=== PATIENT | male | born 1975 | race Two or more races ===

== ENCOUNTER 2021-04-24 18:03 | Inpatient (IN) | payer OTHER ==
[~2021-04-24] VITALS: Ht 165.1 cm; Wt 138.8 kg
[2021-04-24 18:20] VITALS: BP 165/87
[2021-04-24 19:00] VITALS: BP 152/83
[2021-04-24] MEDS ORDERED: DEXTROSE 50% 25 GM / 50ML DISP.SYRIN. IV PRN (19:45)
[2021-04-24] MEDS ORDERED: hydrALAZINE 20 MG/ML VIAL. IVP PRN (19:45)
[2021-04-24 20:00] VITALS: BP 119/80
[2021-04-24] MEDS ORDERED: REMDESIVIR LOAD in IV NORMAL SALINE 250ML TV IV ONE (20:00)
[2021-04-24] MEDS: LIDOCAINE (700MG/PATCH) PATCH. TD SCH (20:58)
[2021-04-24] MEDS: INSULIN LISPRO 300 UNITS/3 ML VIAL. SQ SCH (20:59)
[2021-04-24 21:00] VITALS: BP 131/85
[2021-04-24 22:00] VITALS: BP 126/79
[2021-04-24 23:00] VITALS: BP 137/82
[2021-04-25] VITALS (24 sets, daily range): BP systolic 115–161; BP diastolic 62–95
[2021-04-25] MEDS ORDERED: STERILE WATER for RESP 1,000 ML BAG. INH PRN (00:30)
[2021-04-25 09:06] LABS: BASE EXCESS ABG -2 mmol/L (-3-3); HCO3 ABG 23 mmol/L (21-28); PCO2 ABG 38 mmHg (35-46); PO2 ABG 101 mmHg (75-108); SAT O2 ABG 97 % (92-99)
[2021-04-25 09:08] LABS: FIO2 ABG 100
[2021-04-25] MEDS: DEXAMETHASONE SOD PHOS 4 MG/ML VIAL IVP SCH (09:19)
[2021-04-25] MEDS: INSULIN LISPRO 300 UNITS/3 ML VIAL. SQ SCH ×4 (09:19→20:13)
[2021-04-25 09:21] LABS: BASO % 0 % (0-3); EOS % 0 % (0-3); HEMATOCRIT 41.9 % (39.0-53.0); HEMOGLOBIN 14.3 g/dL (13.0-17.5); LYMPH # 0.3 x10^3/uL (1.0-4.8); LYMPH % 7 % (24-48); MEAN CORPUSCULAR HEMOGLOBIN 30 pg (25-35); MEAN CORPUSCULAR HGB CONC 34 g/dL (31-37); MEAN CORPUSCULAR VOLUME 87 fL (79-100); MONO # 0.3 x10^3/uL (0.0-1.1); MONO % 7 % (0-9); NEUT # 3.3 x10^3/uL (1.8-7.7); NEUT % 86 % (31-73); PLATELET COUNT 168 x10^3/uL (140-400); RED BLOOD COUNT 4.82 x10^6/uL (4.30-5.70); RED CELL DISTRIBUTION WIDTH 14.2 % (11.5-14.5); WHITE BLOOD COUNT 3.9 x10^3/uL (4.0-11.0)
[2021-04-25] MEDS: LIDOCAINE (700MG/PATCH) PATCH. TD SCH (09:21)
[2021-04-25 09:31] LABS: CALCIUM 8.1 mg/dL (8.5-10.1); CREATININE 1.1 mg/dL (0.7-1.3); GFR 71.8; POTASSIUM 4.6 mmol/L (3.5-5.1)
--- NOTE | 2021-04-25 09:42 | RAD ---
XR CHEST 1V INDICATION: Covid . COMPARISON STUDY: 04/24/2021. FINDINGS: Lungs: Normal lung volume. Stable diffuse bilateral opacities. Pleura: No pleural effusion or pneumothorax. Heart and Mediastinum: Stable cardiomediastinal silhouette and great vessels. Bones and Soft Tissues: Stable regional skeleton and soft tissues. IMPRESSION: Stable diffuse bilateral opacities. Electronically signed by: Edwin Pascual MD (04/25/2021 9:40 AM) [id number]
[2021-04-25 10:22] LABS: % BANDS 5 % (0-9); % LYMPHS 10 % (24-48); % MONOS 2 % (0-10); % SEGS 83 % (35-66)
[2021-04-25 10:23] LABS: PLT ESTIMATE ADEQUATE (ADEQUATE)
[2021-04-25] MEDS ORDERED: HYDROcodone/APAP 5/325MG 1 TAB TABLET PO PRN (12:00)
--- NOTE | 2021-04-25 12:16 | CONS ---
DATE OF CONSULTATION: 04/25/2021 ATTENDING PHYSICIAN: Dr. Conroy. CONSULTING PHYSICIAN: Monique De Oliveira MD REASON FOR CONSULTATION: The patient is seen in pulmonary consultation at the request of Dr. Conroy for COVID-19 positivity, acute respiratory failure. HISTORY OF PRESENT ILLNESS: The patient is a 45-year-old who was transferred from . He basically has no underlying respiratory disorder. He was tested positive on 04/23/2021, progressed to increasing shortness of breath. He has received IV steroids and IV remdesivir. PAST MEDICAL AND SURGICAL HISTORY: Unremarkable. ALLERGIES: No known drug allergies. SOCIAL HISTORY: Unknown. REVIEW OF SYSTEMS: Unobtainable secondary to patient's condition. CURRENT MEDICATIONS: List was reviewed. Once again, he has received IV steroids and IV remdesivir. He is also on Lovenox 60 q.12h. PHYSICAL EXAMINATION: GENERAL APPEARANCE: Obese individual with a BMI of 51, currently on BiPAP. I spoke with RT. He does better on BiPAP than Vapotherm. RESPIRATORY: On visual inspection, he had increased respiratory rate, but was maintaining saturations above 90%. He had minimal edema. No significant paroxysmal breathing patterns. DIAGNOSTIC DATA: Chest x-ray and labs reviewed compatible with CHF. CT of the chest was reviewed. White count was low. Arterial blood gas earlier pH of 7.40, PaCO2 of 38, pO2 of 101. Electrolytes were noted. BUN and creatinine were normal. IMPRESSION: 1. Acute hypoxemic respiratory failure secondary to COVID-19 viral pneumonia. 2. COVID-19 viral pneumonia, acute respiratory distress syndrome. 3. Morbid obesity. PLAN: 1. Continue current support with BiPAP, the patient does better with BiPAP and Vapotherm. 2. Monitor closely, he may end up being intubated. 3. Remdesivir. 4. Steroids. 5. Deep venous thrombosis prophylaxis. 6. CT angiogram reviewed, no evidence of pulmonary embolism. We will decrease Lovenox to once daily. I do appreciate the privilege in sharing in the patient's care. ALEXANDR/CORDELIA SEGUNDO: Gerald TID: [id number]
--- NOTE | 2021-04-25 14:30 | HP ---
ADMIT DATE: 04/24/2021 CHIEF COMPLAINT: Respiratory failure. HISTORY OF PRESENT ILLNESS: The patient is a pleasant 45-year-old male who presented to [facility] with respiratory failure. He is COVID-19 positive. He has now been transferred to our intensive care unit where he is being examined in room 114. He is currently on BiPAP and Vapotherm. PAST MEDICAL HISTORY: None. ALLERGIES: None. FAMILY HISTORY: Hypertension. SOCIAL HISTORY: Does not drink, smoke or take drugs. MEDICATIONS: Reviewed, please refer to the MRAD. REVIEW OF SYSTEMS: Unable to obtain. The patient is quite weak and resting. PHYSICAL EXAMINATION: VITALS: His respiratory rate is about 20, O2 sat is 90%. GENERAL: No apparent distress. Alert and oriented. HEENT: He has BiPAP and Vapotherm on. EYES: Extraocular muscles are intact, pupils are equally round and reactive to light and accommodation MUSCULOSKELETAL: Well developed, well nourished, good range of motion ENDOCRINE: No thyromegaly was palpated LYMPHATICS: No cervical chain or axillary nodes were noted HEMATOPOIETIC: No bruising NECK: Supple, no JVD, no thyromegaly was noted. LUNGS: He has bibasilar crackles. HEART: RRR, S1, S2 present. Peripheral pulses intact, no obvious murmurs were noted. ABDOMEN: Soft, nontender. Positive bowel sounds no organomegaly, normal bowel sounds. EXTREMITIES: He has 1+ edema. He also has SCDs in place. NEUROLOGIC: Normal speech, normal tone. A and O x3, moves all extremities, no obvious focal deficits. PSYCHIATRIC: Normal affect, normal mood. Stable. SKIN: No ulcerations or rashes, good skin turgor, no jaundice. VASCULAR: Good capillary refill, neurovascular bundle appears to be intact. DIAGNOSTIC STUDIES: Chest x-ray shows pneumonia and heart failure with stable diffuse bilateral opacities. LABORATORY DATA: White count 3.9, hemoglobin 14, platelets 168. Electrolytes are normal. Glucose is a little high at 243. Calcium is low at 8.1. ASSESSMENT AND PLAN: COVID-19, respiratory failure. The patient has been admitted to the ICU. We are using COVID protocol including remdesivir, steroids, antibiotics, vitamins, minerals, beta agonist, oxygen, cough syrup, aspirin and we will try to continue his other home meds. DVT prophylaxis. Full code. PROGNOSIS: Guarded. CC TIME: [address]: Salvatore TID: [phone]
[2021-04-25] MEDS: REMDESIVIR 100mg in NORMAL SALINE 250ML X 4 DAYS IV SCH (19:31)
[2021-04-25] MEDS: LACTOBACILLUS RHAMNOSUS GG 1 CAPSULE. PO SCH (20:12)
[2021-04-25] MEDS: PATCH REMOVAL. MC SCH (20:13)
[2021-04-26] VITALS (23 sets, daily range): BP systolic 93–144; BP diastolic 67–89
[2021-04-26] MEDS ORDERED: SALIVA STIMULANT AGENT 44ML SPRAY BOTTLE. PO PRN (04:30)
[2021-04-26 06:08] LABS: HEMATOCRIT 42.7 % (39.0-53.0); HEMOGLOBIN 14.2 g/dL (13.0-17.5); RED BLOOD COUNT 4.85 x10^6/uL (4.30-5.70); RED CELL DISTRIBUTION WIDTH 14.1 % (11.5-14.5)
[2021-04-26 06:22] LABS: CALCIUM 8.6 mg/dL (8.5-10.1); GFR 80.1; POTASSIUM 5.1 mmol/L (3.5-5.1)
--- NOTE | 2021-04-26 08:30 | PDOC ---
PULMONARY PROGRESS NOTES DATE: 04/26/21 TIME: 08:29 Subjective Patient appears comfortable on BiPAP Vitals Vital Signs Date Time Temp Pulse Resp B/P (MAP) Pulse Ox O2 Delivery O2 Flow Rate FiO2 04/26/21 06:00 80 23 134/79 (97) 94 BiPAP/CPAP 04/26/21 04:00 98.8 98.8 Comments Patient is seen doing the COVID-19 viral pandemic, no paroxysmal breathing pattern, minimal edema. Labs Laboratory Tests Test 04/24/21 20:55 04/25/21 08:00 04/25/21 08:55 04/25/21 12:40 Glucose (Fingerstick) 243 mg/dL (70-99) 234 mg/dL (70-99) 253 mg/dL (70-99) O2 Saturation 97 % (92-99) Arterial Blood pH 7.40 (7.35-7.45) Arterial Blood pCO2 at Patient Temp 38 mmHg (35-46) Arterial Blood pO2 at Patient Temp 101 mmHg (75-108) Arterial Blood HCO3 23 mmol/L (21-28) Arterial Blood Base Excess -2 mmol/L (-3-3) FiO2 100 White Blood Count 3.9 x10^3/uL (4.0-11.0) Red Blood Count 4.82 x10^6/uL (4.30-5.70) Hemoglobin 14.3 g/dL (13.0-17.5) Hematocrit 41.9 % (39.0-53.0) Mean Corpuscular Volume 87 fL (79-100) Mean Corpuscular Hemoglobin 30 pg (25-35) Mean Corpuscular Hemoglobin Concent 34 g/dL (31-37) Red Cell Distribution Width 14.2 % (11.5-14.5) Platelet Count 168 x10^3/uL (140-400) Neutrophils (%) (Auto) 86 % (31-73) Lymphocytes (%) (Auto) 7 % (24-48) Monocytes (%) (Auto) 7 % (0-9) Eosinophils (%) (Auto) 0 % (0-3) Basophils (%) (Auto) 0 % (0-3) Neutrophils # (Auto) 3.3 x10^3/uL (1.8-7.7) Lymphocytes # (Auto) 0.3 x10^3/uL (1.0-4.8) Monocytes # (Auto) 0.3 x10^3/uL (0.0-1.1) Eosinophils # (Auto) 0.0 x10^3/uL (0.0-0.7) Basophils # (Auto) 0.0 x10^3/uL (0.0-0.2) Segmented Neutrophils % 83 % (35-66) Band Neutrophils % 5 % (0-9) Lymphocytes % 10 % (24-48) Monocytes % 2 % (0-10) Platelet Estimate Adequate (ADEQUATE) Sodium Level 138 mmol/L (136-145) Potassium Level 4.6 mmol/L (3.5-5.1) Chloride Level 102 mmol/L (98-107) Carbon Dioxide Level 25 mmol/L (21-32) Anion Gap 11 (6-14) Blood Urea Nitrogen 18 mg/dL (8-26) Creatinine 1.1 mg/dL (0.7-1.3) Estimated GFR (Cockcroft-Gault) 71.8 Glucose Level 232 mg/dL (70-99) Calcium Level 8.1 mg/dL (8.5-10.1) Test 04/25/21 17:49 04/25/21 20:08 04/26/21 05:55 Glucose (Fingerstick) 273 mg/dL (70-99) 237 mg/dL (70-99) White Blood Count 5.0 x10^3/uL (4.0-11.0) Red Blood Count 4.85 x10^6/uL (4.30-5.70) Hemoglobin 14.2 g/dL (13.0-17.5) Hematocrit 42.7 % (39.0-53.0) Mean Corpuscular Volume 88 fL (79-100) Mean Corpuscular Hemoglobin 29 pg (25-35) Mean Corpuscular Hemoglobin Concent 33 g/dL (31-37) Red Cell Distribution Width 14.1 % (11.5-14.5) Platelet Count 212 x10^3/uL (140-400) Sodium Level 138 mmol/L (136-145) Potassium Level 5.1 mmol/L (3.5-5.1) Chloride Level 103 mmol/L (98-107) Carbon Dioxide Level 26 mmol/L (21-32) Anion Gap 9 (6-14) Blood Urea Nitrogen 22 mg/dL (8-26) Creatinine 1.0 mg/dL (0.7-1.3) Estimated GFR (Cockcroft-Gault) 80.1 Glucose Level 211 mg/dL (70-99) Calcium Level 8.6 mg/dL (8.5-10.1) Laboratory Tests Test 04/25/21 08:55 04/25/21 12:40 04/25/21 17:49 04/25/21 20:08 White Blood Count 3.9 x10^3/uL (4.0-11.0) Red Blood Count 4.82 x10^6/uL (4.30-5.70) Hemoglobin 14.3 g/dL (13.0-17.5) Hematocrit 41.9 % (39.0-53.0) Mean Corpuscular Volume 87 fL (79-100) Mean Corpuscular Hemoglobin 30 pg (25-35) Mean Corpuscular Hemoglobin Concent 34 g/dL (31-37) Red Cell Distribution Width 14.2 % (11.5-14.5) Platelet Count 168 x10^3/uL (140-400) Neutrophils (%) (Auto) 86 % (31-73) Lymphocytes (%) (Auto) 7 % (24-48) Monocytes (%) (Auto) 7 % (0-9) Eosinophils (%) (Auto) 0 % (0-3) Basophils (%) (Auto) 0 % (0-3) Neutrophils # (Auto) 3.3 x10^3/uL (1.8-7.7) Lymphocytes # (Auto) 0.3 x10^3/uL (1.0-4.8) Monocytes # (Auto) 0.3 x10^3/uL (0.0-1.1) Eosinophils # (Auto) 0.0 x10^3/uL (0.0-0.7) Basophils # (Auto) 0.0 x10^3/uL (0.0-0.2) Segmented Neutrophils % 83 % (35-66) Band Neutrophils % 5 % (0-9) Lymphocytes % 10 % (24-48) Monocytes % 2 % (0-10) Platelet Estimate Adequate (ADEQUATE) Sodium Level 138 mmol/L (136-145) Potassium Level 4.6 mmol/L (3.5-5.1) Chloride Level 102 mmol/L (98-107) Carbon Dioxide Level 25 mmol/L (21-32) Anion Gap 11 (6-14) Blood Urea Nitrogen 18 mg/dL (8-26) Creatinine 1.1 mg/dL (0.7-1.3) Estimated GFR (Cockcroft-Gault) 71.8 Glucose Level 232 mg/dL (70-99) Glucose (Fingerstick) 234 mg/dL (70-99) 253 mg/dL (70-99) 273 mg/dL (70-99) 237 mg/dL (70-99) Calcium Level 8.1 mg/dL (8.5-10.1) Test 04/26/21 05:55 White Blood Count 5.0 x10^3/uL (4.0-11.0) Red Blood Count 4.85 x10^6/uL (4.30-5.70) Hemoglobin 14.2 g/dL (13.0-17.5) Hematocrit 42.7 % (39.0-53.0) Mean Corpuscular Volume 88 fL (79-100) Mean Corpuscular Hemoglobin 29 pg (25-35) Mean Corpuscular Hemoglobin Concent 33 g/dL (31-37) Red Cell Distribution Width 14.1 % (11.5-14.5) Platelet Count 212 x10^3/uL (140-400) Sodium Level 138 mmol/L (136-145) Potassium Level 5.1 mmol/L (3.5-5.1) Chloride Level 103 mmol/L (98-107) Carbon Dioxide Level 26 mmol/L (21-32) Anion Gap 9 (6-14) Blood Urea Nitrogen 22 mg/dL (8-26) Creatinine 1.0 mg/dL (0.7-1.3) Estimated GFR (Cockcroft-Gault) 80.1 Glucose Level 211 mg/dL (70-99) Calcium Level 8.6 mg/dL (8.5-10.1) Impression . IMPRESSION: 1. Acute hypoxemic respiratory failure secondary to COVID-19 viral pneumonia. 2. COVID-19 viral pneumonia, acute respiratory distress syndrome. 3. Morbid obesity. Plan . Updated 04/26 Patient appears to be doing well on BiPAP Remdesivir DVT GI prophylaxis Nutritional support Steroid PLAN: 1. Continue current support with BiPAP, the patient does better with BiPAP and Vapotherm. 2. Monitor closely, he may end up being intubated. 3. Remdesivir. 4. Steroids. 5. Deep venous thrombosis prophylaxis. 6. CT angiogram reviewed, no evidence of pulmonary embolism. We will decrease Lovenox to once daily. I do appreciate the privilege in sharing in the patient's care. HEATHER MOLINA MD Apr 26, 2021 08:30
[2021-04-26 09:47] LABS: BASE EXCESS ABG 1 mmol/L (-3-3); HCO3 ABG 25 mmol/L (21-28); PCO2 ABG 42 mmHg (35-46); PO2 ABG 67 mmHg (75-108); SAT O2 ABG 94 % (92-99)
[2021-04-26 09:49] LABS: FIO2 ABG 100
[2021-04-26] MEDS: LACTOBACILLUS RHAMNOSUS GG 1 CAPSULE. PO SCH ×2 (09:59→20:24)
[2021-04-26] MEDS: DEXAMETHASONE SOD PHOS 4 MG/ML VIAL IVP SCH (09:59)
[2021-04-26] MEDS: LIDOCAINE (700MG/PATCH) PATCH. TD SCH (10:00)
[2021-04-26] MEDS: INSULIN LISPRO 300 UNITS/3 ML VIAL. SQ SCH ×4 (10:06→20:42)
--- NOTE | 2021-04-26 11:37 | NUR ---
SS following for discharge planning. SS reviewed pt chart and discussed with pt RN. Pt is from home and is currently on the BIPAP at 100%. COVID19 positive. Pt on IV Remdesivir and IV Decadron. Not stable. SS will continue to follow for discharge planning.
--- NOTE | 2021-04-26 13:50 | PDOC ---
[employer] PROGRESS NOTE Date of Service DOS: DATE: 04/26/21 TIME: 13:48 Chief Complaint Chief Complaint COVID-19 respiratory failure History of Present Illness History of Present Illness 04/26/2021 Patient seen and examined in the ICU He is on BiPAP with as needed Vapotherm Has IV remdesivir hanging Discussed with RN Chart reviewed He appears critically ill Vitals/I&O Vitals/I&O: Vital Signs Date Time Temp Pulse Resp B/P (MAP) Pulse Ox O2 Delivery O2 Flow Rate FiO2 04/26/21 12:45 94 BiPAP/CPAP 04/26/21 10:00 78 20 131/88 (102) 04/26/21 04:00 98.8 98.8 I & O 04/25/21 04/25/21 04/26/21 15:00 23:00 07:00 Intake Total 900 ml 400 ml Output Total 1000 ml 450 ml Balance -100 ml 400 ml -450 ml Physical Exam General: severe distress Heart: Other (Tachycardic) Lungs: Crackles Abdomen: No tenderness Extremities: No clubbing Skin: No rashes Labs Labs: Laboratory Tests Test 04/25/21 17:49 04/25/21 20:08 04/26/21 05:55 04/26/21 08:00 Glucose (Fingerstick) 273 mg/dL (70-99) 237 mg/dL (70-99) White Blood Count 5.0 x10^3/uL (4.0-11.0) Red Blood Count 4.85 x10^6/uL (4.30-5.70) Hemoglobin 14.2 g/dL (13.0-17.5) Hematocrit 42.7 % (39.0-53.0) Mean Corpuscular Volume 88 fL (79-100) Mean Corpuscular Hemoglobin 29 pg (25-35) Mean Corpuscular Hemoglobin Concent 33 g/dL (31-37) Red Cell Distribution Width 14.1 % (11.5-14.5) Platelet Count 212 x10^3/uL (140-400) Sodium Level 138 mmol/L (136-145) Potassium Level 5.1 mmol/L (3.5-5.1) Chloride Level 103 mmol/L (98-107) Carbon Dioxide Level 26 mmol/L (21-32) Anion Gap 9 (6-14) Blood Urea Nitrogen 22 mg/dL (8-26) Creatinine 1.0 mg/dL (0.7-1.3) Estimated GFR (Cockcroft-Gault) 80.1 Glucose Level 211 mg/dL (70-99) Calcium Level 8.6 mg/dL (8.5-10.1) O2 Saturation 94 % (92-99) Arterial Blood pH 7.41 (7.35-7.45) Arterial Blood pCO2 at Patient Temp 42 mmHg (35-46) Arterial Blood pO2 at Patient Temp 67 mmHg (75-108) Arterial Blood HCO3 25 mmol/L (21-28) Arterial Blood Base Excess 1 mmol/L (-3-3) FiO2 100 Assessment and Plan Assessmemt and Plan COVID-19 respiratory failure Plan ICU monitoring Covid protocol Remdesivir IV antibiotics IV steroids Vitamins and minerals Antitussives Trying to titrate down O2 requirements continue BiPAP Aspirin Home meds DVT prophylaxis Full code Prognosis guarded He remains critically ill CC time 31-minute Comment Review of Relevant I have reviewed the following items jeanne (where applicable) has been applied. Medications: Current Medications Medications (Trade) Dose Ordered Sig/Berna Route PRN Reason Start Time Stop Time Status Last Admin Dose Admin Remdesivir 100 mg/ Sodium Chloride 230 ml @ 460 mls/hr Q24H IV 04/25/21 20:00 04/28/21 20:29 04/25/21 19:31 Miscellaneous (Lidoderm Patch Removal) 1 ea QHS MC 04/25/21 21:00 04/25/21 20:13 Enoxaparin Sodium (Lovenox 60mg Syringe) 60 mg DAILY SQ 04/26/21 09:00 04/26/21 09:59 Lactobacillus Rhamnosus (Culturelle) 1 cap BID PO 04/25/21 21:00 04/26/21 09:59 Justifications for Admission Other Justification MITCHELL FAUST III DO Apr 26, 2021 13:50
[2021-04-26] MEDS: ASPIRIN CHEWABLE 81 MG TABLET. PO SCH (18:19)
[2021-04-26] MEDS: cefTRIAXone IV Push 1 GM VIAL. IVP SCH (18:19)
[2021-04-26] MEDS: MULTIVITAMIN with MINERAL TABLET. PO SCH (18:19)
[2021-04-26] MEDS: DOXYCYCLINE HYCLATE 100 MG in IV DEXTROSE 5% 100ML 100 ML IV SCH ×2 (18:20→20:24)
[2021-04-26] MEDS: REMDESIVIR 100mg in NORMAL SALINE 250ML X 4 DAYS IV SCH (20:15)
[2021-04-26] MEDS: PATCH REMOVAL. MC SCH (20:24)
[2021-04-27] VITALS (24 sets, daily range): BP systolic 119–149; BP diastolic 72–88
[2021-04-27] MEDS: ASPIRIN CHEWABLE 81 MG TABLET. PO SCH (07:50)
[2021-04-27] MEDS: INSULIN LISPRO 300 UNITS/3 ML VIAL. SQ SCH ×4 (07:51→21:21)
[2021-04-27] MEDS: LACTOBACILLUS RHAMNOSUS GG 1 CAPSULE. PO SCH ×2 (08:50→21:11)
[2021-04-27] MEDS: MULTIVITAMIN with MINERAL TABLET. PO SCH (08:50)
[2021-04-27] MEDS: DEXAMETHASONE SOD PHOS 4 MG/ML VIAL IVP SCH (08:51)
[2021-04-27] MEDS: LIDOCAINE (700MG/PATCH) PATCH. TD SCH (08:52)
[2021-04-27] MEDS: DOXYCYCLINE HYCLATE 100 MG in IV DEXTROSE 5% 100ML 100 ML IV SCH ×2 (08:54→21:11)
--- NOTE | 2021-04-27 09:33 | PDOC ---
PULMONARY PROGRESS NOTES DATE: 04/27/21 TIME: 09:33 Subjective Patient appears comfortable on BiPAP Vitals Vital Signs Date Time Temp Pulse Resp B/P (MAP) Pulse Ox O2 Delivery O2 Flow Rate FiO2 04/27/21 09:00 75 33 146/82 (103) 90 BiPAP/CPAP 04/27/21 08:00 97.9 97.9 Comments Patient is seen doing the COVID-19 viral pandemic, no paroxysmal breathing pattern, minimal edema. Lungs: Crackles Labs Laboratory Tests Test 04/25/21 12:40 04/25/21 17:49 04/25/21 20:08 04/26/21 05:55 Glucose (Fingerstick) 253 mg/dL (70-99) 273 mg/dL (70-99) 237 mg/dL (70-99) White Blood Count 5.0 x10^3/uL (4.0-11.0) Red Blood Count 4.85 x10^6/uL (4.30-5.70) Hemoglobin 14.2 g/dL (13.0-17.5) Hematocrit 42.7 % (39.0-53.0) Mean Corpuscular Volume 88 fL (79-100) Mean Corpuscular Hemoglobin 29 pg (25-35) Mean Corpuscular Hemoglobin Concent 33 g/dL (31-37) Red Cell Distribution Width 14.1 % (11.5-14.5) Platelet Count 212 x10^3/uL (140-400) Sodium Level 138 mmol/L (136-145) Potassium Level 5.1 mmol/L (3.5-5.1) Chloride Level 103 mmol/L (98-107) Carbon Dioxide Level 26 mmol/L (21-32) Anion Gap 9 (6-14) Blood Urea Nitrogen 22 mg/dL (8-26) Creatinine 1.0 mg/dL (0.7-1.3) Estimated GFR (Cockcroft-Gault) 80.1 Glucose Level 211 mg/dL (70-99) Calcium Level 8.6 mg/dL (8.5-10.1) Test 04/26/21 08:00 04/26/21 08:27 04/26/21 18:30 04/26/21 20:33 O2 Saturation 94 % (92-99) Arterial Blood pH 7.41 (7.35-7.45) Arterial Blood pCO2 at Patient Temp 42 mmHg (35-46) Arterial Blood pO2 at Patient Temp 67 mmHg (75-108) Arterial Blood HCO3 25 mmol/L (21-28) Arterial Blood Base Excess 1 mmol/L (-3-3) FiO2 100 Glucose (Fingerstick) 188 mg/dL (70-99) 212 mg/dL (70-99) 262 mg/dL (70-99) Laboratory Tests Test 04/26/21 18:30 04/26/21 20:33 Glucose (Fingerstick) 212 mg/dL (70-99) 262 mg/dL (70-99) Impression . IMPRESSION: 1. Acute hypoxemic respiratory failure secondary to COVID-19 viral pneumonia. 2. COVID-19 viral pneumonia, acute respiratory distress syndrome. 3. Morbid obesity. Plan . Updated 04/27 Patient continues to be okay with BiPAP Remdesivir Steroids Nutritional support updated 04/26 Patient appears to be doing well on BiPAP Remdesivir DVT GI prophylaxis Nutritional support Steroid PLAN: 1. Continue current support with BiPAP, the patient does better with BiPAP and Vapotherm. 2. Monitor closely, he may end up being intubated. 3. Remdesivir. 4. Steroids. 5. Deep venous thrombosis prophylaxis. 6. CT angiogram reviewed, no evidence of pulmonary embolism. We will decrease Lovenox to once daily. I do appreciate the privilege in sharing in the patient's care. HEATHER MOLINA MD Apr 27, 2021 09:33
--- NOTE | 2021-04-27 09:42 | PDOC ---
[facility] [facility] PROGRESS NOTE Date of Service DOS: DATE: 04/27/21 TIME: 09:26 Chief Complaint Chief Complaint CC: COVID-19 viral pneumonia Acute hypoxemic respiratory failure Morbid obesity History of Present Illness History of Present Illness 04/26/2021 Patient seen and examined in the ICU He is on BiPAP with as needed Vapotherm Has IV remdesivir hanging Discussed with RN Chart reviewed He appears critically ill 04/27/21: Patient was seen and examined in the ICU today. Afebrile, morbidly obese patient. Currently on BiPAP 06/06. O2 saturation while examined was 100%. Discussed with RN who said patient stated he preferred to be on BiPAP over non- rebreather or Vapotherm. His blood sugar was high today and he was given insulin to bring that down. Patient also has history of anxiety so has been given Xanax. Patient complains of upper back pain so has a Lidocaine patch which he says has been working well for that pain. Chart reviewed. Vitals/I&O Vitals/I&O: Vital Signs Date Time Temp Pulse Resp B/P (MAP) Pulse Ox O2 Delivery O2 Flow Rate FiO2 04/27/21 08:11 100 BiPAP/CPAP 04/27/21 08:00 97.9 63 25 149/79 (102) 97.9 I & O 04/26/21 04/26/21 04/27/21 15:00 23:00 07:00 Intake Total 570 ml Output Total 500 ml 0 ml 400 ml Balance -500 ml 570 ml -400 ml Physical Exam General: Oriented X3, severe distress Heart: Other (Tachycardic) Lungs: Crackles Abdomen: No tenderness Extremities: No clubbing Skin: No rashes Labs Labs: Laboratory Tests Test 04/26/21 18:30 04/26/21 20:33 Glucose (Fingerstick) 212 mg/dL (70-99) 262 mg/dL (70-99) Review of Systems Review of Systems: GI: no nausea. no vomiting. MSK: patient admits upper back pain. Eyes: no changes in vision. no blurry vision. Psych: patient admits anxiety. Assessment and Plan Assessmemt and Plan COVID-19 viral pneumonia Acute hypoxemic respiratory failure Morbid obesity Plan: 1. ICU monitoring 2. Covid protocol (Remdesivir day 3, aspirin, multivitamin, Robitussin, dexamethasone) 3. Continue IV antibiotics 4. Continue BiPAP and try to titrate down O2 requirements 5. Home meds 6. Full code 7. Appreciate subspecialist input 8. Prognosis guarded CC time 32 minutes Comment Review of Relevant I have reviewed the following items jeanne (where applicable) has been applied. Medications: Current Medications Medications (Trade) Dose Ordered Sig/Berna Route PRN Reason Start Time Stop Time Status Last Admin Dose Admin Multivitamins (Thera M Plus) 1 tab DAILY PO 04/26/21 14:00 04/27/21 08:50 Aspirin (Aspirin Chewable) 81 mg [id number] PO 04/26/21 14:00 04/27/21 07:50 Doxycycline Hyclate 100 mg/ Dextrose 100 ml @ 50 mls/hr Q12HR IV 04/26/21 14:00 04/27/21 08:54 Ceftriaxone Sodium (Rocephin) 1 gm Q24H IVP 04/26/21 14:00 04/26/21 18:19 Justifications for Admission Other Justification MITCHELL FAUST III DO Apr 27, 2021 09:42
[2021-04-27] MEDS: cefTRIAXone IV Push 1 GM VIAL. IVP SCH (15:07)
--- NOTE | 2021-04-27 16:23 | NUR ---
SS following up with discharge planning. SS reviewed pt chart and discussed with pt RN. Pt is currently on BIPAP at 100%. COVID19 positive. Pt on IV Remdesivir, IV Decadron, IV Rocephin, and IV Doxycycline. Pt primarily Omani speaking. Pt's family requesting DPOA paperwork as son is too young to make decisions. DPOA paperwork in Omani and Maltese left on the chart. SS left voicemail for pt's nephewSergio, , requesting assistance with translating for name, address, and phone number of who DPOA would be listed. Pt's RN notified. SS will continue to follow for discharge planning.
[2021-04-27] MEDS: REMDESIVIR 100mg in NORMAL SALINE 250ML X 4 DAYS IV SCH (19:50)
--- NOTE | 2021-04-27 20:11 | NUR ---
Pt in bed resting comfortable do not appear to be in pain or distress at this time assessment completed vss poc explained pt Japanese speaking only call light in reach. Pt on bipap will resume care and continue to monitor pt.
[2021-04-27] MEDS: PATCH REMOVAL. MC SCH (21:11)
[2021-04-28] VITALS (24 sets, daily range): BP systolic 99–153; BP diastolic 60–91
[2021-04-28] MEDS: DEXAMETHASONE SOD PHOS 4 MG/ML VIAL IVP SCH (08:48)
[2021-04-28] MEDS: LACTOBACILLUS RHAMNOSUS GG 1 CAPSULE. PO SCH ×2 (08:48→20:34)
[2021-04-28] MEDS: ASPIRIN CHEWABLE 81 MG TABLET. PO SCH (08:48)
[2021-04-28] MEDS: MULTIVITAMIN with MINERAL TABLET. PO SCH (08:48)
[2021-04-28] MEDS: INSULIN LISPRO 300 UNITS/3 ML VIAL. SQ SCH ×4 (08:50→20:36)
[2021-04-28] MEDS: LIDOCAINE (700MG/PATCH) PATCH. TD SCH (08:54)
[2021-04-28] MEDS: DOXYCYCLINE HYCLATE 100 MG in IV DEXTROSE 5% 100ML 100 ML IV SCH ×2 (08:55→20:33)
--- NOTE | 2021-04-28 09:34 | PDOC ---
PULMONARY PROGRESS NOTES DATE: 04/28/21 TIME: 09:34 Subjective Patient appears comfortable on BiPAP, currently eating Vitals Vital Signs Date Time Temp Pulse Resp B/P (MAP) Pulse Ox O2 Delivery O2 Flow Rate FiO2 04/28/21 08:49 97 BiPAP/CPAP 04/28/21 06:00 63 20 136/83 (100) 04/28/21 04:00 40.0 04/28/21 03:00 98.4 98.4 Comments Patient is seen doing the COVID-19 viral pandemic, no paroxysmal breathing pattern, minimal edema. Lungs: Crackles Labs Laboratory Tests Test 04/26/21 18:30 04/26/21 20:33 04/27/21 11:20 04/27/21 17:01 Glucose (Fingerstick) 212 mg/dL (70-99) 262 mg/dL (70-99) 265 mg/dL (70-99) 272 mg/dL (70-99) Test 04/27/21 21:18 Glucose (Fingerstick) 288 mg/dL (70-99) Laboratory Tests Test 04/27/21 11:20 04/27/21 17:01 04/27/21 21:18 Glucose (Fingerstick) 265 mg/dL (70-99) 272 mg/dL (70-99) 288 mg/dL (70-99) Impression . IMPRESSION: 1. Acute hypoxemic respiratory failure secondary to COVID-19 viral pneumonia. 2. COVID-19 viral pneumonia, acute respiratory distress syndrome. 3. Morbid obesity. Plan . Updated 04/28 Appears to be holding his own Continue BiPAP Remdesivir, steroids Nutritional support DVT prophylaxis adjusted dosage Discontinue Rocephin updated 04/27 Patient continues to be okay with BiPAP Remdesivir Steroids Nutritional support updated 04/26 Patient appears to be doing well on BiPAP Remdesivir DVT GI prophylaxis Nutritional support Steroid HEATHER MOLINA MD Apr 28, 2021 09:34
--- NOTE | 2021-04-28 11:10 | PDOC ---
[facility] PROGRESS NOTE Date of Service DOS: DATE: 04/28/21 TIME: 11:02 Chief Complaint Chief Complaint CC: COVID-19 viral pneumonia Acute hypoxemic respiratory failure Morbid obesity History of Present Illness History of Present Illness 04/26/2021 Patient seen and examined in the ICU He is on BiPAP with as needed Vapotherm Has IV remdesivir hanging Discussed with RN Chart reviewed He appears critically ill 04/27/21: Patient was seen and examined in the ICU today. Afebrile, morbidly obese patient. Currently on BiPAP 06/06. O2 saturation while examined was 100%. Discussed with RN who said patient stated he preferred to be on BiPAP over non- rebreather or Vapotherm. His blood sugar was high today and he was given insulin to bring that down. Patient also has history of anxiety so has been given Xanax. Patient complains of upper back pain so has a Lidocaine patch which he says has been working well for that pain. Chart reviewed. 04/28/21: Patient was seen and examined in the ICU. Currently on BiPAP 08/06 with 100% FiO2. His O2 sat was at 99% while being examined. Peralta to bedside in place. Discussed with RN. Chart reviewed. Vitals/I&O Vitals/I&O: Vital Signs Date Time Temp Pulse Resp B/P (MAP) Pulse Ox O2 Delivery O2 Flow Rate FiO2 04/28/21 10:25 97 BiPAP/CPAP 04/28/21 06:00 63 20 136/83 (100) 04/28/21 04:00 40.0 04/28/21 03:00 98.4 98.4 I & O 04/27/21 04/27/21 04/28/21 14:59 22:59 06:59 Intake Total 340 ml 480 ml 200 ml Output Total 525 ml 550 ml 800 ml Balance -185 ml -70 ml -600 ml Physical Exam General: Oriented X3, severe distress Heart: Other (Tachycardic) Lungs: Crackles Abdomen: No tenderness Extremities: No clubbing Skin: No rashes Labs Labs: Laboratory Tests Test 04/27/21 11:20 04/27/21 17:01 04/27/21 21:18 Glucose (Fingerstick) 265 mg/dL (70-99) 272 mg/dL (70-99) 288 mg/dL (70-99) Review of Systems Review of Systems: GI: no nausea. no vomiting. Eyes: no changes in vision. no blurry vision. Assessment and Plan Assessmemt and Plan COVID-19 viral pneumonia Acute hypoxemic respiratory failure Morbid obesity Plan: 1. ICU monitoring 2. Continue IV antibiotics 3. Covid protocol (Remdesivir day 4, aspirin, multivitamin, Robitussin, dexamethasone) 4. Trying to titrate down O2 requirements 5. Home meds 6. Full code 7. Appreciate subspecialist input 9. Prognosis guarded CC time 33 minutes Comment Review of Relevant I have reviewed the following items jeanne (where applicable) has been applied. Justifications for Admission Other Justification MITCHELL FAUST III DO Apr 28, 2021 11:09
[2021-04-28] MEDS: REMDESIVIR 100mg in NORMAL SALINE 250ML X 4 DAYS IV SCH (20:33)
[2021-04-28] MEDS: PATCH REMOVAL. MC SCH (20:34)
[2021-04-29] VITALS (24 sets, daily range): BP systolic 121–159; BP diastolic 74–94
[2021-04-29] MEDS: INSULIN LISPRO 300 UNITS/3 ML VIAL. SQ SCH ×4 (07:30→21:00)
[2021-04-29] MEDS: ASPIRIN CHEWABLE 81 MG TABLET. PO SCH (08:57)
[2021-04-29] MEDS: MULTIVITAMIN with MINERAL TABLET. PO SCH (08:58)
[2021-04-29] MEDS: ENOXAPARIN 40 MG/0.4 ML SYRINGE. SQ SCH (08:58)
[2021-04-29] MEDS: LACTOBACILLUS RHAMNOSUS GG 1 CAPSULE. PO SCH ×2 (08:58→21:11)
[2021-04-29] MEDS: DEXAMETHASONE SOD PHOS 4 MG/ML VIAL IVP SCH (08:58)
[2021-04-29] MEDS: LIDOCAINE (700MG/PATCH) PATCH. TD SCH ×2 (08:58→09:00)
[2021-04-29] MEDS: DOXYCYCLINE HYCLATE 100 MG in IV DEXTROSE 5% 100ML 100 ML IV SCH ×2 (09:25→21:11)
--- NOTE | 2021-04-29 09:59 | PDOC ---
PULMONARY PROGRESS NOTES DATE: 04/29/21 TIME: 09:56 Subjective Patient appears comfortable on BiPAP, 100% FiO2. Vitals Vital Signs Date Time Temp Pulse Resp B/P (MAP) Pulse Ox O2 Delivery O2 Flow Rate FiO2 04/29/21 09:00 99.5 100 25 148/81 (103) 94 BiPAP/CPAP 99.5 04/28/21 18:00 15.0 Comments Patient is seen doing the COVID-19 viral pandemic, no paroxysmal breathing pattern, minimal edema. Labs Laboratory Tests Test 04/27/21 11:20 04/27/21 17:01 04/27/21 21:18 04/28/21 08:11 Glucose (Fingerstick) 265 mg/dL (70-99) 272 mg/dL (70-99) 288 mg/dL (70-99) 183 mg/dL (70-99) Test 04/28/21 11:55 04/28/21 17:00 04/28/21 19:50 Glucose (Fingerstick) 205 mg/dL (70-99) 252 mg/dL (70-99) 302 mg/dL (70-99) Laboratory Tests Test 04/28/21 11:55 04/28/21 17:00 04/28/21 19:50 Glucose (Fingerstick) 205 mg/dL (70-99) 252 mg/dL (70-99) 302 mg/dL (70-99) Comments Chest x-ray reviewed 04/25/2021. Diffuse bilateral interstitial infiltrates Impression . IMPRESSION: 1. Acute hypoxemic respiratory failure secondary to COVID-19 viral pneumonia. 2. COVID-19 viral pneumonia, acute respiratory distress syndrome. 3. Morbid obesity. Plan . Updated 04/29 Appears to be holding his own Continue BiPAP, wean FiO2 to 95%. Status post remdesivir, steroids for total of 10 days. Nutritional support DVT prophylaxis adjusted dosage Discussed with RN and respiratory therapist. Updated 04/28 Appears to be holding his own Continue BiPAP Remdesivir, steroids Nutritional support DVT prophylaxis adjusted dosage Discontinue Rocephin updated 04/27 Patient continues to be okay with BiPAP Remdesivir Steroids Nutritional support updated 04/26 Patient appears to be doing well on BiPAP Remdesivir DVT GI prophylaxis Nutritional support Steroid ANKUR ROMEO MD Apr 29, 2021 09:59
[2021-04-29 10:24] LABS: BASO % 0 % (0-3); EOS % 0 % (0-3); HEMATOCRIT 42.9 % (39.0-53.0); HEMOGLOBIN 14.1 g/dL (13.0-17.5); LYMPH # 0.3 x10^3/uL (1.0-4.8); LYMPH % 3 % (24-48); MEAN CORPUSCULAR HEMOGLOBIN 30 pg (25-35); MEAN CORPUSCULAR HGB CONC 33 g/dL (31-37); MEAN CORPUSCULAR VOLUME 89 fL (79-100); MONO # 0.5 x10^3/uL (0.0-1.1); MONO % 4 % (0-9); NEUT % 93 % (31-73); PLATELET COUNT 168 x10^3/uL (140-400); RED CELL DISTRIBUTION WIDTH 13.9 % (11.5-14.5); WHITE BLOOD COUNT 10.8 x10^3/uL (4.0-11.0)
[2021-04-29 10:27] LABS: CALCIUM 8.4 mg/dL (8.5-10.1); CREATININE 0.9 mg/dL (0.7-1.3); GFR 90.1; POTASSIUM 4.4 mmol/L (3.5-5.1)
--- NOTE | 2021-04-29 13:02 | PDOC ---
[facility] PROGRESS NOTE Date of Service DOS: DATE: 04/29/21 TIME: 12:52 Chief Complaint Chief Complaint CC: COVID-19 viral pneumonia Acute hypoxemic respiratory failure Morbid obesity History of Present Illness History of Present Illness 04/26/2021 Patient seen and examined in the ICU He is on BiPAP with as needed Vapotherm Has IV remdesivir hanging Discussed with RN Chart reviewed He appears critically ill 04/27/21: Patient was seen and examined in the ICU today. Afebrile, morbidly obese patient. Currently on BiPAP 18/10. O2 saturation while examined was 100%. Discussed with RN who said patient stated he preferred to be on BiPAP over non- rebreather or Vapotherm. His blood sugar was high today and he was given insulin to bring that down. Patient also has history of anxiety so has been given Xanax. Patient complains of upper back pain so has a Lidocaine patch which he says has been working well for that pain. Chart reviewed. 04/28/21: Patient was seen and examined in the ICU. Currently on BiPAP 20/10 with 100% FiO2. His O2 sat was at 99% while being examined. Peralta to bedside in place. Discussed with RN. Chart reviewed. 04/29/21: Patient seen and examined in the ICU. He is currently on BiPAP 20/10 with 100% FiO2. While being examined, the patient had a 97% O2 sat. Peralta to bedside present. Discussed with RN. Chart reviewed. Vitals/I&O Vitals/I&O: Vital Signs Date Time Temp Pulse Resp B/P (MAP) Pulse Ox O2 Delivery O2 Flow Rate FiO2 04/29/21 12:04 99.8 92 32 138/76 (96) 96 BiPAP/CPAP 99.8 04/28/21 18:00 15.0 I & O 04/28/21 04/28/21 04/29/21 15:00 23:00 07:00 Intake Total 290 ml 430 ml Output Total 650 ml 600 ml 475 ml Balance -360 ml -170 ml -475 ml Physical Exam General: Oriented X3, severe distress Heart: Other (Tachycardic) Abdomen: No tenderness Extremities: No clubbing Skin: No rashes Labs Labs: Laboratory Tests Test 04/28/21 17:00 04/28/21 19:50 04/29/21 10:00 04/29/21 12:06 Glucose (Fingerstick) 252 mg/dL (70-99) 302 mg/dL (70-99) 222 mg/dL (70-99) White Blood Count 10.8 x10^3/uL (4.0-11.0) Red Blood Count 4.80 x10^6/uL (4.30-5.70) Hemoglobin 14.1 g/dL (13.0-17.5) Hematocrit 42.9 % (39.0-53.0) Mean Corpuscular Volume 89 fL (79-100) Mean Corpuscular Hemoglobin 30 pg (25-35) Mean Corpuscular Hemoglobin Concent 33 g/dL (31-37) Red Cell Distribution Width 13.9 % (11.5-14.5) Platelet Count 168 x10^3/uL (140-400) Neutrophils (%) (Auto) 93 % (31-73) Lymphocytes (%) (Auto) 3 % (24-48) Monocytes (%) (Auto) 4 % (0-9) Eosinophils (%) (Auto) 0 % (0-3) Basophils (%) (Auto) 0 % (0-3) Neutrophils # (Auto) 10.0 x10^3/uL (1.8-7.7) Lymphocytes # (Auto) 0.3 x10^3/uL (1.0-4.8) Monocytes # (Auto) 0.5 x10^3/uL (0.0-1.1) Eosinophils # (Auto) 0.0 x10^3/uL (0.0-0.7) Basophils # (Auto) 0.0 x10^3/uL (0.0-0.2) Sodium Level 139 mmol/L (136-145) Potassium Level 4.4 mmol/L (3.5-5.1) Chloride Level 103 mmol/L (98-107) Carbon Dioxide Level 28 mmol/L (21-32) Anion Gap 8 (6-14) Blood Urea Nitrogen 21 mg/dL (8-26) Creatinine 0.9 mg/dL (0.7-1.3) Estimated GFR (Cockcroft-Gault) 90.1 Glucose Level 172 mg/dL (70-99) Calcium Level 8.4 mg/dL (8.5-10.1) Review of Systems Review of Systems: GI: no nausea. no vomiting. Eyes: no changes in vision. no blurry vision. Assessment and Plan Assessmemt and Plan COVID-19 viral pneumonia Acute hypoxemic respiratory failure Morbid obesity Plan: 1. ICU monitoring 2. Continue IV antibiotics (Doxycycline) 3. Covid protocol (currently on Aspirin, Multivitamin, Robitussin Ac, Dexamethasone. Remdesivir completed on 04/28/21) 4. Titrate down O2 requirements 5. DVT prophylaxis (Lovenox 40mg SQ q 24hr) 6. Home meds 7. Full code 8. Appreciate subspecialist input 9. Prognosis guarded CC time 32 minutes Comment Review of Relevant I have reviewed the following items jeanne (where applicable) has been applied. Medications: Current Medications Medications (Trade) Dose Ordered Sig/Berna Route PRN Reason Start Time Stop Time Status Last Admin Dose Admin Enoxaparin Sodium (Lovenox 40mg Syringe) 40 mg DAILY SQ 04/29/21 09:00 04/29/21 08:58 Justifications for Admission Other Justification MITCHELL FAUST III DO Apr 29, 2021 13:02
[2021-04-29] MEDS: AA 4.25 %/CALCIUM/LYTES/D5W 1,000 ML IV SCH (15:50)
--- NOTE | 2021-04-29 16:28 | NUR ---
SS following up with discharge planning. SS reviewed pt chart and discussed with pt RN. Pt is currently on the BIPAP at 100%. COVID19 positive. Pt on Clinimix, IV Doxycycline, and IV Decadron. Self pay. Med Assist following. SS will continue to follow for discharge planning.
[2021-04-29] MEDS: PATCH REMOVAL. MC SCH (21:00)
[2021-04-29] MEDS: guaiFENesin/CODEINE 100mg/10mg 5 ML LIQUID PO PRN (21:11)
[2021-04-30] VITALS (21 sets, daily range): BP systolic 123–185; BP diastolic 59–93
[2021-04-30] MEDS: AA 4.25 %/CALCIUM/LYTES/D5W 1,000 ML IV SCH ×2 (04:42→18:18)
[2021-04-30] MEDS: guaiFENesin/CODEINE 100mg/10mg 5 ML LIQUID PO PRN (04:52)
[2021-04-30 05:36] LABS: BASO % 0 % (0-3); EOS # 0.1 x10^3/uL (0.0-0.7); EOS % 1 % (0-3); HEMATOCRIT 42.4 % (39.0-53.0); HEMOGLOBIN 14.1 g/dL (13.0-17.5); LYMPH # 0.4 x10^3/uL (1.0-4.8); LYMPH % 4 % (24-48); MEAN CORPUSCULAR HEMOGLOBIN 29 pg (25-35); MEAN CORPUSCULAR HGB CONC 33 g/dL (31-37); MEAN CORPUSCULAR VOLUME 88 fL (79-100); MONO # 0.3 x10^3/uL (0.0-1.1); MONO % 3 % (0-9); NEUT # 8.8 x10^3/uL (1.8-7.7); NEUT % 92 % (31-73); PLATELET COUNT 177 x10^3/uL (140-400); RED BLOOD COUNT 4.81 x10^6/uL (4.30-5.70); RED CELL DISTRIBUTION WIDTH 14.2 % (11.5-14.5); WHITE BLOOD COUNT 9.5 x10^3/uL (4.0-11.0)
[2021-04-30 05:44] LABS: CALCIUM 8.2 mg/dL (8.5-10.1); CREATININE 0.8 mg/dL (0.7-1.3); GFR 103.2; POTASSIUM 4.3 mmol/L (3.5-5.1)
[2021-04-30] MEDS: LIDOCAINE (700MG/PATCH) PATCH. TD SCH (09:00)
--- NOTE | 2021-04-30 10:12 | PDOC ---
PULMONARY PROGRESS NOTES DATE: 04/30/21 TIME: 10:11 Subjective Patient appears comfortable on BiPAP, 100% FiO2. Vitals Vital Signs Date Time Temp Pulse Resp B/P (MAP) Pulse Ox O2 Delivery O2 Flow Rate FiO2 04/30/21 08:30 93 BiPAP/CPAP 04/30/21 07:18 95 34 149/91 (110) 04/30/21 04:00 97.6 97.6 Comments Patient is seen doing the COVID-19 viral pandemic, no paroxysmal breathing pattern, minimal edema. Labs Laboratory Tests Test 04/28/21 11:55 04/28/21 17:00 04/28/21 19:50 04/29/21 10:00 Glucose (Fingerstick) 205 mg/dL (70-99) 252 mg/dL (70-99) 302 mg/dL (70-99) White Blood Count 10.8 x10^3/uL (4.0-11.0) Red Blood Count 4.80 x10^6/uL (4.30-5.70) Hemoglobin 14.1 g/dL (13.0-17.5) Hematocrit 42.9 % (39.0-53.0) Mean Corpuscular Volume 89 fL (79-100) Mean Corpuscular Hemoglobin 30 pg (25-35) Mean Corpuscular Hemoglobin Concent 33 g/dL (31-37) Red Cell Distribution Width 13.9 % (11.5-14.5) Platelet Count 168 x10^3/uL (140-400) Neutrophils (%) (Auto) 93 % (31-73) Lymphocytes (%) (Auto) 3 % (24-48) Monocytes (%) (Auto) 4 % (0-9) Eosinophils (%) (Auto) 0 % (0-3) Basophils (%) (Auto) 0 % (0-3) Neutrophils # (Auto) 10.0 x10^3/uL (1.8-7.7) Lymphocytes # (Auto) 0.3 x10^3/uL (1.0-4.8) Monocytes # (Auto) 0.5 x10^3/uL (0.0-1.1) Eosinophils # (Auto) 0.0 x10^3/uL (0.0-0.7) Basophils # (Auto) 0.0 x10^3/uL (0.0-0.2) Sodium Level 139 mmol/L (136-145) Potassium Level 4.4 mmol/L (3.5-5.1) Chloride Level 103 mmol/L (98-107) Carbon Dioxide Level 28 mmol/L (21-32) Anion Gap 8 (6-14) Blood Urea Nitrogen 21 mg/dL (8-26) Creatinine 0.9 mg/dL (0.7-1.3) Estimated GFR (Cockcroft-Gault) 90.1 Glucose Level 172 mg/dL (70-99) Calcium Level 8.4 mg/dL (8.5-10.1) Test 04/29/21 12:06 04/29/21 21:40 04/30/21 05:00 Glucose (Fingerstick) 222 mg/dL (70-99) 205 mg/dL (70-99) White Blood Count 9.5 x10^3/uL (4.0-11.0) Red Blood Count 4.81 x10^6/uL (4.30-5.70) Hemoglobin 14.1 g/dL (13.0-17.5) Hematocrit 42.4 % (39.0-53.0) Mean Corpuscular Volume 88 fL (79-100) Mean Corpuscular Hemoglobin 29 pg (25-35) Mean Corpuscular Hemoglobin Concent 33 g/dL (31-37) Red Cell Distribution Width 14.2 % (11.5-14.5) Platelet Count 177 x10^3/uL (140-400) Neutrophils (%) (Auto) 92 % (31-73) Lymphocytes (%) (Auto) 4 % (24-48) Monocytes (%) (Auto) 3 % (0-9) Eosinophils (%) (Auto) 1 % (0-3) Basophils (%) (Auto) 0 % (0-3) Neutrophils # (Auto) 8.8 x10^3/uL (1.8-7.7) Lymphocytes # (Auto) 0.4 x10^3/uL (1.0-4.8) Monocytes # (Auto) 0.3 x10^3/uL (0.0-1.1) Eosinophils # (Auto) 0.1 x10^3/uL (0.0-0.7) Basophils # (Auto) 0.0 x10^3/uL (0.0-0.2) Sodium Level 137 mmol/L (136-145) Potassium Level 4.3 mmol/L (3.5-5.1) Chloride Level 101 mmol/L (98-107) Carbon Dioxide Level 27 mmol/L (21-32) Anion Gap 9 (6-14) Blood Urea Nitrogen 22 mg/dL (8-26) Creatinine 0.8 mg/dL (0.7-1.3) Estimated GFR (Cockcroft-Gault) 103.2 Glucose Level 187 mg/dL (70-99) Calcium Level 8.2 mg/dL (8.5-10.1) Laboratory Tests Test 04/29/21 12:06 04/29/21 21:40 04/30/21 05:00 Glucose (Fingerstick) 222 mg/dL (70-99) 205 mg/dL (70-99) White Blood Count 9.5 x10^3/uL (4.0-11.0) Red Blood Count 4.81 x10^6/uL (4.30-5.70) Hemoglobin 14.1 g/dL (13.0-17.5) Hematocrit 42.4 % (39.0-53.0) Mean Corpuscular Volume 88 fL (79-100) Mean Corpuscular Hemoglobin 29 pg (25-35) Mean Corpuscular Hemoglobin Concent 33 g/dL (31-37) Red Cell Distribution Width 14.2 % (11.5-14.5) Platelet Count 177 x10^3/uL (140-400) Neutrophils (%) (Auto) 92 % (31-73) Lymphocytes (%) (Auto) 4 % (24-48) Monocytes (%) (Auto) 3 % (0-9) Eosinophils (%) (Auto) 1 % (0-3) Basophils (%) (Auto) 0 % (0-3) Neutrophils # (Auto) 8.8 x10^3/uL (1.8-7.7) Lymphocytes # (Auto) 0.4 x10^3/uL (1.0-4.8) Monocytes # (Auto) 0.3 x10^3/uL (0.0-1.1) Eosinophils # (Auto) 0.1 x10^3/uL (0.0-0.7) Basophils # (Auto) 0.0 x10^3/uL (0.0-0.2) Sodium Level 137 mmol/L (136-145) Potassium Level 4.3 mmol/L (3.5-5.1) Chloride Level 101 mmol/L (98-107) Carbon Dioxide Level 27 mmol/L (21-32) Anion Gap 9 (6-14) Blood Urea Nitrogen 22 mg/dL (8-26) Creatinine 0.8 mg/dL (0.7-1.3) Estimated GFR (Cockcroft-Gault) 103.2 Glucose Level 187 mg/dL (70-99) Calcium Level 8.2 mg/dL (8.5-10.1) Comments Chest x-ray reviewed 04/25/2021. Diffuse bilateral interstitial infiltrates Impression . IMPRESSION: 1. Acute hypoxemic respiratory failure secondary to COVID-19 viral pneumonia. 2. COVID-19 viral pneumonia, acute respiratory distress syndrome. 3. Morbid obesity. Plan . Updated 04/30 Appears to be holding his own Continue BiPAP, wean FiO2 to 95%. We will try 100% Vapotherm in the next 24 hours Status post remdesivir, steroids for total of 10 days. Nutritional support DVT prophylaxis adjusted dosage Discussed with RN and respiratory therapist. Updated 04/29 Appears to be holding his own Continue BiPAP, wean FiO2 to 95%. Status post remdesivir, steroids for total of 10 days. Nutritional support DVT prophylaxis adjusted dosage Discussed with RN and respiratory therapist. Updated 04/28 Appears to be holding his own Continue BiPAP Remdesivir, steroids Nutritional support DVT prophylaxis adjusted dosage Discontinue Rocephin updated 04/27 Patient continues to be okay with BiPAP Remdesivir Steroids Nutritional support updated 04/26 Patient appears to be doing well on BiPAP Remdesivir DVT GI prophylaxis Nutritional support Steroid ANKUR ROMEO MD Apr 30, 2021 10:12
[2021-04-30] MEDS: MULTIVITAMIN with MINERAL TABLET. PO SCH (10:41)
[2021-04-30] MEDS: ENOXAPARIN 40 MG/0.4 ML SYRINGE. SQ SCH (10:41)
[2021-04-30] MEDS: DEXAMETHASONE SOD PHOS 4 MG/ML VIAL IVP SCH (10:41)
[2021-04-30] MEDS: LACTOBACILLUS RHAMNOSUS GG 1 CAPSULE. PO SCH ×2 (10:41→20:33)
[2021-04-30] MEDS: ASPIRIN CHEWABLE 81 MG TABLET. PO SCH (10:43)
[2021-04-30] MEDS: DOXYCYCLINE HYCLATE 100 MG in IV DEXTROSE 5% 100ML 100 ML IV SCH ×2 (10:44→20:57)
[2021-04-30] MEDS: ACETAMINOPHEN 325 MG TABLET. PO PRN (11:11)
[2021-04-30] MEDS: INSULIN LISPRO 300 UNITS/3 ML VIAL. SQ SCH ×2 (11:12→18:00)
--- NOTE | 2021-04-30 11:26 | PDOC ---
[facility] PROGRESS NOTE Date of Service DOS: DATE: 04/30/21 TIME: : Chief Complaint Chief Complaint CC: COVID-19 viral pneumonia Acute hypoxemic respiratory failure Morbid obesity History of Present Illness History of Present Illness 04/26/2021 Patient seen and examined in the ICU He is on BiPAP with as needed Vapotherm Has IV remdesivir hanging Discussed with RN Chart reviewed He appears critically ill 04/27/21: Patient was seen and examined in the ICU today. Afebrile, morbidly obese patient. Currently on BiPAP 18/10. O2 saturation while examined was 100%. Discussed with RN who said patient stated he preferred to be on BiPAP over non- rebreather or Vapotherm. His blood sugar was high today and he was given insulin to bring that down. Patient also has history of anxiety so has been given Xanax. Patient complains of upper back pain so has a Lidocaine patch which he says has been working well for that pain. Chart reviewed. 04/28/21: Patient was seen and examined in the ICU. Currently on BiPAP 20/10 with 100% FiO2. His O2 sat was at 99% while being examined. Peralta to bedside in place. Discussed with RN. Chart reviewed. 04/29/21: Patient seen and examined in the ICU. He is currently on BiPAP 20/10 with 100% FiO2. While being examined, the patient had a 97% O2 sat. Peralta to bedside present. Discussed with RN. Chart reviewed. 04/30/21: Patient was seen and examined in the ICU today. Resting with NAD. He is on BiPAP 20/10. FiO2 is at 100%. Rate is 12. Current O2 sat is at 100%. Patient on Clinimix. Peralta to bedside in place. Discussed with RN. Chart reviewed. Vitals/I&O Vitals/I&O: Vital Signs Date Time Temp Pulse Resp B/P (MAP) Pulse Ox O2 Delivery O2 Flow Rate FiO2 04/30/21 11:06 100.7 104 38 150/90 (110) 90 BiPAP/CPAP 100.7 I & O 04/29/21 04/29/21 04/30/21 15:00 23:00 07:00 Intake Total 100 ml 384 ml 250 ml Output Total 550 ml 725 ml 425 ml Balance -450 ml -341 ml -175 ml Physical Exam General: Oriented X3, severe distress Heart: Other (Tachycardic) Abdomen: No tenderness Extremities: No clubbing Skin: No rashes Labs Labs: Laboratory Tests Test 04/29/21 12:06 04/29/21 21:40 04/30/21 05:00 Glucose (Fingerstick) 222 mg/dL (70-99) 205 mg/dL (70-99) White Blood Count 9.5 x10^3/uL (4.0-11.0) Red Blood Count 4.81 x10^6/uL (4.30-5.70) Hemoglobin 14.1 g/dL (13.0-17.5) Hematocrit 42.4 % (39.0-53.0) Mean Corpuscular Volume 88 fL (79-100) Mean Corpuscular Hemoglobin 29 pg (25-35) Mean Corpuscular Hemoglobin Concent 33 g/dL (31-37) Red Cell Distribution Width 14.2 % (11.5-14.5) Platelet Count 177 x10^3/uL (140-400) Neutrophils (%) (Auto) 92 % (31-73) Lymphocytes (%) (Auto) 4 % (24-48) Monocytes (%) (Auto) 3 % (0-9) Eosinophils (%) (Auto) 1 % (0-3) Basophils (%) (Auto) 0 % (0-3) Neutrophils # (Auto) 8.8 x10^3/uL (1.8-7.7) Lymphocytes # (Auto) 0.4 x10^3/uL (1.0-4.8) Monocytes # (Auto) 0.3 x10^3/uL (0.0-1.1) Eosinophils # (Auto) 0.1 x10^3/uL (0.0-0.7) Basophils # (Auto) 0.0 x10^3/uL (0.0-0.2) Sodium Level 137 mmol/L (136-145) Potassium Level 4.3 mmol/L (3.5-5.1) Chloride Level 101 mmol/L (98-107) Carbon Dioxide Level 27 mmol/L (21-32) Anion Gap 9 (6-14) Blood Urea Nitrogen 22 mg/dL (8-26) Creatinine 0.8 mg/dL (0.7-1.3) Estimated GFR (Cockcroft-Gault) 103.2 Glucose Level 187 mg/dL (70-99) Calcium Level 8.2 mg/dL (8.5-10.1) Review of Systems Review of Systems: GI: no nausea. no vomiting. Eyes: no changes in vision. no blurry vision. Assessment and Plan Assessmemt and Plan COVID-19 viral pneumonia Acute hypoxemic respiratory failure Morbid obesity Plan: 1. ICU monitoring 2. Continue IV antibiotics (Doxycycline) 3. Covid protocol (currently on Aspirin, Multivitamin, Robitussin Ac, Dexamethasone. Remdesivir completed on 04/28/21) 4. Trying to titrate down O2 requirements 5. Continue DVT prophylaxis (Lovenox 40mg SQ q 24hr) 6. Full code 7. Appreciate subspecialist input 8. Prognosis guarded CC time 31 minutes Comment Review of Relevant I have reviewed the following items jeanne (where applicable) has been applied. Medications: Current Medications Medications (Trade) Dose Ordered Sig/Berna Route PRN Reason Start Time Stop Time Status Last Admin Dose Admin Amino Acids/ Electrolytes/ Dextrose 1,000 ml @ 80 mls/hr [id number] IV 04/29/21 16:00 04/30/21 04:42 Acetaminophen (Tylenol) 650 mg PRN Q6HRS PRN PO MILD PAIN / TEMP > 100.3'F 04/30/21 11:15 04/30/21 11:11 Justifications for Admission Other Justification MITCHELL FAUST III DO Apr 30, 2021 11:26
[2021-04-30 16:49] LABS: BASE EXCESS ABG 1 mmol/L (-3-3); HCO3 ABG 25 mmol/L (21-28); PCO2 ABG 37 mmHg (35-46); PO2 ABG 53 mmHg (75-108); SAT O2 ABG 89 % (92-99)
[2021-04-30 16:50] LABS: FIO2 ABG 100
--- NOTE | 2021-04-30 18:34 | NUR ---
Patient oxygen requirements are at 100%, his sats are high70's-mid 80's, RR 30-40/min. The patient was educated on life support and he agreed to be placed on life support if need arises. ABG was obtained and this RN called Dr. Vargas with the results. Dr. Vargas's order is to not intubate at this time and decrease the EPAP from 12 to 6. Will continue to monitor patient.
[2021-04-30] MEDS: PATCH REMOVAL. MC SCH (20:35)
[2021-05-01] VITALS (24 sets, daily range): BP systolic 85–186; BP diastolic 55–95
[2021-05-01] MEDS: INSULIN LISPRO 300 UNITS/3 ML VIAL. SQ SCH ×4 (00:36→17:55)
[2021-05-01 05:29] LABS: BASO % 0 % (0-3); EOS % 0 % (0-3); HEMATOCRIT 41.2 % (39.0-53.0); HEMOGLOBIN 13.9 g/dL (13.0-17.5); LYMPH # 0.2 x10^3/uL (1.0-4.8); LYMPH % 2 % (24-48); MEAN CORPUSCULAR HEMOGLOBIN 30 pg (25-35); MEAN CORPUSCULAR HGB CONC 34 g/dL (31-37); MEAN CORPUSCULAR VOLUME 89 fL (79-100); MONO # 0.6 x10^3/uL (0.0-1.1); MONO % 6 % (0-9); NEUT # 9.3 x10^3/uL (1.8-7.7); NEUT % 92 % (31-73); PLATELET COUNT 179 x10^3/uL (140-400); RED BLOOD COUNT 4.66 x10^6/uL (4.30-5.70); WHITE BLOOD COUNT 10.1 x10^3/uL (4.0-11.0)
[2021-05-01] MEDS: AA 4.25 %/CALCIUM/LYTES/D5W 1,000 ML IV SCH (05:30)
[2021-05-01 05:42] LABS: CALCIUM 8.7 mg/dL (8.5-10.1); CREATININE 0.9 mg/dL (0.7-1.3); GFR 90.1; POTASSIUM 4.6 mmol/L (3.5-5.1)
[2021-05-01] MEDS: ASPIRIN CHEWABLE 81 MG TABLET. PO SCH (08:00)
[2021-05-01] MEDS: DEXMEDETOMIDINE 400 MCG in IV NORMAL SALINE 100ML 96 ML IV PRN ×4 (08:58→22:48)
[2021-05-01] MEDS: LACTOBACILLUS RHAMNOSUS GG 1 CAPSULE. PO SCH ×2 (09:00→21:40)
[2021-05-01] MEDS: LIDOCAINE (700MG/PATCH) PATCH. TD SCH (09:00)
[2021-05-01] MEDS: MULTIVITAMIN with MINERAL TABLET. PO SCH (09:00)
--- NOTE | 2021-05-01 11:01 | PDOC ---
PULMONARY PROGRESS NOTES DATE: 05/01/21 TIME: 10:59 Subjective Patient remains on BiPAP 100% FiO2. Oxygen level was marginal last night. Currently on Precedex drip Vitals Vital Signs Date Time Temp Pulse Resp B/P (MAP) Pulse Ox O2 Delivery O2 Flow Rate FiO2 05/01/21 10:18 101 27 157/86 (109) 86 BiPAP/CPAP 05/01/21 09:04 99.0 99.0 Comments Patient is seen doing the COVID-19 viral pandemic, no paroxysmal breathing pattern, minimal edema. Labs Laboratory Tests Test 04/29/21 12:06 04/29/21 21:40 04/30/21 05:00 04/30/21 16:31 Glucose (Fingerstick) 222 mg/dL (70-99) 205 mg/dL (70-99) White Blood Count 9.5 x10^3/uL (4.0-11.0) Red Blood Count 4.81 x10^6/uL (4.30-5.70) Hemoglobin 14.1 g/dL (13.0-17.5) Hematocrit 42.4 % (39.0-53.0) Mean Corpuscular Volume 88 fL (79-100) Mean Corpuscular Hemoglobin 29 pg (25-35) Mean Corpuscular Hemoglobin Concent 33 g/dL (31-37) Red Cell Distribution Width 14.2 % (11.5-14.5) Platelet Count 177 x10^3/uL (140-400) Neutrophils (%) (Auto) 92 % (31-73) Lymphocytes (%) (Auto) 4 % (24-48) Monocytes (%) (Auto) 3 % (0-9) Eosinophils (%) (Auto) 1 % (0-3) Basophils (%) (Auto) 0 % (0-3) Neutrophils # (Auto) 8.8 x10^3/uL (1.8-7.7) Lymphocytes # (Auto) 0.4 x10^3/uL (1.0-4.8) Monocytes # (Auto) 0.3 x10^3/uL (0.0-1.1) Eosinophils # (Auto) 0.1 x10^3/uL (0.0-0.7) Basophils # (Auto) 0.0 x10^3/uL (0.0-0.2) Sodium Level 137 mmol/L (136-145) Potassium Level 4.3 mmol/L (3.5-5.1) Chloride Level 101 mmol/L (98-107) Carbon Dioxide Level 27 mmol/L (21-32) Anion Gap 9 (6-14) Blood Urea Nitrogen 22 mg/dL (8-26) Creatinine 0.8 mg/dL (0.7-1.3) Estimated GFR (Cockcroft-Gault) 103.2 Glucose Level 187 mg/dL (70-99) Calcium Level 8.2 mg/dL (8.5-10.1) O2 Saturation 89 % (92-99) Arterial Blood pH 7.45 (7.35-7.45) Arterial Blood pCO2 at Patient Temp 37 mmHg (35-46) Arterial Blood pO2 at Patient Temp 53 mmHg (75-108) Arterial Blood HCO3 25 mmol/L (21-28) Arterial Blood Base Excess 1 mmol/L (-3-3) FiO2 100 Test 05/01/21 00:31 05/01/21 05:00 Glucose (Fingerstick) 228 mg/dL (70-99) White Blood Count 10.1 x10^3/uL (4.0-11.0) Red Blood Count 4.66 x10^6/uL (4.30-5.70) Hemoglobin 13.9 g/dL (13.0-17.5) Hematocrit 41.2 % (39.0-53.0) Mean Corpuscular Volume 89 fL (79-100) Mean Corpuscular Hemoglobin 30 pg (25-35) Mean Corpuscular Hemoglobin Concent 34 g/dL (31-37) Red Cell Distribution Width 14.0 % (11.5-14.5) Platelet Count 179 x10^3/uL (140-400) Neutrophils (%) (Auto) 92 % (31-73) Lymphocytes (%) (Auto) 2 % (24-48) Monocytes (%) (Auto) 6 % (0-9) Eosinophils (%) (Auto) 0 % (0-3) Basophils (%) (Auto) 0 % (0-3) Neutrophils # (Auto) 9.3 x10^3/uL (1.8-7.7) Lymphocytes # (Auto) 0.2 x10^3/uL (1.0-4.8) Monocytes # (Auto) 0.6 x10^3/uL (0.0-1.1) Eosinophils # (Auto) 0.0 x10^3/uL (0.0-0.7) Basophils # (Auto) 0.0 x10^3/uL (0.0-0.2) Sodium Level 136 mmol/L (136-145) Potassium Level 4.6 mmol/L (3.5-5.1) Chloride Level 101 mmol/L (98-107) Carbon Dioxide Level 27 mmol/L (21-32) Anion Gap 8 (6-14) Blood Urea Nitrogen 23 mg/dL (8-26) Creatinine 0.9 mg/dL (0.7-1.3) Estimated GFR (Cockcroft-Gault) 90.1 Glucose Level 182 mg/dL (70-99) Calcium Level 8.7 mg/dL (8.5-10.1) Laboratory Tests Test 04/30/21 16:31 05/01/21 00:31 05/01/21 05:00 O2 Saturation 89 % (92-99) Arterial Blood pH 7.45 (7.35-7.45) Arterial Blood pCO2 at Patient Temp 37 mmHg (35-46) Arterial Blood pO2 at Patient Temp 53 mmHg (75-108) Arterial Blood HCO3 25 mmol/L (21-28) Arterial Blood Base Excess 1 mmol/L (-3-3) FiO2 100 Glucose (Fingerstick) 228 mg/dL (70-99) White Blood Count 10.1 x10^3/uL (4.0-11.0) Red Blood Count 4.66 x10^6/uL (4.30-5.70) Hemoglobin 13.9 g/dL (13.0-17.5) Hematocrit 41.2 % (39.0-53.0) Mean Corpuscular Volume 89 fL (79-100) Mean Corpuscular Hemoglobin 30 pg (25-35) Mean Corpuscular Hemoglobin Concent 34 g/dL (31-37) Red Cell Distribution Width 14.0 % (11.5-14.5) Platelet Count 179 x10^3/uL (140-400) Neutrophils (%) (Auto) 92 % (31-73) Lymphocytes (%) (Auto) 2 % (24-48) Monocytes (%) (Auto) 6 % (0-9) Eosinophils (%) (Auto) 0 % (0-3) Basophils (%) (Auto) 0 % (0-3) Neutrophils # (Auto) 9.3 x10^3/uL (1.8-7.7) Lymphocytes # (Auto) 0.2 x10^3/uL (1.0-4.8) Monocytes # (Auto) 0.6 x10^3/uL (0.0-1.1) Eosinophils # (Auto) 0.0 x10^3/uL (0.0-0.7) Basophils # (Auto) 0.0 x10^3/uL (0.0-0.2) Sodium Level 136 mmol/L (136-145) Potassium Level 4.6 mmol/L (3.5-5.1) Chloride Level 101 mmol/L (98-107) Carbon Dioxide Level 27 mmol/L (21-32) Anion Gap 8 (6-14) Blood Urea Nitrogen 23 mg/dL (8-26) Creatinine 0.9 mg/dL (0.7-1.3) Estimated GFR (Cockcroft-Gault) 90.1 Glucose Level 182 mg/dL (70-99) Calcium Level 8.7 mg/dL (8.5-10.1) Comments Chest x-ray reviewed 04/25/2021. Diffuse bilateral interstitial infiltrates Impression . IMPRESSION: 1. Acute hypoxemic respiratory failure secondary to COVID-19 viral pneumonia. 2. COVID-19 viral pneumonia, acute respiratory distress syndrome. 3. Morbid obesity. Plan . Updated 05/01 Patient's oxygen level is marginal with a PO2 in the mid 50s. Initiated on Precedex drip. Tolerating the BiPAP better. Continue BiPAP, 100% FiO2. Will watch closely for need for intubation. Status post remdesivir, steroids for total of 10 days. Nutritional support DVT prophylaxis adjusted dosage Discussed with RN and respiratory therapist. addend: Patients O2 saturations dropped in 70's with increased WOB. d/w RN. Patient intubated. will follow ABG/ CXR cct 30 min Updated 04/30 Appears to be holding his own Continue BiPAP, wean FiO2 to 95%. We will try 100% Vapotherm in the next 24 hours Status post remdesivir, steroids for total of 10 days. Nutritional support DVT prophylaxis adjusted dosage Discussed with RN and respiratory therapist. Updated 04/29 Appears to be holding his own Continue BiPAP, wean FiO2 to 95%. Status post remdesivir, steroids for total of 10 days. Nutritional support DVT prophylaxis adjusted dosage Discussed with RN and respiratory therapist. Updated 04/28 Appears to be holding his own Continue BiPAP Remdesivir, steroids Nutritional support DVT prophylaxis adjusted dosage Discontinue Rocephin updated 04/27 Patient continues to be okay with BiPAP Remdesivir Steroids Nutritional support updated 04/26 Patient appears to be doing well on BiPAP Remdesivir DVT GI prophylaxis Nutritional support Steroid ANKUR ROMEO MD May 01, 2021 11:01
[2021-05-01] MEDS: DEXAMETHASONE SOD PHOS 4 MG/ML VIAL IVP SCH (11:08)
[2021-05-01] MEDS: DOXYCYCLINE HYCLATE 100 MG in IV DEXTROSE 5% 100ML 100 ML IV SCH ×2 (11:13→21:01)
[2021-05-01] MEDS: ENOXAPARIN 40 MG/0.4 ML SYRINGE. SQ SCH (11:16)
--- NOTE | 2021-05-01 11:22 | PDOC ---
[facility] PROGRESS NOTE Date of Service DOS: DATE: 05/01/21 TIME: 11:20 Chief Complaint Chief Complaint CC: COVID-19 viral pneumonia Acute hypoxemic respiratory failure Morbid obesity History of Present Illness History of Present Illness 04/26/2021 Patient seen and examined in the ICU He is on BiPAP with as needed Vapotherm Has IV remdesivir hanging Discussed with RN Chart reviewed He appears critically ill 04/27/21: Patient was seen and examined in the ICU today. Afebrile, morbidly obese patient. Currently on BiPAP 18/10. O2 saturation while examined was 100%. Discussed with RN who said patient stated he preferred to be on BiPAP over non- rebreather or Vapotherm. His blood sugar was high today and he was given insulin to bring that down. Patient also has history of anxiety so has been given Xanax. Patient complains of upper back pain so has a Lidocaine patch which he says has been working well for that pain. Chart reviewed. 04/28/21: Patient was seen and examined in the ICU. Currently on BiPAP 20/10 with 100% FiO2. His O2 sat was at 99% while being examined. Peralta to bedside in place. Discussed with RN. Chart reviewed. 04/29/21: Patient seen and examined in the ICU. He is currently on BiPAP 20/10 with 100% FiO2. While being examined, the patient had a 97% O2 sat. Peralta to bedside present. Discussed with RN. Chart reviewed. 04/30/21: Patient was seen and examined in the ICU today. Resting with NAD. He is on BiPAP 20/10. FiO2 is at 100%. Rate is 12. Current O2 sat is at 100%. Patient on Clinimix. Peralta to bedside in place. Discussed with RN. Chart reviewed. 05/01/21: Patient seen and examined in the ICU. Currently on BiPAP 20/6 with FiO2 of 100% and rate of 12. O2 sat while being examined was at 88% O2. Peralta to bedside present. Discussed with RN. Chart reviewed. Vitals/I&O Vitals/I&O: Vital Signs Date Time Temp Pulse Resp B/P (MAP) Pulse Ox O2 Delivery O2 Flow Rate FiO2 05/01/21 11:06 93 22 172/95 (120) 88 BiPAP/CPAP 05/01/21 09:04 99.0 99.0 I & O 04/30/21 04/30/21 05/01/21 15:00 23:00 07:00 Intake Total 800 ml 3644.85 ml Output Total 500 ml 960 ml 480 ml Balance -500 ml -160 ml 3164.85 ml Physical Exam General: Oriented X3, severe distress Heart: Other (Tachycardic) Abdomen: No tenderness Extremities: No clubbing Skin: No rashes Labs Labs: Laboratory Tests Test 04/30/21 16:31 05/01/21 00:31 05/01/21 05:00 O2 Saturation 89 % (92-99) Arterial Blood pH 7.45 (7.35-7.45) Arterial Blood pCO2 at Patient Temp 37 mmHg (35-46) Arterial Blood pO2 at Patient Temp 53 mmHg (75-108) Arterial Blood HCO3 25 mmol/L (21-28) Arterial Blood Base Excess 1 mmol/L (-3-3) FiO2 100 Glucose (Fingerstick) 228 mg/dL (70-99) White Blood Count 10.1 x10^3/uL (4.0-11.0) Red Blood Count 4.66 x10^6/uL (4.30-5.70) Hemoglobin 13.9 g/dL (13.0-17.5) Hematocrit 41.2 % (39.0-53.0) Mean Corpuscular Volume 89 fL (79-100) Mean Corpuscular Hemoglobin 30 pg (25-35) Mean Corpuscular Hemoglobin Concent 34 g/dL (31-37) Red Cell Distribution Width 14.0 % (11.5-14.5) Platelet Count 179 x10^3/uL (140-400) Neutrophils (%) (Auto) 92 % (31-73) Lymphocytes (%) (Auto) 2 % (24-48) Monocytes (%) (Auto) 6 % (0-9) Eosinophils (%) (Auto) 0 % (0-3) Basophils (%) (Auto) 0 % (0-3) Neutrophils # (Auto) 9.3 x10^3/uL (1.8-7.7) Lymphocytes # (Auto) 0.2 x10^3/uL (1.0-4.8) Monocytes # (Auto) 0.6 x10^3/uL (0.0-1.1) Eosinophils # (Auto) 0.0 x10^3/uL (0.0-0.7) Basophils # (Auto) 0.0 x10^3/uL (0.0-0.2) Sodium Level 136 mmol/L (136-145) Potassium Level 4.6 mmol/L (3.5-5.1) Chloride Level 101 mmol/L (98-107) Carbon Dioxide Level 27 mmol/L (21-32) Anion Gap 8 (6-14) Blood Urea Nitrogen 23 mg/dL (8-26) Creatinine 0.9 mg/dL (0.7-1.3) Estimated GFR (Cockcroft-Gault) 90.1 Glucose Level 182 mg/dL (70-99) Calcium Level 8.7 mg/dL (8.5-10.1) Review of Systems Review of Systems: GI: no nausea. no vomiting. Eyes: no changes in vision. no blurry vision. Assessment and Plan Assessmemt and Plan COVID-19 viral pneumonia Acute hypoxemic respiratory failure Morbid obesity Plan: 1. ICU monitoring 2. Continue Covid protocol (Doxycycline, Aspirin, Multivitamin, Robitussin Ac, and Dexamethasone. Remdesivir completed on 04/28/21) 3. Titrate down O2 requirements 4. DVT prophylaxis (Lovenox 40mg SQ q 24hr) 5. Full code 6. Appreciate subspecialist input 7. Prognosis guarded CC time 32 minutes Comment Review of Relevant I have reviewed the following items jeanne (where applicable) has been applied. Medications: Current Medications Medications (Trade) Dose Ordered Sig/Berna Route PRN Reason Start Time Stop Time Status Last Admin Dose Admin Insulin Human Lispro (HumaLOG) 0-7 UNITS Q6HRS SQ 04/30/21 18:00 05/01/21 06:25 Dexmedetomidine HCl 400 mcg/ Sodium Chloride 100 ml @ 0 mls/hr CONT PRN IV PER PROTOCOL 05/01/21 08:45 05/01/21 08:58 Justifications for Admission Other Justification MITCHELL FAUST III DO May 01, 2021 11:21
[2021-05-01] MEDS ORDERED: PROPOFOL 100 ML IV ONE (12:43)
[2021-05-01] MEDS ORDERED: SUCCINYLCHOLINE 200 MG/10 ML VIAL. ONE (12:44)
[2021-05-01] MEDS ORDERED: ETOMIDATE 20 MG/10 ML VIAL. IV ONE ×2 (12:44→13:00)
[2021-05-01] MEDS ORDERED: MORPHINE SULFATE 2 MG/ML INJ. IV PRN (12:45)
[2021-05-01] MEDS ORDERED: MORPHINE SULFATE 4 MG/ML INJ. IV PRN (12:45)
[2021-05-01] MEDS ORDERED: fentaNYL PF VIAL 100 MCG/2 ML VIAL IV PRN ×2 (12:45)
[2021-05-01] MEDS ORDERED: PROPOFOL 10 MG/ML (100ML) VIAL. IV ONE ×2 (13:00→13:30)
[2021-05-01] MEDS: MIDAZOLAM 100mg/100ml NS BAG 100 ML IV PRN ×2 (13:15→18:00)
[2021-05-01] MEDS ORDERED: VECURONIUM BOLUS 10 MG VIAL. IV ONE (13:16)
[2021-05-01] MEDS ORDERED: VECURONIUM BOLUS 10 MG VIAL. IV PRN (13:30)
[2021-05-01] MEDS: NORCURON - VECURONIUM 50 MG in IV NORMAL SALINE 50ML 50 ML IV PRN ×3 (13:45→22:47)
[2021-05-01] MEDS ORDERED: SUCCINYLCHOLINE 200 MG/10 ML VIAL. IV ONE (13:45)
--- NOTE | 2021-05-01 14:42 | RAD ---
XR CHEST 1V CLINICAL INDICATIONS: ET tube placement COMPARISON: April 25, 2021. Findings: ET tube is been placed and the tube tip is located 2 cm above the level of the adebayo. Diff use bilateral lung infiltrates are again evident which have significantly improved from the previous study. No pleural effusion or pneumothorax is seen. The heart size, pulmonary vasculature, mediastinu m and both blas are stable. IMPRESSION: Significant improvement of bilateral lung infiltrates. Electronically signed by: Burak Kauffman MD (05/01/2021 2:40 PM) [id number]
--- NOTE | 2021-05-01 15:36 | RAD ---
XR CHEST 1V 2:53 PM. CLINICAL INDICATIONS: Reason: Central line placement COMPARISON: May 01, 2021 performed at 1:15 PM FINDINGS/ IMPRESSION: NG tube remains in place. ET tube tip is seen 1.5 cm above the level of the adebayo. Right IJ central line has been placed and tip is seen within the right atrium. No pneumothorax is seen. Di ffuse bilateral interstitial lung infiltrates or pulmonary edema are again evident. Electronically signed by: Burak Kauffman MD (05/01/2021 3:34 PM) [id number]
[2021-05-01 16:01] LABS: BASE EXCESS ABG -5 mmol/L (-3-3); HCO3 ABG 20 mmol/L (21-28); PCO2 ABG 37 mmHg (35-46); PO2 ABG 63 mmHg (75-108); SAT O2 ABG 91 % (92-99)
[2021-05-01 16:02] LABS: FIO2 ABG 100
[2021-05-01] MEDS: PATCH REMOVAL. MC SCH (21:00)
[2021-05-01] MEDS: FAMOTIDINE 20 MG/2 ML VIAL IVP SCH (21:40)
[2021-05-02] VITALS (24 sets, daily range): BP systolic 101–128; BP diastolic 5–87
[2021-05-02] MEDS: INSULIN LISPRO 300 UNITS/3 ML VIAL. SQ SCH ×4 (00:13→17:15)
[2021-05-02] MEDS: AA 4.25 %/CALCIUM/LYTES/D5W 1,000 ML IV SCH (01:27)
[2021-05-02] MEDS: DEXMEDETOMIDINE 400 MCG in IV NORMAL SALINE 100ML 96 ML IV PRN ×3 (04:23→19:44)
[2021-05-02 05:45] LABS: BASO % 0 % (0-3); EOS % 0 % (0-3); HEMATOCRIT 38.7 % (39.0-53.0); HEMOGLOBIN 12.9 g/dL (13.0-17.5); LYMPH # 0.2 x10^3/uL (1.0-4.8); LYMPH % 4 % (24-48); MEAN CORPUSCULAR HEMOGLOBIN 30 pg (25-35); MEAN CORPUSCULAR HGB CONC 33 g/dL (31-37); MEAN CORPUSCULAR VOLUME 89 fL (79-100); MONO # 0.4 x10^3/uL (0.0-1.1); MONO % 8 % (0-9); NEUT # 5.2 x10^3/uL (1.8-7.7); NEUT % 88 % (31-73); PLATELET COUNT 146 x10^3/uL (140-400); RED BLOOD COUNT 4.34 x10^6/uL (4.30-5.70); RED CELL DISTRIBUTION WIDTH 14.3 % (11.5-14.5); WHITE BLOOD COUNT 5.9 x10^3/uL (4.0-11.0)
[2021-05-02 06:09] LABS: CALCIUM 8.2 mg/dL (8.5-10.1); CREATININE 1.3 mg/dL (0.7-1.3); GFR 58.9; POTASSIUM 5.4 mmol/L (3.5-5.1)
[2021-05-02 09:06] LABS: BASE EXCESS ABG -1 mmol/L (-3-3); HCO3 ABG 24 mmol/L (21-28); PCO2 ABG 39 mmHg (35-46); PO2 ABG 65 mmHg (75-108); SAT O2 ABG 93 % (92-99)
[2021-05-02 09:07] LABS: FIO2 ABG 100
[2021-05-02] MEDS: NORCURON - VECURONIUM 50 MG in IV NORMAL SALINE 50ML 50 ML IV PRN ×3 (09:12→23:05)
[2021-05-02] MEDS: ENOXAPARIN 40 MG/0.4 ML SYRINGE. SQ SCH (09:13)
[2021-05-02] MEDS: MIDAZOLAM 100mg/100ml NS BAG 100 ML IV PRN ×2 (09:13→17:33)
[2021-05-02] MEDS: FAMOTIDINE 20 MG/2 ML VIAL IVP SCH ×2 (09:14→20:33)
[2021-05-02] MEDS: ASPIRIN CHEWABLE 81 MG TABLET. PO SCH (09:14)
[2021-05-02] MEDS: LACTOBACILLUS RHAMNOSUS GG 1 CAPSULE. PO SCH ×2 (09:14→20:33)
[2021-05-02] MEDS: DEXAMETHASONE SOD PHOS 4 MG/ML VIAL IVP SCH (09:14)
[2021-05-02] MEDS: ACETAMINOPHEN 325 MG TABLET. PO PRN (09:15)
[2021-05-02] MEDS: DOXYCYCLINE HYCLATE 100 MG in IV DEXTROSE 5% 100ML 100 ML IV SCH ×2 (10:05→21:08)
--- NOTE | 2021-05-02 10:52 | PDOC ---
[facility] PROGRESS NOTE Date of Service DOS: DATE: 05/02/21 TIME: 10:49 Chief Complaint Chief Complaint CC: COVID-19 viral pneumonia Acute hypoxemic respiratory failure Morbid obesity History of Present Illness History of Present Illness 04/26/2021 Patient seen and examined in the ICU He is on BiPAP with as needed Vapotherm Has IV remdesivir hanging Discussed with RN Chart reviewed He appears critically ill 04/27/21: Patient was seen and examined in the ICU today. Afebrile, morbidly obese patient. Currently on BiPAP 18/10. O2 saturation while examined was 100%. Discussed with RN who said patient stated he preferred to be on BiPAP over non- rebreather or Vapotherm. His blood sugar was high today and he was given insulin to bring that down. Patient also has history of anxiety so has been given Xanax. Patient complains of upper back pain so has a Lidocaine patch which he says has been working well for that pain. Chart reviewed. 04/28/21: Patient was seen and examined in the ICU. Currently on BiPAP 20/10 with 100% FiO2. His O2 sat was at 99% while being examined. Peralta to bedside in place. Discussed with RN. Chart reviewed. 04/29/21: Patient seen and examined in the ICU. He is currently on BiPAP 20/10 with 100% FiO2. While being examined, the patient had a 97% O2 sat. Peralta to bedside present. Discussed with RN. Chart reviewed. 04/30/21: Patient was seen and examined in the ICU today. Resting with NAD. He is on BiPAP 20/10. FiO2 is at 100%. Rate is 12. Current O2 sat is at 100%. Patient on Clinimix. Peralta to bedside in place. Discussed with RN. Chart reviewed. 05/01/21: Patient seen and examined in the ICU. Currently on BiPAP 20/6 with FiO2 of 100% and rate of 12. O2 sat while being examined was at 88% O2. Peralta to bedside present. Discussed with RN. Chart reviewed. 05/02/2021: Patient seen in the ICU. Febrile overnight, T-max 100.9 F. On vent with FiO2 100%, PEEP 14. Completed remdesivir. Continue steroids to complete 10-day course with slow taper (last day should be 05/05/2021). Continue empiric antibiotics and supportive care. Critical care time 30 minutes spent reviewing charts, reviewing labs, reviewing imaging, discussion with RN. Vitals/I&O Vitals/I&O: Vital Signs Date Time Temp Pulse Resp B/P (MAP) Pulse Ox O2 Delivery O2 Flow Rate FiO2 05/02/21 10:11 99.4 78 28 105/75 (85) 93 Ventilator 99.4 05/02/21 03:44 15.0 I & O 05/01/21 05/01/21 05/02/21 15:00 23:00 07:00 Intake Total 100 ml 856 ml 1513.55 ml Output Total 650 ml 270 ml 610 ml Balance -550 ml 586 ml 903.55 ml Physical Exam General: mild distress Heart: Regular rate Lungs: Other (Intubated, coarse breath sounds bilaterally) Abdomen: No tenderness Extremities: No clubbing, No cyanosis Skin: No rashes, No breakdown Labs Labs: Laboratory Tests Test 05/01/21 15:25 05/01/21 17:53 05/01/21 23:58 05/02/21 05:15 O2 Saturation 91 % (92-99) Arterial Blood pH 7.35 (7.35-7.45) Arterial Blood pCO2 at Patient Temp 37 mmHg (35-46) Arterial Blood pO2 at Patient Temp 63 mmHg (75-108) Arterial Blood HCO3 20 mmol/L (21-28) Arterial Blood Base Excess -5 mmol/L (-3-3) FiO2 100 Glucose (Fingerstick) 244 mg/dL (70-99) 276 mg/dL (70-99) White Blood Count 5.9 x10^3/uL (4.0-11.0) Red Blood Count 4.34 x10^6/uL (4.30-5.70) Hemoglobin 12.9 g/dL (13.0-17.5) Hematocrit 38.7 % (39.0-53.0) Mean Corpuscular Volume 89 fL (79-100) Mean Corpuscular Hemoglobin 30 pg (25-35) Mean Corpuscular Hemoglobin Concent 33 g/dL (31-37) Red Cell Distribution Width 14.3 % (11.5-14.5) Platelet Count 146 x10^3/uL (140-400) Neutrophils (%) (Auto) 88 % (31-73) Lymphocytes (%) (Auto) 4 % (24-48) Monocytes (%) (Auto) 8 % (0-9) Eosinophils (%) (Auto) 0 % (0-3) Basophils (%) (Auto) 0 % (0-3) Neutrophils # (Auto) 5.2 x10^3/uL (1.8-7.7) Lymphocytes # (Auto) 0.2 x10^3/uL (1.0-4.8) Monocytes # (Auto) 0.4 x10^3/uL (0.0-1.1) Eosinophils # (Auto) 0.0 x10^3/uL (0.0-0.7) Basophils # (Auto) 0.0 x10^3/uL (0.0-0.2) Sodium Level 134 mmol/L (136-145) Potassium Level 5.4 mmol/L (3.5-5.1) Chloride Level 101 mmol/L (98-107) Carbon Dioxide Level 27 mmol/L (21-32) Anion Gap 6 (6-14) Blood Urea Nitrogen 46 mg/dL (8-26) Creatinine 1.3 mg/dL (0.7-1.3) Estimated GFR (Cockcroft-Gault) 58.9 Glucose Level 273 mg/dL (70-99) Calcium Level 8.2 mg/dL (8.5-10.1) Test 05/02/21 08:00 O2 Saturation 93 % (92-99) Arterial Blood pH 7.40 (7.35-7.45) Arterial Blood pCO2 at Patient Temp 39 mmHg (35-46) Arterial Blood pO2 at Patient Temp 65 mmHg (75-108) Arterial Blood HCO3 24 mmol/L (21-28) Arterial Blood Base Excess -1 mmol/L (-3-3) FiO2 100 Comment Review of Relevant I have reviewed the following items jeanne (where applicable) has been applied. Medications: Current Medications Medications (Trade) Dose Ordered Sig/Berna Route PRN Reason Start Time Stop Time Status Last Admin Dose Admin Fentanyl Citrate 30 ml @ 0 mls/hr CONT PRN IV SEE PROTOCOL 05/01/21 12:45 05/02/21 03:44 Midazolam HCl 100 ml @ 0 mls/hr CONT PRN IV SEE PROTOCOL 05/01/21 12:45 05/02/21 09:13 Succinylcholine Chloride (Anectine) 140 mg 1X ONCE IV 05/01/21 13:45 05/01/21 13:46 DC 05/01/21 13:20 Propofol (Diprivan) 200 mg 1X ONCE IV 05/01/21 13:30 05/01/21 13:31 DC 05/01/21 13:19 Vecuronium Quincy (Norcuron Bolus) 6 mg PRN Q2HR PRN IV VENTILATOR COMPLIANCE 05/01/21 13:30 05/01/21 13:21 Vecuronium Quincy 50 mg/ Sodium Chloride 50 ml @ 6.456 mls/ hr CONT PRN IV SEE I/O RECORD 05/01/21 13:30 05/02/21 09:12 Famotidine (Pepcid Vial) 20 mg BID IVP 05/01/21 21:00 05/02/21 09:14 Justifications for Admission Other Justification LUH JANE MD May 02, 2021 10:51
--- NOTE | 2021-05-02 10:55 | PDOC ---
PULMONARY PROGRESS NOTES DATE: 05/02/21 TIME: 10:47 Subjective Patient intubated 05/01/2021 due to worsening hypoxia despite 100% FiO2 via BiPAP. Currently on pressure control mode, inverse i.e. ratio and 14 of PEEP Vitals Vital Signs Date Time Temp Pulse Resp B/P (MAP) Pulse Ox O2 Delivery O2 Flow Rate FiO2 05/02/21 10:11 99.4 78 28 105/75 (85) 93 Ventilator 99.4 05/02/21 03:44 15.0 Comments Patient is seen doing the COVID-19 viral pandemic, no paroxysmal breathing pattern, minimal edema. Labs Laboratory Tests Test 04/30/21 16:31 05/01/21 00:31 05/01/21 05:00 05/01/21 15:25 O2 Saturation 89 % (92-99) 91 % (92-99) Arterial Blood pH 7.45 (7.35-7.45) 7.35 (7.35-7.45) Arterial Blood pCO2 at Patient Temp 37 mmHg (35-46) 37 mmHg (35-46) Arterial Blood pO2 at Patient Temp 53 mmHg (75-108) 63 mmHg (75-108) Arterial Blood HCO3 25 mmol/L (21-28) 20 mmol/L (21-28) Arterial Blood Base Excess 1 mmol/L (-3-3) -5 mmol/L (-3-3) FiO2 100 100 Glucose (Fingerstick) 228 mg/dL (70-99) White Blood Count 10.1 x10^3/uL (4.0-11.0) Red Blood Count 4.66 x10^6/uL (4.30-5.70) Hemoglobin 13.9 g/dL (13.0-17.5) Hematocrit 41.2 % (39.0-53.0) Mean Corpuscular Volume 89 fL (79-100) Mean Corpuscular Hemoglobin 30 pg (25-35) Mean Corpuscular Hemoglobin Concent 34 g/dL (31-37) Red Cell Distribution Width 14.0 % (11.5-14.5) Platelet Count 179 x10^3/uL (140-400) Neutrophils (%) (Auto) 92 % (31-73) Lymphocytes (%) (Auto) 2 % (24-48) Monocytes (%) (Auto) 6 % (0-9) Eosinophils (%) (Auto) 0 % (0-3) Basophils (%) (Auto) 0 % (0-3) Neutrophils # (Auto) 9.3 x10^3/uL (1.8-7.7) Lymphocytes # (Auto) 0.2 x10^3/uL (1.0-4.8) Monocytes # (Auto) 0.6 x10^3/uL (0.0-1.1) Eosinophils # (Auto) 0.0 x10^3/uL (0.0-0.7) Basophils # (Auto) 0.0 x10^3/uL (0.0-0.2) Sodium Level 136 mmol/L (136-145) Potassium Level 4.6 mmol/L (3.5-5.1) Chloride Level 101 mmol/L (98-107) Carbon Dioxide Level 27 mmol/L (21-32) Anion Gap 8 (6-14) Blood Urea Nitrogen 23 mg/dL (8-26) Creatinine 0.9 mg/dL (0.7-1.3) Estimated GFR (Cockcroft-Gault) 90.1 Glucose Level 182 mg/dL (70-99) Calcium Level 8.7 mg/dL (8.5-10.1) Test 05/01/21 17:53 05/01/21 23:58 05/02/21 05:15 05/02/21 08:00 Glucose (Fingerstick) 244 mg/dL (70-99) 276 mg/dL (70-99) White Blood Count 5.9 x10^3/uL (4.0-11.0) Red Blood Count 4.34 x10^6/uL (4.30-5.70) Hemoglobin 12.9 g/dL (13.0-17.5) Hematocrit 38.7 % (39.0-53.0) Mean Corpuscular Volume 89 fL (79-100) Mean Corpuscular Hemoglobin 30 pg (25-35) Mean Corpuscular Hemoglobin Concent 33 g/dL (31-37) Red Cell Distribution Width 14.3 % (11.5-14.5) Platelet Count 146 x10^3/uL (140-400) Neutrophils (%) (Auto) 88 % (31-73) Lymphocytes (%) (Auto) 4 % (24-48) Monocytes (%) (Auto) 8 % (0-9) Eosinophils (%) (Auto) 0 % (0-3) Basophils (%) (Auto) 0 % (0-3) Neutrophils # (Auto) 5.2 x10^3/uL (1.8-7.7) Lymphocytes # (Auto) 0.2 x10^3/uL (1.0-4.8) Monocytes # (Auto) 0.4 x10^3/uL (0.0-1.1) Eosinophils # (Auto) 0.0 x10^3/uL (0.0-0.7) Basophils # (Auto) 0.0 x10^3/uL (0.0-0.2) Sodium Level 134 mmol/L (136-145) Potassium Level 5.4 mmol/L (3.5-5.1) Chloride Level 101 mmol/L (98-107) Carbon Dioxide Level 27 mmol/L (21-32) Anion Gap 6 (6-14) Blood Urea Nitrogen 46 mg/dL (8-26) Creatinine 1.3 mg/dL (0.7-1.3) Estimated GFR (Cockcroft-Gault) 58.9 Glucose Level 273 mg/dL (70-99) Calcium Level 8.2 mg/dL (8.5-10.1) O2 Saturation 93 % (92-99) Arterial Blood pH 7.40 (7.35-7.45) Arterial Blood pCO2 at Patient Temp 39 mmHg (35-46) Arterial Blood pO2 at Patient Temp 65 mmHg (75-108) Arterial Blood HCO3 24 mmol/L (21-28) Arterial Blood Base Excess -1 mmol/L (-3-3) FiO2 100 Laboratory Tests Test 05/01/21 15:25 05/01/21 17:53 05/01/21 23:58 05/02/21 05:15 O2 Saturation 91 % (92-99) Arterial Blood pH 7.35 (7.35-7.45) Arterial Blood pCO2 at Patient Temp 37 mmHg (35-46) Arterial Blood pO2 at Patient Temp 63 mmHg (75-108) Arterial Blood HCO3 20 mmol/L (21-28) Arterial Blood Base Excess -5 mmol/L (-3-3) FiO2 100 Glucose (Fingerstick) 244 mg/dL (70-99) 276 mg/dL (70-99) White Blood Count 5.9 x10^3/uL (4.0-11.0) Red Blood Count 4.34 x10^6/uL (4.30-5.70) Hemoglobin 12.9 g/dL (13.0-17.5) Hematocrit 38.7 % (39.0-53.0) Mean Corpuscular Volume 89 fL (79-100) Mean Corpuscular Hemoglobin 30 pg (25-35) Mean Corpuscular Hemoglobin Concent 33 g/dL (31-37) Red Cell Distribution Width 14.3 % (11.5-14.5) Platelet Count 146 x10^3/uL (140-400) Neutrophils (%) (Auto) 88 % (31-73) Lymphocytes (%) (Auto) 4 % (24-48) Monocytes (%) (Auto) 8 % (0-9) Eosinophils (%) (Auto) 0 % (0-3) Basophils (%) (Auto) 0 % (0-3) Neutrophils # (Auto) 5.2 x10^3/uL (1.8-7.7) Lymphocytes # (Auto) 0.2 x10^3/uL (1.0-4.8) Monocytes # (Auto) 0.4 x10^3/uL (0.0-1.1) Eosinophils # (Auto) 0.0 x10^3/uL (0.0-0.7) Basophils # (Auto) 0.0 x10^3/uL (0.0-0.2) Sodium Level 134 mmol/L (136-145) Potassium Level 5.4 mmol/L (3.5-5.1) Chloride Level 101 mmol/L (98-107) Carbon Dioxide Level 27 mmol/L (21-32) Anion Gap 6 (6-14) Blood Urea Nitrogen 46 mg/dL (8-26) Creatinine 1.3 mg/dL (0.7-1.3) Estimated GFR (Cockcroft-Gault) 58.9 Glucose Level 273 mg/dL (70-99) Calcium Level 8.2 mg/dL (8.5-10.1) Test 05/02/21 08:00 O2 Saturation 93 % (92-99) Arterial Blood pH 7.40 (7.35-7.45) Arterial Blood pCO2 at Patient Temp 39 mmHg (35-46) Arterial Blood pO2 at Patient Temp 65 mmHg (75-108) Arterial Blood HCO3 24 mmol/L (21-28) Arterial Blood Base Excess -1 mmol/L (-3-3) FiO2 100 Comments Chest x-ray reviewed 05/01/2021 Bilateral interstitial infiltrates which are diffuse and unchanged Chest x-ray reviewed 04/25/2021. Diffuse bilateral interstitial infiltrates Impression . IMPRESSION: 1. Acute hypoxemic respiratory failure secondary to COVID-19 viral pneumonia. Patient failed 100% FiO2 via BiPAP for days. Patient intubated 05/01/2021 2. COVID-19 viral pneumonia, acute respiratory distress syndrome. 3. Morbid obesity. Plan . Updated 05/02 Continue present pressure control mode, inverse ratio ventilation and 14 of PEEP. Follow ABGs and make necessary adjustments. Status post remdesivir, steroids for total of 10 days. Nutritional support with enteral nutrition. DVT prophylaxis adjusted dosage Discussed with RN and respiratory therapist. We will reach out to patient's son and updated him about patient's critical condition cct 30 min Updated 05/01 Patient's oxygen level is marginal with a PO2 in the mid 50s. Initiated on Precedex drip. Tolerating the BiPAP better. Continue BiPAP, 100% FiO2. Will watch closely for need for intubation. Status post remdesivir, steroids for total of 10 days. Nutritional support DVT prophylaxis adjusted dosage Discussed with RN and respiratory therapist. addend: Patients O2 saturations dropped in 70's with increased WOB. d/w RN. Patient intubated. will follow ABG/ CXR cct 30 min Updated 04/30 Appears to be holding his own Continue BiPAP, wean FiO2 to 95%. We will try 100% Vapotherm in the next 24 hours Status post remdesivir, steroids for total of 10 days. Nutritional support DVT prophylaxis adjusted dosage Discussed with RN and respiratory therapist. Updated 04/29 Appears to be holding his own Continue BiPAP, wean FiO2 to 95%. Status post remdesivir, steroids for total of 10 days. Nutritional support DVT prophylaxis adjusted dosage Discussed with RN and respiratory therapist. Updated 04/28 Appears to be holding his own Continue BiPAP Remdesivir, steroids Nutritional support DVT prophylaxis adjusted dosage Discontinue Rocephin updated 04/27 Patient continues to be okay with BiPAP Remdesivir Steroids Nutritional support updated 04/26 Patient appears to be doing well on BiPAP Remdesivir DVT GI prophylaxis Nutritional support Steroid ANKUR ROMEO MD May 02, 2021 10:55
[2021-05-02] MEDS: PROPOFOL 100 ML IV PRN ×3 (12:04→23:57)
[2021-05-02] MEDS ORDERED: DEXTROSE 50% 25 GM / 50ML DISP.SYRIN. IV PRN (13:00)
--- NOTE | 2021-05-02 16:24 | NUR ---
SS following up with discharge planning. SS reviewed pt chart and discussed with pt RN. Pt is currently on the vent at 100%. Pt was intubated on 05/01/2021. COVID19 positive. Pt on IV Doxycycline. Pt on Fentanyl, Propofol, Versed, and Vec. Not stable. SS will continue to follow for discharge planning.
[2021-05-02] MEDS ORDERED: INSULIN LISPRO 300 UNITS/3 ML VIAL. SQ SCH (17:00)
[2021-05-02] MEDS: INSULIN GLARGINE SYRINGE. SQ SCH (21:24)
[2021-05-03] VITALS (25 sets, daily range): BP systolic 102–124; BP diastolic 64–77
[2021-05-03] MEDS: INSULIN LISPRO 300 UNITS/3 ML VIAL. SQ SCH ×5 (00:06→23:52)
[2021-05-03] MEDS: DEXMEDETOMIDINE 400 MCG in IV NORMAL SALINE 100ML 96 ML IV PRN ×5 (00:41→19:42)
[2021-05-03] MEDS: MIDAZOLAM 100mg/100ml NS BAG 100 ML IV PRN ×2 (05:36→14:59)
[2021-05-03 05:44] LABS: BASO % 0 % (0-3); EOS % 0 % (0-3); HEMATOCRIT 38.7 % (39.0-53.0); HEMOGLOBIN 12.7 g/dL (13.0-17.5); LYMPH # 0.2 x10^3/uL (1.0-4.8); LYMPH % 2 % (24-48); MEAN CORPUSCULAR HEMOGLOBIN 29 pg (25-35); MEAN CORPUSCULAR HGB CONC 33 g/dL (31-37); MEAN CORPUSCULAR VOLUME 89 fL (79-100); MONO # 0.9 x10^3/uL (0.0-1.1); MONO % 11 % (0-9); NEUT # 7.1 x10^3/uL (1.8-7.7); NEUT % 86 % (31-73); PLATELET COUNT 200 x10^3/uL (140-400); RED BLOOD COUNT 4.34 x10^6/uL (4.30-5.70); RED CELL DISTRIBUTION WIDTH 14.5 % (11.5-14.5); WHITE BLOOD COUNT 8.3 x10^3/uL (4.0-11.0)
[2021-05-03 05:56] LABS: CALCIUM 8.4 mg/dL (8.5-10.1); CREATININE 1.2 mg/dL (0.7-1.3); GFR 64.6; POTASSIUM 5.4 mmol/L (3.5-5.1)
[2021-05-03] MEDS: NORCURON - VECURONIUM 50 MG in IV NORMAL SALINE 50ML 50 ML IV PRN ×3 (06:01→22:49)
[2021-05-03 07:48] LABS: BASE EXCESS ABG -4 mmol/L (-3-3); HCO3 ABG 21 mmol/L (21-28); PCO2 ABG 36 mmHg (35-46); PO2 ABG 69 mmHg (75-108); SAT O2 ABG 93 % (92-99)
[2021-05-03] MEDS: DEXAMETHASONE SOD PHOS 4 MG/ML VIAL IVP SCH (07:56)
[2021-05-03] MEDS: FAMOTIDINE 20 MG/2 ML VIAL IVP SCH ×2 (07:56→20:03)
[2021-05-03] MEDS: ASPIRIN CHEWABLE 81 MG TABLET. PO SCH (07:57)
[2021-05-03] MEDS: ENOXAPARIN 40 MG/0.4 ML SYRINGE. SQ SCH ×2 (07:57→20:01)
[2021-05-03] MEDS: LACTOBACILLUS RHAMNOSUS GG 1 CAPSULE. PO SCH ×2 (07:57→20:01)
[2021-05-03] MEDS: MULTIVITAMINS,THERAPEUTIC 5 ML ORAL LIQUID. PEG SCH (07:57)
--- NOTE | 2021-05-03 08:15 | PDOC ---
[facility] PROGRESS NOTE Date of Service DOS: DATE: 05/03/21 TIME: 08:12 Chief Complaint Chief Complaint CC: COVID-19 viral pneumonia Acute hypoxemic respiratory failure Morbid obesity History of Present Illness History of Present Illness 04/26/2021 Patient seen and examined in the ICU He is on BiPAP with as needed Vapotherm Has IV remdesivir hanging Discussed with RN Chart reviewed He appears critically ill 04/27/21: Patient was seen and examined in the ICU today. Afebrile, morbidly obese patient. Currently on BiPAP 18/10. O2 saturation while examined was 100%. Discussed with RN who said patient stated he preferred to be on BiPAP over non- rebreather or Vapotherm. His blood sugar was high today and he was given insulin to bring that down. Patient also has history of anxiety so has been given Xanax. Patient complains of upper back pain so has a Lidocaine patch which he says has been working well for that pain. Chart reviewed. 04/28/21: Patient was seen and examined in the ICU. Currently on BiPAP 20/10 with 100% FiO2. His O2 sat was at 99% while being examined. Peralta to bedside in place. Discussed with RN. Chart reviewed. 04/29/21: Patient seen and examined in the ICU. He is currently on BiPAP 20/10 with 100% FiO2. While being examined, the patient had a 97% O2 sat. Peralta to bedside present. Discussed with RN. Chart reviewed. 04/30/21: Patient was seen and examined in the ICU today. Resting with NAD. He is on BiPAP 20/10. FiO2 is at 100%. Rate is 12. Current O2 sat is at 100%. Patient on Clinimix. Peralta to bedside in place. Discussed with RN. Chart reviewed. 05/01/21: Patient seen and examined in the ICU. Currently on BiPAP 20/6 with FiO2 of 100% and rate of 12. O2 sat while being examined was at 88% O2. Peralta to bedside present. Discussed with RN. Chart reviewed. 05/02/2021: Patient seen in the ICU. Febrile overnight, T-max 100.9 F. On vent with FiO2 100%, PEEP 14. Completed remdesivir. Continue steroids to complete 10-day course with slow taper (last day should be 05/05/2021). Continue empiric antibiotics and supportive care. Critical care time 30 minutes spent reviewing charts, reviewing labs, reviewing imaging, discussion with RN. 05/03/2021: Afebrile. On vent with FiO2 100%, PEEP 14. Completed remdesivir. Continue steroids for total of 10 days with slow taper (taper to begin 05/06). Continue empiric antibiotics. Critical care time 30 minutes spent reviewing charts, reviewing labs, reviewing imaging, discussion with RN. Vitals/I&O Vitals/I&O: Vital Signs Date Time Temp Pulse Resp B/P (MAP) Pulse Ox O2 Delivery O2 Flow Rate FiO2 05/03/21 07:37 92 Ventilator 05/03/21 07:14 98.8 72 28 118/71 (87) 98.8 05/03/21 04:29 15.0 I & O 05/02/21 05/02/21 05/03/21 15:00 23:00 07:00 Intake Total 100 ml 1359 ml 1185.36 ml Output Total 700 ml 835 ml 600 ml Balance -600 ml 524 ml 585.36 ml Physical Exam General: mild distress Heart: Regular rate Lungs: Other (Intubated, coarse breath sounds bilaterally) Abdomen: No tenderness Extremities: No clubbing, No cyanosis Skin: No rashes, No breakdown Labs Labs: Laboratory Tests Test 05/02/21 12:06 05/02/21 17:13 05/02/21 23:45 05/03/21 05:05 Glucose (Fingerstick) 267 mg/dL (70-99) 255 mg/dL (70-99) 216 mg/dL (70-99) White Blood Count 8.3 x10^3/uL (4.0-11.0) Red Blood Count 4.34 x10^6/uL (4.30-5.70) Hemoglobin 12.7 g/dL (13.0-17.5) Hematocrit 38.7 % (39.0-53.0) Mean Corpuscular Volume 89 fL (79-100) Mean Corpuscular Hemoglobin 29 pg (25-35) Mean Corpuscular Hemoglobin Concent 33 g/dL (31-37) Red Cell Distribution Width 14.5 % (11.5-14.5) Platelet Count 200 x10^3/uL (140-400) Neutrophils (%) (Auto) 86 % (31-73) Lymphocytes (%) (Auto) 2 % (24-48) Monocytes (%) (Auto) 11 % (0-9) Eosinophils (%) (Auto) 0 % (0-3) Basophils (%) (Auto) 0 % (0-3) Neutrophils # (Auto) 7.1 x10^3/uL (1.8-7.7) Lymphocytes # (Auto) 0.2 x10^3/uL (1.0-4.8) Monocytes # (Auto) 0.9 x10^3/uL (0.0-1.1) Eosinophils # (Auto) 0.0 x10^3/uL (0.0-0.7) Basophils # (Auto) 0.0 x10^3/uL (0.0-0.2) Sodium Level 135 mmol/L (136-145) Potassium Level 5.4 mmol/L (3.5-5.1) Chloride Level 103 mmol/L (98-107) Carbon Dioxide Level 23 mmol/L (21-32) Anion Gap 9 (6-14) Blood Urea Nitrogen 43 mg/dL (8-26) Creatinine 1.2 mg/dL (0.7-1.3) Estimated GFR (Cockcroft-Gault) 64.6 Glucose Level 215 mg/dL (70-99) Calcium Level 8.4 mg/dL (8.5-10.1) Test 05/03/21 05:58 Glucose (Fingerstick) 226 mg/dL (70-99) Comment Review of Relevant I have reviewed the following items jeanne (where applicable) has been applied. Medications: Current Medications Medications (Trade) Dose Ordered Sig/Berna Route PRN Reason Start Time Stop Time Status Last Admin Dose Admin Multivitamins/ Minerals Therapeutic (Centrum Multivit-Mineral Liq) 5 ml DAILY PEG 05/03/21 09:00 05/03/21 07:57 Insulin Glargine (Lantus Syringe) 20 unit QHS SQ 05/02/21 21:00 05/02/21 21:24 Justifications for Admission Other Justification LUH JANE MD May 03, 2021 08:15
[2021-05-03 08:36] LABS: FIO2 ABG 100/VENT
[2021-05-03] MEDS: DOXYCYCLINE HYCLATE 100 MG in IV DEXTROSE 5% 100ML 100 ML IV SCH ×2 (10:02→20:03)
--- NOTE | 2021-05-03 11:11 | PDOC ---
PULMONARY PROGRESS NOTES DATE: 05/03/21 TIME: 11:09 Subjective Patient intubated 05/01/2021 due to worsening hypoxia despite 100% FiO2 via BiPAP. Currently on pressure control mode, inverse i.e. ratio and 14 of PEEP Vitals Vital Signs Date Time Temp Pulse Resp B/P (MAP) Pulse Ox O2 Delivery O2 Flow Rate FiO2 05/03/21 09:54 71 28 104/65 (78) 95 Ventilator 05/03/21 07:14 98.8 98.8 05/03/21 04:29 15.0 Comments Patient is seen doing the COVID-19 viral pandemic, no paroxysmal breathing pattern, minimal edema. Labs Laboratory Tests Test 05/01/21 15:25 05/01/21 17:53 05/01/21 23:58 05/02/21 05:15 O2 Saturation 91 % (92-99) Arterial Blood pH 7.35 (7.35-7.45) Arterial Blood pCO2 at Patient Temp 37 mmHg (35-46) Arterial Blood pO2 at Patient Temp 63 mmHg (75-108) Arterial Blood HCO3 20 mmol/L (21-28) Arterial Blood Base Excess -5 mmol/L (-3-3) FiO2 100 Glucose (Fingerstick) 244 mg/dL (70-99) 276 mg/dL (70-99) White Blood Count 5.9 x10^3/uL (4.0-11.0) Red Blood Count 4.34 x10^6/uL (4.30-5.70) Hemoglobin 12.9 g/dL (13.0-17.5) Hematocrit 38.7 % (39.0-53.0) Mean Corpuscular Volume 89 fL (79-100) Mean Corpuscular Hemoglobin 30 pg (25-35) Mean Corpuscular Hemoglobin Concent 33 g/dL (31-37) Red Cell Distribution Width 14.3 % (11.5-14.5) Platelet Count 146 x10^3/uL (140-400) Neutrophils (%) (Auto) 88 % (31-73) Lymphocytes (%) (Auto) 4 % (24-48) Monocytes (%) (Auto) 8 % (0-9) Eosinophils (%) (Auto) 0 % (0-3) Basophils (%) (Auto) 0 % (0-3) Neutrophils # (Auto) 5.2 x10^3/uL (1.8-7.7) Lymphocytes # (Auto) 0.2 x10^3/uL (1.0-4.8) Monocytes # (Auto) 0.4 x10^3/uL (0.0-1.1) Eosinophils # (Auto) 0.0 x10^3/uL (0.0-0.7) Basophils # (Auto) 0.0 x10^3/uL (0.0-0.2) Sodium Level 134 mmol/L (136-145) Potassium Level 5.4 mmol/L (3.5-5.1) Chloride Level 101 mmol/L (98-107) Carbon Dioxide Level 27 mmol/L (21-32) Anion Gap 6 (6-14) Blood Urea Nitrogen 46 mg/dL (8-26) Creatinine 1.3 mg/dL (0.7-1.3) Estimated GFR (Cockcroft-Gault) 58.9 Glucose Level 273 mg/dL (70-99) Calcium Level 8.2 mg/dL (8.5-10.1) Test 05/02/21 08:00 05/02/21 12:06 05/02/21 17:13 05/02/21 23:45 O2 Saturation 93 % (92-99) Arterial Blood pH 7.40 (7.35-7.45) Arterial Blood pCO2 at Patient Temp 39 mmHg (35-46) Arterial Blood pO2 at Patient Temp 65 mmHg (75-108) Arterial Blood HCO3 24 mmol/L (21-28) Arterial Blood Base Excess -1 mmol/L (-3-3) FiO2 100 Glucose (Fingerstick) 267 mg/dL (70-99) 255 mg/dL (70-99) 216 mg/dL (70-99) Test 05/03/21 05:05 05/03/21 05:58 05/03/21 07:30 White Blood Count 8.3 x10^3/uL (4.0-11.0) Red Blood Count 4.34 x10^6/uL (4.30-5.70) Hemoglobin 12.7 g/dL (13.0-17.5) Hematocrit 38.7 % (39.0-53.0) Mean Corpuscular Volume 89 fL (79-100) Mean Corpuscular Hemoglobin 29 pg (25-35) Mean Corpuscular Hemoglobin Concent 33 g/dL (31-37) Red Cell Distribution Width 14.5 % (11.5-14.5) Platelet Count 200 x10^3/uL (140-400) Neutrophils (%) (Auto) 86 % (31-73) Lymphocytes (%) (Auto) 2 % (24-48) Monocytes (%) (Auto) 11 % (0-9) Eosinophils (%) (Auto) 0 % (0-3) Basophils (%) (Auto) 0 % (0-3) Neutrophils # (Auto) 7.1 x10^3/uL (1.8-7.7) Lymphocytes # (Auto) 0.2 x10^3/uL (1.0-4.8) Monocytes # (Auto) 0.9 x10^3/uL (0.0-1.1) Eosinophils # (Auto) 0.0 x10^3/uL (0.0-0.7) Basophils # (Auto) 0.0 x10^3/uL (0.0-0.2) Sodium Level 135 mmol/L (136-145) Potassium Level 5.4 mmol/L (3.5-5.1) Chloride Level 103 mmol/L (98-107) Carbon Dioxide Level 23 mmol/L (21-32) Anion Gap 9 (6-14) Blood Urea Nitrogen 43 mg/dL (8-26) Creatinine 1.2 mg/dL (0.7-1.3) Estimated GFR (Cockcroft-Gault) 64.6 Glucose Level 215 mg/dL (70-99) Calcium Level 8.4 mg/dL (8.5-10.1) Glucose (Fingerstick) 226 mg/dL (70-99) O2 Saturation 93 % (92-99) Arterial Blood pH 7.38 (7.35-7.45) Arterial Blood pCO2 at Patient Temp 36 mmHg (35-46) Arterial Blood pO2 at Patient Temp 69 mmHg (75-108) Arterial Blood HCO3 21 mmol/L (21-28) Arterial Blood Base Excess -4 mmol/L (-3-3) FiO2 100/vent Laboratory Tests Test 05/02/21 12:06 05/02/21 17:13 05/02/21 23:45 05/03/21 05:05 Glucose (Fingerstick) 267 mg/dL (70-99) 255 mg/dL (70-99) 216 mg/dL (70-99) White Blood Count 8.3 x10^3/uL (4.0-11.0) Red Blood Count 4.34 x10^6/uL (4.30-5.70) Hemoglobin 12.7 g/dL (13.0-17.5) Hematocrit 38.7 % (39.0-53.0) Mean Corpuscular Volume 89 fL (79-100) Mean Corpuscular Hemoglobin 29 pg (25-35) Mean Corpuscular Hemoglobin Concent 33 g/dL (31-37) Red Cell Distribution Width 14.5 % (11.5-14.5) Platelet Count 200 x10^3/uL (140-400) Neutrophils (%) (Auto) 86 % (31-73) Lymphocytes (%) (Auto) 2 % (24-48) Monocytes (%) (Auto) 11 % (0-9) Eosinophils (%) (Auto) 0 % (0-3) Basophils (%) (Auto) 0 % (0-3) Neutrophils # (Auto) 7.1 x10^3/uL (1.8-7.7) Lymphocytes # (Auto) 0.2 x10^3/uL (1.0-4.8) Monocytes # (Auto) 0.9 x10^3/uL (0.0-1.1) Eosinophils # (Auto) 0.0 x10^3/uL (0.0-0.7) Basophils # (Auto) 0.0 x10^3/uL (0.0-0.2) Sodium Level 135 mmol/L (136-145) Potassium Level 5.4 mmol/L (3.5-5.1) Chloride Level 103 mmol/L (98-107) Carbon Dioxide Level 23 mmol/L (21-32) Anion Gap 9 (6-14) Blood Urea Nitrogen 43 mg/dL (8-26) Creatinine 1.2 mg/dL (0.7-1.3) Estimated GFR (Cockcroft-Gault) 64.6 Glucose Level 215 mg/dL (70-99) Calcium Level 8.4 mg/dL (8.5-10.1) Test 05/03/21 05:58 05/03/21 07:30 Glucose (Fingerstick) 226 mg/dL (70-99) O2 Saturation 93 % (92-99) Arterial Blood pH 7.38 (7.35-7.45) Arterial Blood pCO2 at Patient Temp 36 mmHg (35-46) Arterial Blood pO2 at Patient Temp 69 mmHg (75-108) Arterial Blood HCO3 21 mmol/L (21-28) Arterial Blood Base Excess -4 mmol/L (-3-3) FiO2 100/vent Comments Chest x-ray reviewed 05/01/2021 Bilateral interstitial infiltrates which are diffuse and unchanged Chest x-ray reviewed 04/25/2021. Diffuse bilateral interstitial infiltrates Impression . IMPRESSION: 1. Acute hypoxemic respiratory failure secondary to COVID-19 viral pneumonia. Patient failed 100% FiO2 via BiPAP for days. Patient intubated 05/01/2021 2. COVID-19 viral pneumonia, acute respiratory distress syndrome. 3. Morbid obesity. Plan . Updated 05/03 Continue present pressure control mode, inverse ratio ventilation and 14 of PEEP. Follow ABGs and make necessary adjustments. Status post remdesivir, steroids for total of 10 days. Nutritional support with enteral nutrition. DVT prophylaxis adjusted dosage Discussed with RN and respiratory therapist. We will reach out to patient's family and updated him about patient's critical condition cct 30 min Updated 05/02 Continue present pressure control mode, inverse ratio ventilation and 14 of PEEP. Follow ABGs and make necessary adjustments. Status post remdesivir, steroids for total of 10 days. Nutritional support with enteral nutrition. DVT prophylaxis adjusted dosage Discussed with RN and respiratory therapist. We will reach out to patient's son and updated him about patient's critical condition cct 30 min Updated 05/01 Patient's oxygen level is marginal with a PO2 in the mid 50s. Initiated on Precedex drip. Tolerating the BiPAP better. Continue BiPAP, 100% FiO2. Will watch closely for need for intubation. Status post remdesivir, steroids for total of 10 days. Nutritional support DVT prophylaxis adjusted dosage Discussed with RN and respiratory therapist. addend: Patients O2 saturations dropped in 70's with increased WOB. d/w RN. Patient intubated. will follow ABG/ CXR cct 30 min Updated 04/30 Appears to be holding his own Continue BiPAP, wean FiO2 to 95%. We will try 100% Vapotherm in the next 24 hours Status post remdesivir, steroids for total of 10 days. Nutritional support DVT prophylaxis adjusted dosage Discussed with RN and respiratory therapist. Updated 04/29 Appears to be holding his own Continue BiPAP, wean FiO2 to 95%. Status post remdesivir, steroids for total of 10 days. Nutritional support DVT prophylaxis adjusted dosage Discussed with RN and respiratory therapist. Updated 04/28 Appears to be holding his own Continue BiPAP Remdesivir, steroids Nutritional support DVT prophylaxis adjusted dosage Discontinue Rocephin updated 04/27 Patient continues to be okay with BiPAP Remdesivir Steroids Nutritional support updated 04/26 Patient appears to be doing well on BiPAP Remdesivir DVT GI prophylaxis Nutritional support Steroid ANKUR ROMEO MD May 03, 2021 11:11
--- NOTE | 2021-05-03 11:34 | NUR ---
SS following up with discharge planning. SS reviewed pt chart and discussed with pt RN. Pt is currently on the vent at 100%. COVID19 positive. Pt on IV Doxycycline. Pt on Fentanyl, Propofol, Versed, and Vec. Not stable. SS will continue to follow for discharge planning.
[2021-05-03] MEDS: PROPOFOL 100 ML IV PRN ×3 (13:15→23:51)
[2021-05-03] MEDS: INSULIN GLARGINE SYRINGE. SQ SCH (20:01)
[2021-05-04] VITALS (24 sets, daily range): BP systolic 110–129; BP diastolic 52–77
[2021-05-04] MEDS: DEXMEDETOMIDINE 400 MCG in IV NORMAL SALINE 100ML 96 ML IV PRN ×5 (00:46→21:34)
[2021-05-04] MEDS: MIDAZOLAM 100mg/100ml NS BAG 100 ML IV PRN ×2 (02:58→13:42)
[2021-05-04 03:12] LABS: HEMOGLOBIN A1C 8.1 % (4.8-5.6)
[2021-05-04] MEDS: INSULIN LISPRO 300 UNITS/3 ML VIAL. SQ SCH ×4 (05:33→23:16)
[2021-05-04 05:49] LABS: BASO # 0.1 x10^3/uL (0.0-0.2); BASO % 1 % (0-3); EOS % 0 % (0-3); HEMATOCRIT 37.8 % (39.0-53.0); HEMOGLOBIN 12.5 g/dL (13.0-17.5); LYMPH # 0.3 x10^3/uL (1.0-4.8); LYMPH % 3 % (24-48); MEAN CORPUSCULAR HEMOGLOBIN 30 pg (25-35); MEAN CORPUSCULAR HGB CONC 33 g/dL (31-37); MEAN CORPUSCULAR VOLUME 89 fL (79-100); MONO # 1.7 x10^3/uL (0.0-1.1); MONO % 17 % (0-9); NEUT % 78 % (31-73); PLATELET COUNT 225 x10^3/uL (140-400); RED BLOOD COUNT 4.23 x10^6/uL (4.30-5.70); RED CELL DISTRIBUTION WIDTH 14.1 % (11.5-14.5); WHITE BLOOD COUNT 10.2 x10^3/uL (4.0-11.0)
[2021-05-04 06:08] LABS: CALCIUM 8.4 mg/dL (8.5-10.1); GFR 79.8
[2021-05-04] MEDS: PROPOFOL 100 ML IV PRN ×3 (06:18→18:43)
[2021-05-04] MEDS: NORCURON - VECURONIUM 50 MG in IV NORMAL SALINE 50ML 50 ML IV PRN ×2 (06:18→16:38)
[2021-05-04 08:31] LABS: BASE EXCESS ABG -3 mmol/L (-3-3); HCO3 ABG 21 mmol/L (21-28); PCO2 ABG 37 mmHg (35-46); PO2 ABG 75 mmHg (75-108); SAT O2 ABG 94 % (92-99)
[2021-05-04 08:32] LABS: % BANDS 8 % (0-9); % LYMPHS 4 % (24-48); % MONOS 17 % (0-10); % SEGS 71 % (35-66)
[2021-05-04 08:34] LABS: PLT ESTIMATE ADEQUATE (ADEQUATE)
[2021-05-04 08:34] LABS: FIO2 ABG 100
--- NOTE | 2021-05-04 08:40 | RAD ---
EXAM: Chest, single view. HISTORY: Covid 19. COMPARISON: 05/01/2021. FINDINGS: A frontal view of the chest is obtained. There is an endotracheal tube within the mid trach ea. There is a nasogastric tube within the stomach. There is a right internal jugular catheter with t he tip overlying the expected location of the superior cavoatrial junction. There is stable diffuse l ower lobe predominant interstitial infiltrate. No pleural effusion or pneumothorax is seen. There is a stable cardiac silhouette. IMPRESSION: 1. Stable diffuse lower lobe predominant interstitial infiltrate. 2. Stable support lines and tubes. Electronically signed by: Deann Chapman MD (05/04/2021 8:38 AM) [id number]
--- NOTE | 2021-05-04 08:46 | PDOC ---
[facility] PROGRESS NOTE Date of Service DOS: DATE: 05/04/21 TIME: 08:45 Chief Complaint Chief Complaint CC: COVID-19 viral pneumonia Acute hypoxemic respiratory failure Morbid obesity History of Present Illness History of Present Illness 04/26/2021 Patient seen and examined in the ICU He is on BiPAP with as needed Vapotherm Has IV remdesivir hanging Discussed with RN Chart reviewed He appears critically ill 04/27/21: Patient was seen and examined in the ICU today. Afebrile, morbidly obese patient. Currently on BiPAP 18/10. O2 saturation while examined was 100%. Discussed with RN who said patient stated he preferred to be on BiPAP over non- rebreather or Vapotherm. His blood sugar was high today and he was given insulin to bring that down. Patient also has history of anxiety so has been given Xanax. Patient complains of upper back pain so has a Lidocaine patch which he says has been working well for that pain. Chart reviewed. 04/28/21: Patient was seen and examined in the ICU. Currently on BiPAP 20/10 with 100% FiO2. His O2 sat was at 99% while being examined. Peralta to bedside in place. Discussed with RN. Chart reviewed. 04/29/21: Patient seen and examined in the ICU. He is currently on BiPAP 20/10 with 100% FiO2. While being examined, the patient had a 97% O2 sat. Peralta to bedside present. Discussed with RN. Chart reviewed. 04/30/21: Patient was seen and examined in the ICU today. Resting with NAD. He is on BiPAP 20/10. FiO2 is at 100%. Rate is 12. Current O2 sat is at 100%. Patient on Clinimix. Peralta to bedside in place. Discussed with RN. Chart reviewed. 05/01/21: Patient seen and examined in the ICU. Currently on BiPAP 20/6 with FiO2 of 100% and rate of 12. O2 sat while being examined was at 88% O2. Peralta to bedside present. Discussed with RN. Chart reviewed. 05/02/2021: Patient seen in the ICU. Febrile overnight, T-max 100.9 F. On vent with FiO2 100%, PEEP 14. Completed remdesivir. Continue steroids to complete 10-day course with slow taper (last day should be 05/05/2021). Continue empiric antibiotics and supportive care. Critical care time 30 minutes spent reviewing charts, reviewing labs, reviewing imaging, discussion with RN. 05/03/2021: Afebrile. On vent with FiO2 100%, PEEP 14. Completed remdesivir. Continue steroids for total of 10 days with slow taper (taper to begin 05/06). Continue empiric antibiotics. Critical care time 30 minutes spent reviewing charts, reviewing labs, reviewing imaging, discussion with RN. 05/04/2021: Afebrile. On vent with FiO2 100%, PEEP 13. Will increase basal insulin for tighter blood glucose control. Completed remdesivir. Continue steroids for total of 10 days with slow taper (taper to begin 05/06). Continue empiric antibiotics. Critical care time 30 minutes spent reviewing charts, reviewing labs, reviewing imaging, discussion with RN. Vitals/I&O Vitals/I&O: Vital Signs Date Time Temp Pulse Resp B/P (MAP) Pulse Ox O2 Delivery O2 Flow Rate FiO2 05/04/21 08:14 96 Ventilator 05/04/21 07:00 68 28 129/75 (93) 05/04/21 04:00 97.9 97.9 05/04/21 03:35 15.0 I & O 05/03/21 05/03/21 05/04/21 15:00 23:00 07:00 Intake Total 200 ml 1620 ml 1422 ml Output Total 950 ml 1000 ml 1025 ml Balance -750 ml 620 ml 397 ml Physical Exam General: No acute distress, Other (Intubated and sedated) Heart: Regular rate Lungs: Other (Intubated on ventilator) Abdomen: No tenderness Extremities: No clubbing, No cyanosis Skin: No rashes, No breakdown Labs Labs: Laboratory Tests Test 05/03/21 11:28 05/03/21 17:08 05/03/21 23:43 05/04/21 05:30 Glucose (Fingerstick) 231 mg/dL (70-99) 246 mg/dL (70-99) 265 mg/dL (70-99) White Blood Count 10.2 x10^3/uL (4.0-11.0) Red Blood Count 4.23 x10^6/uL (4.30-5.70) Hemoglobin 12.5 g/dL (13.0-17.5) Hematocrit 37.8 % (39.0-53.0) Mean Corpuscular Volume 89 fL (79-100) Mean Corpuscular Hemoglobin 30 pg (25-35) Mean Corpuscular Hemoglobin Concent 33 g/dL (31-37) Red Cell Distribution Width 14.1 % (11.5-14.5) Platelet Count 225 x10^3/uL (140-400) Neutrophils (%) (Auto) 78 % (31-73) Lymphocytes (%) (Auto) 3 % (24-48) Monocytes (%) (Auto) 17 % (0-9) Eosinophils (%) (Auto) 0 % (0-3) Basophils (%) (Auto) 1 % (0-3) Neutrophils # (Auto) 8.0 x10^3/uL (1.8-7.7) Lymphocytes # (Auto) 0.3 x10^3/uL (1.0-4.8) Monocytes # (Auto) 1.7 x10^3/uL (0.0-1.1) Eosinophils # (Auto) 0.0 x10^3/uL (0.0-0.7) Basophils # (Auto) 0.1 x10^3/uL (0.0-0.2) Segmented Neutrophils % 71 % (35-66) Band Neutrophils % 8 % (0-9) Lymphocytes % 4 % (24-48) Monocytes % 17 % (0-10) Platelet Estimate Adequate (ADEQUATE) Sodium Level 135 mmol/L (136-145) Potassium Level 5.0 mmol/L (3.5-5.1) Chloride Level 102 mmol/L (98-107) Carbon Dioxide Level 26 mmol/L (21-32) Anion Gap 7 (6-14) Blood Urea Nitrogen 35 mg/dL (8-26) Creatinine 1.0 mg/dL (0.7-1.3) Estimated GFR (Cockcroft-Gault) 79.8 Glucose Level 251 mg/dL (70-99) Calcium Level 8.4 mg/dL (8.5-10.1) Test 05/04/21 05:32 05/04/21 08:20 Glucose (Fingerstick) 242 mg/dL (70-99) O2 Saturation 94 % (92-99) Arterial Blood pH 7.38 (7.35-7.45) Arterial Blood pCO2 at Patient Temp 37 mmHg (35-46) Arterial Blood pO2 at Patient Temp 75 mmHg (75-108) Arterial Blood HCO3 21 mmol/L (21-28) Arterial Blood Base Excess -3 mmol/L (-3-3) FiO2 100 Comment Review of Relevant I have reviewed the following items jeanne (where applicable) has been applied. Medications: Current Medications Medications (Trade) Dose Ordered Sig/Berna Route PRN Reason Start Time Stop Time Status Last Admin Dose Admin Multivitamins/ Minerals Therapeutic (Centrum Multivit-Mineral Liq) 5 ml DAILY PEG 05/03/21 09:00 05/03/21 07:57 Enoxaparin Sodium (Lovenox 40mg Syringe) 40 mg BID SQ 05/03/21 21:00 05/03/21 20:01 Justifications for Admission Other Justification LUH JANE MD May 04, 2021 08:46
[2021-05-04] MEDS: ASPIRIN CHEWABLE 81 MG TABLET. PO SCH (09:14)
[2021-05-04] MEDS: LACTOBACILLUS RHAMNOSUS GG 1 CAPSULE. PO SCH (09:14)
[2021-05-04] MEDS: MULTIVITAMINS,THERAPEUTIC 5 ML ORAL LIQUID. PEG SCH (09:14)
[2021-05-04] MEDS: ENOXAPARIN 40 MG/0.4 ML SYRINGE. SQ SCH ×2 (09:15→20:25)
[2021-05-04] MEDS: FAMOTIDINE 20 MG/2 ML VIAL IVP SCH ×2 (09:15→20:24)
[2021-05-04] MEDS: DEXAMETHASONE SOD PHOS 4 MG/ML VIAL IVP SCH (09:15)
[2021-05-04] MEDS: DOXYCYCLINE HYCLATE 100 MG in IV DEXTROSE 5% 100ML 100 ML IV SCH ×2 (09:42→20:26)
--- NOTE | 2021-05-04 10:01 | PDOC ---
PULMONARY PROGRESS NOTES DATE: 05/04/21 TIME: 09:57 Subjective Patient intubated 05/01/2021 due to worsening hypoxia Currently on pressure control mode, inverse i.e. ratio and 13 of PEEP Vitals Vital Signs Date Time Temp Pulse Resp B/P (MAP) Pulse Ox O2 Delivery O2 Flow Rate FiO2 05/04/21 09:11 95 Ventilator 05/04/21 07:00 68 28 129/75 (93) 05/04/21 04:00 97.9 97.9 05/04/21 03:35 15.0 Comments Patient is seen doing the COVID-19 viral pandemic, no paroxysmal breathing pattern, minimal edema. Labs Laboratory Tests Test 05/02/21 12:06 05/02/21 17:13 05/02/21 23:45 05/03/21 05:05 Glucose (Fingerstick) 267 mg/dL (70-99) 255 mg/dL (70-99) 216 mg/dL (70-99) White Blood Count 8.3 x10^3/uL (4.0-11.0) Red Blood Count 4.34 x10^6/uL (4.30-5.70) Hemoglobin 12.7 g/dL (13.0-17.5) Hematocrit 38.7 % (39.0-53.0) Mean Corpuscular Volume 89 fL (79-100) Mean Corpuscular Hemoglobin 29 pg (25-35) Mean Corpuscular Hemoglobin Concent 33 g/dL (31-37) Red Cell Distribution Width 14.5 % (11.5-14.5) Platelet Count 200 x10^3/uL (140-400) Neutrophils (%) (Auto) 86 % (31-73) Lymphocytes (%) (Auto) 2 % (24-48) Monocytes (%) (Auto) 11 % (0-9) Eosinophils (%) (Auto) 0 % (0-3) Basophils (%) (Auto) 0 % (0-3) Neutrophils # (Auto) 7.1 x10^3/uL (1.8-7.7) Lymphocytes # (Auto) 0.2 x10^3/uL (1.0-4.8) Monocytes # (Auto) 0.9 x10^3/uL (0.0-1.1) Eosinophils # (Auto) 0.0 x10^3/uL (0.0-0.7) Basophils # (Auto) 0.0 x10^3/uL (0.0-0.2) Sodium Level 135 mmol/L (136-145) Potassium Level 5.4 mmol/L (3.5-5.1) Chloride Level 103 mmol/L (98-107) Carbon Dioxide Level 23 mmol/L (21-32) Anion Gap 9 (6-14) Blood Urea Nitrogen 43 mg/dL (8-26) Creatinine 1.2 mg/dL (0.7-1.3) Estimated GFR (Cockcroft-Gault) 64.6 Glucose Level 215 mg/dL (70-99) Hemoglobin A1c 8.1 % (4.8-5.6) Calcium Level 8.4 mg/dL (8.5-10.1) Test 05/03/21 05:58 05/03/21 07:30 05/03/21 11:28 05/03/21 17:08 Glucose (Fingerstick) 226 mg/dL (70-99) 231 mg/dL (70-99) 246 mg/dL (70-99) O2 Saturation 93 % (92-99) Arterial Blood pH 7.38 (7.35-7.45) Arterial Blood pCO2 at Patient Temp 36 mmHg (35-46) Arterial Blood pO2 at Patient Temp 69 mmHg (75-108) Arterial Blood HCO3 21 mmol/L (21-28) Arterial Blood Base Excess -4 mmol/L (-3-3) FiO2 100/vent Test 05/03/21 23:43 05/04/21 05:30 05/04/21 05:32 05/04/21 08:20 Glucose (Fingerstick) 265 mg/dL (70-99) 242 mg/dL (70-99) White Blood Count 10.2 x10^3/uL (4.0-11.0) Red Blood Count 4.23 x10^6/uL (4.30-5.70) Hemoglobin 12.5 g/dL (13.0-17.5) Hematocrit 37.8 % (39.0-53.0) Mean Corpuscular Volume 89 fL (79-100) Mean Corpuscular Hemoglobin 30 pg (25-35) Mean Corpuscular Hemoglobin Concent 33 g/dL (31-37) Red Cell Distribution Width 14.1 % (11.5-14.5) Platelet Count 225 x10^3/uL (140-400) Neutrophils (%) (Auto) 78 % (31-73) Lymphocytes (%) (Auto) 3 % (24-48) Monocytes (%) (Auto) 17 % (0-9) Eosinophils (%) (Auto) 0 % (0-3) Basophils (%) (Auto) 1 % (0-3) Neutrophils # (Auto) 8.0 x10^3/uL (1.8-7.7) Lymphocytes # (Auto) 0.3 x10^3/uL (1.0-4.8) Monocytes # (Auto) 1.7 x10^3/uL (0.0-1.1) Eosinophils # (Auto) 0.0 x10^3/uL (0.0-0.7) Basophils # (Auto) 0.1 x10^3/uL (0.0-0.2) Segmented Neutrophils % 71 % (35-66) Band Neutrophils % 8 % (0-9) Lymphocytes % 4 % (24-48) Monocytes % 17 % (0-10) Platelet Estimate Adequate (ADEQUATE) Sodium Level 135 mmol/L (136-145) Potassium Level 5.0 mmol/L (3.5-5.1) Chloride Level 102 mmol/L (98-107) Carbon Dioxide Level 26 mmol/L (21-32) Anion Gap 7 (6-14) Blood Urea Nitrogen 35 mg/dL (8-26) Creatinine 1.0 mg/dL (0.7-1.3) Estimated GFR (Cockcroft-Gault) 79.8 Glucose Level 251 mg/dL (70-99) Calcium Level 8.4 mg/dL (8.5-10.1) O2 Saturation 94 % (92-99) Arterial Blood pH 7.38 (7.35-7.45) Arterial Blood pCO2 at Patient Temp 37 mmHg (35-46) Arterial Blood pO2 at Patient Temp 75 mmHg (75-108) Arterial Blood HCO3 21 mmol/L (21-28) Arterial Blood Base Excess -3 mmol/L (-3-3) FiO2 100 Laboratory Tests Test 05/03/21 11:28 05/03/21 17:08 05/03/21 23:43 05/04/21 05:30 Glucose (Fingerstick) 231 mg/dL (70-99) 246 mg/dL (70-99) 265 mg/dL (70-99) White Blood Count 10.2 x10^3/uL (4.0-11.0) Red Blood Count 4.23 x10^6/uL (4.30-5.70) Hemoglobin 12.5 g/dL (13.0-17.5) Hematocrit 37.8 % (39.0-53.0) Mean Corpuscular Volume 89 fL (79-100) Mean Corpuscular Hemoglobin 30 pg (25-35) Mean Corpuscular Hemoglobin Concent 33 g/dL (31-37) Red Cell Distribution Width 14.1 % (11.5-14.5) Platelet Count 225 x10^3/uL (140-400) Neutrophils (%) (Auto) 78 % (31-73) Lymphocytes (%) (Auto) 3 % (24-48) Monocytes (%) (Auto) 17 % (0-9) Eosinophils (%) (Auto) 0 % (0-3) Basophils (%) (Auto) 1 % (0-3) Neutrophils # (Auto) 8.0 x10^3/uL (1.8-7.7) Lymphocytes # (Auto) 0.3 x10^3/uL (1.0-4.8) Monocytes # (Auto) 1.7 x10^3/uL (0.0-1.1) Eosinophils # (Auto) 0.0 x10^3/uL (0.0-0.7) Basophils # (Auto) 0.1 x10^3/uL (0.0-0.2) Segmented Neutrophils % 71 % (35-66) Band Neutrophils % 8 % (0-9) Lymphocytes % 4 % (24-48) Monocytes % 17 % (0-10) Platelet Estimate Adequate (ADEQUATE) Sodium Level 135 mmol/L (136-145) Potassium Level 5.0 mmol/L (3.5-5.1) Chloride Level 102 mmol/L (98-107) Carbon Dioxide Level 26 mmol/L (21-32) Anion Gap 7 (6-14) Blood Urea Nitrogen 35 mg/dL (8-26) Creatinine 1.0 mg/dL (0.7-1.3) Estimated GFR (Cockcroft-Gault) 79.8 Glucose Level 251 mg/dL (70-99) Calcium Level 8.4 mg/dL (8.5-10.1) Test 05/04/21 05:32 05/04/21 08:20 Glucose (Fingerstick) 242 mg/dL (70-99) O2 Saturation 94 % (92-99) Arterial Blood pH 7.38 (7.35-7.45) Arterial Blood pCO2 at Patient Temp 37 mmHg (35-46) Arterial Blood pO2 at Patient Temp 75 mmHg (75-108) Arterial Blood HCO3 21 mmol/L (21-28) Arterial Blood Base Excess -3 mmol/L (-3-3) FiO2 100 Comments Chest x-ray reviewed 05/04/2021. Faint bilateral interstitial infiltrates. Not significantly changed Chest x-ray reviewed 05/01/2021 Bilateral interstitial infiltrates which are diffuse and unchanged Chest x-ray reviewed 04/25/2021. Diffuse bilateral interstitial infiltrates Impression . IMPRESSION: 1. Acute hypoxemic respiratory failure secondary to COVID-19 viral pneumonia. Patient failed 100% FiO2 via BiPAP for days. Patient intubated 05/01/2021. Oxygenation is stable. Currently on pressure control inverse ratio ventilation and 100% FiO2 2. COVID-19 viral pneumonia, acute respiratory distress syndrome. 3. Morbid obesity. 4. Mild faint bilateral interstitial infiltrates related to COVID-19 viral pneumonia Plan . Updated 05/04 Continue present pressure control mode, inverse ratio ventilation and 13 of PEEP. We will wean PEEP to 13 today. Follow ABGs and make necessary adjustments. Status post remdesivir, steroids for total of 10 days. Nutritional support with enteral nutrition. DVT prophylaxis adjusted dosage Discussed with RN and respiratory therapist. Chest x-ray with minimal infiltrates. Severity of hypoxia somewhat out of proportion to the radiographic abnormalities. Will obtain D-dimer today cct 30 min Updated 05/03 Continue present pressure control mode, inverse ratio ventilation and 14 of PEEP. Follow ABGs and make necessary adjustments. Status post remdesivir, steroids for total of 10 days. Nutritional support with enteral nutrition. DVT prophylaxis adjusted dosage Discussed with RN and respiratory therapist. We will reach out to patient's family and updated him about patient's critical condition cct 30 min Updated 05/02 Continue present pressure control mode, inverse ratio ventilation and 14 of PEEP. Follow ABGs and make necessary adjustments. Status post remdesivir, steroids for total of 10 days. Nutritional support with enteral nutrition. DVT prophylaxis adjusted dosage Discussed with RN and respiratory therapist. We will reach out to patient's son and updated him about patient's critical c ondition cct 30 min Updated 05/01 Patient's oxygen level is marginal with a PO2 in the mid 50s. Initiated on Precedex drip. Tolerating the BiPAP better. Continue BiPAP, 100% FiO2. Will watch closely for need for intubation. Status post remdesivir, steroids for total of 10 days. Nutritional support DVT prophylaxis adjusted dosage Discussed with RN and respiratory therapist. addend: Patients O2 saturations dropped in 70's with increased WOB. d/w RN. Patient intubated. will follow ABG/ CXR cct 30 min Updated 04/30 Appears to be holding his own Continue BiPAP, wean FiO2 to 95%. We will try 100% Vapotherm in the next 24 hours Status post remdesivir, steroids for total of 10 days. Nutritional support DVT prophylaxis adjusted dosage Discussed with RN and respiratory therapist. Updated 04/29 Appears to be holding his own Continue BiPAP, wean FiO2 to 95%. Status post remdesivir, steroids for total of 10 days. Nutritional support DVT prophylaxis adjusted dosage Discussed with RN and respiratory therapist. Updated 04/28 Appears to be holding his own Continue BiPAP Remdesivir, steroids Nutritional support DVT prophylaxis adjusted dosage Discontinue Rocephin updated 04/27 Patient continues to be okay with BiPAP Remdesivir Steroids Nutritional support updated 04/26 Patient appears to be doing well on BiPAP Remdesivir DVT GI prophylaxis Nutritional support Steroid ANKUR ROMEO MD May 04, 2021 10:00
[2021-05-04] MEDS: INSULIN GLARGINE SYRINGE. SQ SCH (20:26)
[2021-05-05] VITALS (24 sets, daily range): BP systolic 103–149; BP diastolic 70–83
[2021-05-05] MEDS: PROPOFOL 100 ML IV PRN ×5 (02:00→17:16)
[2021-05-05] MEDS: MIDAZOLAM 100mg/100ml NS BAG 100 ML IV PRN ×3 (03:00→21:43)
[2021-05-05] MEDS: DEXMEDETOMIDINE 400 MCG in IV NORMAL SALINE 100ML 96 ML IV PRN ×5 (03:30→21:43)
[2021-05-05] MEDS: NORCURON - VECURONIUM 50 MG in IV NORMAL SALINE 50ML 50 ML IV PRN ×3 (04:20→17:13)
[2021-05-05] MEDS: INSULIN LISPRO 300 UNITS/3 ML VIAL. SQ SCH ×4 (06:00→23:55)
[2021-05-05 06:34] LABS: BASO % 0 % (0-3); EOS # 0.2 x10^3/uL (0.0-0.7); EOS % 2 % (0-3); HEMATOCRIT 37.5 % (39.0-53.0); HEMOGLOBIN 12.5 g/dL (13.0-17.5); LYMPH # 0.5 x10^3/uL (1.0-4.8); LYMPH % 4 % (24-48); MEAN CORPUSCULAR HEMOGLOBIN 30 pg (25-35); MEAN CORPUSCULAR HGB CONC 33 g/dL (31-37); MEAN CORPUSCULAR VOLUME 89 fL (79-100); MONO # 1.9 x10^3/uL (0.0-1.1); MONO % 17 % (0-9); NEUT # 8.7 x10^3/uL (1.8-7.7); NEUT % 77 % (31-73); PLATELET COUNT 262 x10^3/uL (140-400); RED BLOOD COUNT 4.21 x10^6/uL (4.30-5.70); WHITE BLOOD COUNT 11.3 x10^3/uL (4.0-11.0)
[2021-05-05 07:11] LABS: CALCIUM 8.4 mg/dL (8.5-10.1); CREATININE 0.9 mg/dL (0.7-1.3); GFR 90.1; POTASSIUM 4.7 mmol/L (3.5-5.1)
[2021-05-05] MEDS: DOXYCYCLINE HYCLATE 100 MG in IV DEXTROSE 5% 100ML 100 ML IV SCH ×2 (08:35→21:03)
[2021-05-05] MEDS: ENOXAPARIN 40 MG/0.4 ML SYRINGE. SQ SCH ×2 (08:36→20:32)
[2021-05-05] MEDS: ASPIRIN CHEWABLE 81 MG TABLET. PO SCH (08:36)
[2021-05-05] MEDS: DEXAMETHASONE SOD PHOS 4 MG/ML VIAL IVP SCH (08:37)
[2021-05-05] MEDS: FAMOTIDINE 20 MG/2 ML VIAL IVP SCH ×2 (08:37→20:31)
[2021-05-05] MEDS: MULTIVITAMINS,THERAPEUTIC 5 ML ORAL LIQUID. PEG SCH (08:37)
[2021-05-05 08:46] LABS: BASE EXCESS ABG -3 mmol/L (-3-3); HCO3 ABG 21 mmol/L (21-28); PCO2 ABG 33 mmHg (35-46); PO2 ABG 70 mmHg (75-108); SAT O2 ABG 93 % (92-99)
[2021-05-05 08:49] LABS: FIO2 ABG 100
--- NOTE | 2021-05-05 10:25 | PDOC ---
PULMONARY PROGRESS NOTES DATE: 05/05/21 TIME: 10:22 Subjective Patient intubated 05/01/2021 due to worsening hypoxia Currently on pressure control mode, inverse i.e. ratio and 12 of PEEP Vitals Vital Signs Date Time Temp Pulse Resp B/P (MAP) Pulse Ox O2 Delivery O2 Flow Rate FiO2 05/05/21 10:00 85 28 106/70 (82) 90 Ventilator 05/05/21 08:00 98.7 98.7 05/04/21 11:42 15.0 Comments Patient is seen doing the COVID-19 viral pandemic, no paroxysmal breathing pattern, minimal edema. Labs Laboratory Tests Test 05/03/21 11:28 05/03/21 17:08 05/03/21 23:43 05/04/21 05:30 Glucose (Fingerstick) 231 mg/dL (70-99) 246 mg/dL (70-99) 265 mg/dL (70-99) White Blood Count 10.2 x10^3/uL (4.0-11.0) Red Blood Count 4.23 x10^6/uL (4.30-5.70) Hemoglobin 12.5 g/dL (13.0-17.5) Hematocrit 37.8 % (39.0-53.0) Mean Corpuscular Volume 89 fL (79-100) Mean Corpuscular Hemoglobin 30 pg (25-35) Mean Corpuscular Hemoglobin Concent 33 g/dL (31-37) Red Cell Distribution Width 14.1 % (11.5-14.5) Platelet Count 225 x10^3/uL (140-400) Neutrophils (%) (Auto) 78 % (31-73) Lymphocytes (%) (Auto) 3 % (24-48) Monocytes (%) (Auto) 17 % (0-9) Eosinophils (%) (Auto) 0 % (0-3) Basophils (%) (Auto) 1 % (0-3) Neutrophils # (Auto) 8.0 x10^3/uL (1.8-7.7) Lymphocytes # (Auto) 0.3 x10^3/uL (1.0-4.8) Monocytes # (Auto) 1.7 x10^3/uL (0.0-1.1) Eosinophils # (Auto) 0.0 x10^3/uL (0.0-0.7) Basophils # (Auto) 0.1 x10^3/uL (0.0-0.2) Segmented Neutrophils % 71 % (35-66) Band Neutrophils % 8 % (0-9) Lymphocytes % 4 % (24-48) Monocytes % 17 % (0-10) Platelet Estimate Adequate (ADEQUATE) Sodium Level 135 mmol/L (136-145) Potassium Level 5.0 mmol/L (3.5-5.1) Chloride Level 102 mmol/L (98-107) Carbon Dioxide Level 26 mmol/L (21-32) Anion Gap 7 (6-14) Blood Urea Nitrogen 35 mg/dL (8-26) Creatinine 1.0 mg/dL (0.7-1.3) Estimated GFR (Cockcroft-Gault) 79.8 Glucose Level 251 mg/dL (70-99) Calcium Level 8.4 mg/dL (8.5-10.1) Test 05/04/21 05:32 05/04/21 08:20 05/04/21 10:40 05/04/21 11:13 Glucose (Fingerstick) 242 mg/dL (70-99) 259 mg/dL (70-99) O2 Saturation 94 % (92-99) Arterial Blood pH 7.38 (7.35-7.45) Arterial Blood pCO2 at Patient Temp 37 mmHg (35-46) Arterial Blood pO2 at Patient Temp 75 mmHg (75-108) Arterial Blood HCO3 21 mmol/L (21-28) Arterial Blood Base Excess -3 mmol/L (-3-3) FiO2 100 D-Dimer (Pepper) 10.13 ug/mlFEU (0.00-0.50) Test 05/04/21 17:54 05/04/21 23:10 05/05/21 05:45 05/05/21 05:58 Glucose (Fingerstick) 289 mg/dL (70-99) 218 mg/dL (70-99) 237 mg/dL (70-99) White Blood Count 11.3 x10^3/uL (4.0-11.0) Red Blood Count 4.21 x10^6/uL (4.30-5.70) Hemoglobin 12.5 g/dL (13.0-17.5) Hematocrit 37.5 % (39.0-53.0) Mean Corpuscular Volume 89 fL (79-100) Mean Corpuscular Hemoglobin 30 pg (25-35) Mean Corpuscular Hemoglobin Concent 33 g/dL (31-37) Red Cell Distribution Width 14.0 % (11.5-14.5) Platelet Count 262 x10^3/uL (140-400) Neutrophils (%) (Auto) 77 % (31-73) Lymphocytes (%) (Auto) 4 % (24-48) Monocytes (%) (Auto) 17 % (0-9) Eosinophils (%) (Auto) 2 % (0-3) Basophils (%) (Auto) 0 % (0-3) Neutrophils # (Auto) 8.7 x10^3/uL (1.8-7.7) Lymphocytes # (Auto) 0.5 x10^3/uL (1.0-4.8) Monocytes # (Auto) 1.9 x10^3/uL (0.0-1.1) Eosinophils # (Auto) 0.2 x10^3/uL (0.0-0.7) Basophils # (Auto) 0.0 x10^3/uL (0.0-0.2) Sodium Level 136 mmol/L (136-145) Potassium Level 4.7 mmol/L (3.5-5.1) Chloride Level 102 mmol/L (98-107) Carbon Dioxide Level 24 mmol/L (21-32) Anion Gap 10 (6-14) Blood Urea Nitrogen 32 mg/dL (8-26) Creatinine 0.9 mg/dL (0.7-1.3) Estimated GFR (Cockcroft-Gault) 90.1 Glucose Level 217 mg/dL (70-99) Calcium Level 8.4 mg/dL (8.5-10.1) Magnesium Level 2.0 mg/dL (1.8-2.4) Test 05/05/21 08:35 O2 Saturation 93 % (92-99) Arterial Blood pH 7.41 (7.35-7.45) Arterial Blood pCO2 at Patient Temp 33 mmHg (35-46) Arterial Blood pO2 at Patient Temp 70 mmHg (75-108) Arterial Blood HCO3 21 mmol/L (21-28) Arterial Blood Base Excess -3 mmol/L (-3-3) FiO2 100 Laboratory Tests Test 05/04/21 10:40 05/04/21 11:13 05/04/21 17:54 05/04/21 23:10 D-Dimer (Pepper) 10.13 ug/mlFEU (0.00-0.50) Glucose (Fingerstick) 259 mg/dL (70-99) 289 mg/dL (70-99) 218 mg/dL (70-99) Test 05/05/21 05:45 05/05/21 05:58 05/05/21 08:35 White Blood Count 11.3 x10^3/uL (4.0-11.0) Red Blood Count 4.21 x10^6/uL (4.30-5.70) Hemoglobin 12.5 g/dL (13.0-17.5) Hematocrit 37.5 % (39.0-53.0) Mean Corpuscular Volume 89 fL (79-100) Mean Corpuscular Hemoglobin 30 pg (25-35) Mean Corpuscular Hemoglobin Concent 33 g/dL (31-37) Red Cell Distribution Width 14.0 % (11.5-14.5) Platelet Count 262 x10^3/uL (140-400) Neutrophils (%) (Auto) 77 % (31-73) Lymphocytes (%) (Auto) 4 % (24-48) Monocytes (%) (Auto) 17 % (0-9) Eosinophils (%) (Auto) 2 % (0-3) Basophils (%) (Auto) 0 % (0-3) Neutrophils # (Auto) 8.7 x10^3/uL (1.8-7.7) Lymphocytes # (Auto) 0.5 x10^3/uL (1.0-4.8) Monocytes # (Auto) 1.9 x10^3/uL (0.0-1.1) Eosinophils # (Auto) 0.2 x10^3/uL (0.0-0.7) Basophils # (Auto) 0.0 x10^3/uL (0.0-0.2) Sodium Level 136 mmol/L (136-145) Potassium Level 4.7 mmol/L (3.5-5.1) Chloride Level 102 mmol/L (98-107) Carbon Dioxide Level 24 mmol/L (21-32) Anion Gap 10 (6-14) Blood Urea Nitrogen 32 mg/dL (8-26) Creatinine 0.9 mg/dL (0.7-1.3) Estimated GFR (Cockcroft-Gault) 90.1 Glucose Level 217 mg/dL (70-99) Calcium Level 8.4 mg/dL (8.5-10.1) Magnesium Level 2.0 mg/dL (1.8-2.4) Glucose (Fingerstick) 237 mg/dL (70-99) O2 Saturation 93 % (92-99) Arterial Blood pH 7.41 (7.35-7.45) Arterial Blood pCO2 at Patient Temp 33 mmHg (35-46) Arterial Blood pO2 at Patient Temp 70 mmHg (75-108) Arterial Blood HCO3 21 mmol/L (21-28) Arterial Blood Base Excess -3 mmol/L (-3-3) FiO2 100 Comments Chest x-ray reviewed 05/04/2021. Faint bilateral interstitial infiltrates. Not significantly changed Chest x-ray reviewed 05/01/2021 Bilateral interstitial infiltrates which are diffuse and unchanged Chest x-ray reviewed 04/25/2021. Diffuse bilateral interstitial infiltrates Impression . IMPRESSION: 1. Acute hypoxemic respiratory failure secondary to COVID-19 viral pneumonia. Patient failed 100% FiO2 via BiPAP for days. Patient intubated 05/01/2021. Oxygenation is stable. Currently on pressure control inverse ratio ventilation and 100% FiO2 and 12 of PEEP 2. COVID-19 viral pneumonia, acute respiratory distress syndrome. 3. Morbid obesity. 4. Mild faint bilateral interstitial infiltrates related to COVID-19 viral pneumonia Plan . Updated 05/05 Continue present pressure control mode, inverse ratio ventilation and 12 of PEEP. We will wean FiO2 to 95% Follow ABGs and make necessary adjustments. Status post remdesivir, steroids for total of 10 days. Nutritional support with enteral nutrition. DVT prophylaxis adjusted dosage Discussed with RN and respiratory therapist. Chest x-ray with minimal infiltrates. D-dimer elevated at 10. We will continue present DVT prophylaxis. Discussed with patient's nephew Sergio and updated on clinical condition Updated 05/04 Continue present pressure control mode, inverse ratio ventilation and 13 of PEEP. We will wean PEEP to 13 today. Follow ABGs and make necessary adjustments. Status post remdesivir, steroids for total of 10 days. Nutritional support with enteral nutrition. DVT prophylaxis adjusted dosage Discussed with RN and respiratory therapist. Chest x-ray with minimal infiltrates. Severity of hypoxia somewhat out of proportion to the radiographic abnormalities. Will obtain D-dimer today cct 30 min Updated 05/03 Continue present pressure control mode, inverse ratio ventilation and 14 of PEEP. Follow ABGs and make necessary adjustments. Status post remdesivir, steroids for total of 10 days. Nutritional support with enteral nutrition. DVT prophylaxis adjusted dosage Discussed with RN and respiratory therapist. We will reach out to patient's family and updated him about patient's critical condition cct 30 min Updated 05/02 Continue present pressure control mode, inverse ratio ventilation and 14 of PEEP. Follow ABGs and make necessary adjustments. Status post remdesivir, steroids for total of 10 days. Nutritional support with enteral nutrition. DVT prophylaxis adjusted dosage Discussed with RN and respiratory therapist. We will reach out to patient's son and updated him about patient's critical condition cct 30 min NAKUR ROMEO MD May 05, 2021 10:25
--- NOTE | 2021-05-05 12:26 | PDOC ---
[facility] [facility] PROGRESS NOTE Date of Service DOS: DATE: 05/05/21 TIME: 12:23 Chief Complaint Chief Complaint CC: COVID-19 viral pneumonia Acute hypoxemic respiratory failure Morbid obesity History of Present Illness History of Present Illness 04/26/2021 Patient seen and examined in the ICU He is on BiPAP with as needed Vapotherm Has IV remdesivir hanging Discussed with RN Chart reviewed He appears critically ill 04/27/21: Patient was seen and examined in the ICU today. Afebrile, morbidly obese patient. Currently on BiPAP 18/10. O2 saturation while examined was 100%. Discussed with RN who said patient stated he preferred to be on BiPAP over non- rebreather or Vapotherm. His blood sugar was high today and he was given insulin to bring that down. Patient also has history of anxiety so has been given Xanax. Patient complains of upper back pain so has a Lidocaine patch which he says has been working well for that pain. Chart reviewed. 04/28/21: Patient was seen and examined in the ICU. Currently on BiPAP 20/10 with 100% FiO2. His O2 sat was at 99% while being examined. Peralta to bedside in place. Discussed with RN. Chart reviewed. 04/29/21: Patient seen and examined in the ICU. He is currently on BiPAP 20/10 with 100% FiO2. While being examined, the patient had a 97% O2 sat. Peralta to bedside present. Discussed with RN. Chart reviewed. 04/30/21: Patient was seen and examined in the ICU today. Resting with NAD. He is on BiPAP 20/10. FiO2 is at 100%. Rate is 12. Current O2 sat is at 100%. Patient on Clinimix. Peralta to bedside in place. Discussed with RN. Chart reviewed. 05/01/21: Patient seen and examined in the ICU. Currently on BiPAP 20/6 with FiO2 of 100% and rate of 12. O2 sat while being examined was at 88% O2. Peralta to bedside present. Discussed with RN. Chart reviewed. 05/02/2021: Patient seen in the ICU. Febrile overnight, T-max 100.9 F. On vent with FiO2 100%, PEEP 14. Completed remdesivir. Continue steroids to complete 10-day course with slow taper (last day should be 05/05/2021). Continue empiric antibiotics and supportive care. Critical care time 30 minutes spent reviewing charts, reviewing labs, reviewing imaging, discussion with RN. 05/03/2021: Afebrile. On vent with FiO2 100%, PEEP 14. Completed remdesivir. Continue steroids for total of 10 days with slow taper (taper to begin 05/06). Continue empiric antibiotics. Critical care time 30 minutes spent reviewing charts, reviewing labs, reviewing imaging, discussion with RN. 05/04/2021: Afebrile. On vent with FiO2 100%, PEEP 13. Will increase basal insulin for tighter blood glucose control. Completed remdesivir. Continue steroids for total of 10 days with slow taper (taper to begin 05/06). Continue empiric antibiotics. Critical care time 30 minutes spent reviewing charts, reviewing labs, reviewing imaging, discussion with RN. 05/05/2021: Afebrile, on vent with FiO2 100%, PEEP 14. Continue steroids for total of 10 days with slow taper (taper to begin 05/06). Continue empiric antibiotics. Completed remdesivir. Continue to closely monitor blood sugar. Critical care time 30 minutes spent reviewing charts, reviewing labs, reviewing imaging, discussion with RN. Vitals/I&O Vitals/I&O: Vital Signs Date Time Temp Pulse Resp B/P (MAP) Pulse Ox O2 Delivery O2 Flow Rate FiO2 05/05/21 12:00 98.6 77 28 108/74 (85) 93 Ventilator 98.6 05/04/21 11:42 15.0 I & O 05/04/21 05/04/21 05/05/21 15:00 23:00 07:00 Intake Total 360 ml 1844.57 ml 1539 ml Output Total 850 ml 1225 ml 825 ml Balance -490 ml 619.57 ml 714 ml Physical Exam General: No acute distress, Other (Intubated and sedated) Heart: Regular rate Lungs: Other (Intubated on ventilator) Abdomen: No tenderness Extremities: No clubbing, No cyanosis Skin: No rashes, No breakdown Labs Labs: Laboratory Tests Test 05/04/21 17:54 05/04/21 23:10 05/05/21 05:45 05/05/21 05:58 Glucose (Fingerstick) 289 mg/dL (70-99) 218 mg/dL (70-99) 237 mg/dL (70-99) White Blood Count 11.3 x10^3/uL (4.0-11.0) Red Blood Count 4.21 x10^6/uL (4.30-5.70) Hemoglobin 12.5 g/dL (13.0-17.5) Hematocrit 37.5 % (39.0-53.0) Mean Corpuscular Volume 89 fL (79-100) Mean Corpuscular Hemoglobin 30 pg (25-35) Mean Corpuscular Hemoglobin Concent 33 g/dL (31-37) Red Cell Distribution Width 14.0 % (11.5-14.5) Platelet Count 262 x10^3/uL (140-400) Neutrophils (%) (Auto) 77 % (31-73) Lymphocytes (%) (Auto) 4 % (24-48) Monocytes (%) (Auto) 17 % (0-9) Eosinophils (%) (Auto) 2 % (0-3) Basophils (%) (Auto) 0 % (0-3) Neutrophils # (Auto) 8.7 x10^3/uL (1.8-7.7) Lymphocytes # (Auto) 0.5 x10^3/uL (1.0-4.8) Monocytes # (Auto) 1.9 x10^3/uL (0.0-1.1) Eosinophils # (Auto) 0.2 x10^3/uL (0.0-0.7) Basophils # (Auto) 0.0 x10^3/uL (0.0-0.2) Sodium Level 136 mmol/L (136-145) Potassium Level 4.7 mmol/L (3.5-5.1) Chloride Level 102 mmol/L (98-107) Carbon Dioxide Level 24 mmol/L (21-32) Anion Gap 10 (6-14) Blood Urea Nitrogen 32 mg/dL (8-26) Creatinine 0.9 mg/dL (0.7-1.3) Estimated GFR (Cockcroft-Gault) 90.1 Glucose Level 217 mg/dL (70-99) Calcium Level 8.4 mg/dL (8.5-10.1) Magnesium Level 2.0 mg/dL (1.8-2.4) Test 05/05/21 08:35 05/05/21 11:47 O2 Saturation 93 % (92-99) Arterial Blood pH 7.41 (7.35-7.45) Arterial Blood pCO2 at Patient Temp 33 mmHg (35-46) Arterial Blood pO2 at Patient Temp 70 mmHg (75-108) Arterial Blood HCO3 21 mmol/L (21-28) Arterial Blood Base Excess -3 mmol/L (-3-3) FiO2 100 Glucose (Fingerstick) 297 mg/dL (70-99) Comment Review of Relevant I have reviewed the following items jeanne (where applicable) has been applied. Medications: Current Medications Medications (Trade) Dose Ordered Sig/Berna Route PRN Reason Start Time Stop Time Status Last Admin Dose Admin Insulin Glargine (Lantus Syringe) 25 unit QHS SQ 05/04/21 21:00 05/04/21 20:26 Justifications for Admission Other Justification LUH JANE MD May 05, 2021 12:26
[2021-05-05] MEDS: INSULIN GLARGINE SYRINGE. SQ SCH (20:37)
[2021-05-06] VITALS (24 sets, daily range): BP systolic 101–117; BP diastolic 67–77
[2021-05-06] MEDS: NORCURON - VECURONIUM 50 MG in IV NORMAL SALINE 50ML 50 ML IV PRN ×3 (02:22→22:03)
[2021-05-06] MEDS: PROPOFOL 100 ML IV PRN ×4 (02:29→19:52)
[2021-05-06] MEDS: DEXMEDETOMIDINE 400 MCG in IV NORMAL SALINE 100ML 96 ML IV PRN ×5 (02:57→23:36)
[2021-05-06 05:34] LABS: BASO % 0 % (0-3); EOS # 0.2 x10^3/uL (0.0-0.7); EOS % 2 % (0-3); HEMATOCRIT 36.9 % (39.0-53.0); HEMOGLOBIN 12.1 g/dL (13.0-17.5); LYMPH # 0.5 x10^3/uL (1.0-4.8); LYMPH % 5 % (24-48); MEAN CORPUSCULAR HEMOGLOBIN 29 pg (25-35); MEAN CORPUSCULAR HGB CONC 33 g/dL (31-37); MEAN CORPUSCULAR VOLUME 89 fL (79-100); MONO # 1.7 x10^3/uL (0.0-1.1); MONO % 16 % (0-9); NEUT # 8.3 x10^3/uL (1.8-7.7); NEUT % 77 % (31-73); PLATELET COUNT 271 x10^3/uL (140-400); RED BLOOD COUNT 4.13 x10^6/uL (4.30-5.70); RED CELL DISTRIBUTION WIDTH 14.2 % (11.5-14.5); WHITE BLOOD COUNT 10.8 x10^3/uL (4.0-11.0)
[2021-05-06 05:42] LABS: CALCIUM 8.3 mg/dL (8.5-10.1); CREATININE 0.9 mg/dL (0.7-1.3); GFR 90.1; POTASSIUM 4.7 mmol/L (3.5-5.1)
[2021-05-06] MEDS: INSULIN LISPRO 300 UNITS/3 ML VIAL. SQ SCH ×3 (06:07→17:38)
[2021-05-06] MEDS: DOXYCYCLINE HYCLATE 100 MG in IV DEXTROSE 5% 100ML 100 ML IV SCH ×2 (07:42→20:45)
[2021-05-06] MEDS: ASPIRIN CHEWABLE 81 MG TABLET. PO SCH (07:43)
[2021-05-06] MEDS: MULTIVITAMINS,THERAPEUTIC 5 ML ORAL LIQUID. PEG SCH (07:43)
[2021-05-06] MEDS: ENOXAPARIN 40 MG/0.4 ML SYRINGE. SQ SCH ×2 (07:43→20:44)
[2021-05-06] MEDS: FAMOTIDINE 20 MG/2 ML VIAL IVP SCH ×2 (07:43→20:44)
[2021-05-06] MEDS: MIDAZOLAM 100mg/100ml NS BAG 100 ML IV PRN ×2 (07:45→20:42)
--- NOTE | 2021-05-06 08:11 | RAD ---
EXAMINATION: Chest radiograph. VIEWS: Single view COMPARISON: 05/04/2021 INDICATION:46 years, Male, respiratory failure/ARDS/Covid pneumonia. FINDINGS: Normal cardiomediastinal silhouette. Stable to slightly worsening multifocal bilateral perihilar and basilar patchy airspace opacities. No pleural effusion or pneumothorax. No acute osseous process. End otracheal tube tip locates approximately 4.7 cm proximal to the adebayo. Enteric tube tip is off image , presumably in the stomach. Right IJ central venous catheter remains unchanged. IMPRESSION: Stable to slightly worsening multifocal bilateral perihilar and basilar patchy opacities. Electronically signed by: Joo Lu MD (05/06/2021 8:08 AM) [id number]
--- NOTE | 2021-05-06 08:40 | PDOC ---
[facility] [facility] PROGRESS NOTE Date of Service DOS: DATE: 05/06/21 TIME: 08:39 Chief Complaint Chief Complaint CC: COVID-19 viral pneumonia Acute hypoxemic respiratory failure Morbid obesity History of Present Illness History of Present Illness 04/26/2021 Patient seen and examined in the ICU He is on BiPAP with as needed Vapotherm Has IV remdesivir hanging Discussed with RN Chart reviewed He appears critically ill 04/27/21: Patient was seen and examined in the ICU today. Afebrile, morbidly obese patient. Currently on BiPAP 18/10. O2 saturation while examined was 100%. Discussed with RN who said patient stated he preferred to be on BiPAP over non- rebreather or Vapotherm. His blood sugar was high today and he was given insulin to bring that down. Patient also has history of anxiety so has been given Xanax. Patient complains of upper back pain so has a Lidocaine patch which he says has been working well for that pain. Chart reviewed. 04/28/21: Patient was seen and examined in the ICU. Currently on BiPAP 20/10 with 100% FiO2. His O2 sat was at 99% while being examined. Peralta to bedside in place. Discussed with RN. Chart reviewed. 04/29/21: Patient seen and examined in the ICU. He is currently on BiPAP 20/10 with 100% FiO2. While being examined, the patient had a 97% O2 sat. Peralta to bedside present. Discussed with RN. Chart reviewed. 04/30/21: Patient was seen and examined in the ICU today. Resting with NAD. He is on BiPAP 20/10. FiO2 is at 100%. Rate is 12. Current O2 sat is at 100%. Patient on Clinimix. Peralta to bedside in place. Discussed with RN. Chart reviewed. 05/01/21: Patient seen and examined in the ICU. Currently on BiPAP 20/6 with FiO2 of 100% and rate of 12. O2 sat while being examined was at 88% O2. Peralta to bedside present. Discussed with RN. Chart reviewed. 05/02/2021: Patient seen in the ICU. Febrile overnight, T-max 100.9 F. On vent with FiO2 100%, PEEP 14. Completed remdesivir. Continue steroids to complete 10-day course with slow taper (last day should be 05/05/2021). Continue empiric antibiotics and supportive care. Critical care time 30 minutes spent reviewing charts, reviewing labs, reviewing imaging, discussion with RN. 05/03/2021: Afebrile. On vent with FiO2 100%, PEEP 14. Completed remdesivir. Continue steroids for total of 10 days with slow taper (taper to begin 05/06). Continue empiric antibiotics. Critical care time 30 minutes spent reviewing charts, reviewing labs, reviewing imaging, discussion with RN. 05/04/2021: Afebrile. On vent with FiO2 100%, PEEP 13. Will increase basal insulin for tighter blood glucose control. Completed remdesivir. Continue steroids for total of 10 days with slow taper (taper to begin 05/06). Continue empiric antibiotics. Critical care time 30 minutes spent reviewing charts, reviewing labs, reviewing imaging, discussion with RN. 05/05/2021: Afebrile, on vent with FiO2 100%, PEEP 14. Continue steroids for total of 10 days with slow taper (taper to begin 05/06). Continue empiric antibiotics. Completed remdesivir. Continue to closely monitor blood sugar. Critical care time 30 minutes spent reviewing charts, reviewing labs, reviewing imaging, discussion with RN. 05/06/2021: Afebrile. On vent with FiO2 95%, PEEP 12. Completed 10 days of Decadron; will begin slow taper today and monitor blood sugar. Completed remdesivir. Critical care time 30 minutes spent reviewing charts, reviewing labs, reviewing imaging, discussion with RN. Vitals/I&O Vitals/I&O: Vital Signs Date Time Temp Pulse Resp B/P (MAP) Pulse Ox O2 Delivery O2 Flow Rate FiO2 05/06/21 07:00 76 28 102/70 (81) 91 Ventilator 05/06/21 04:00 98.0 98.0 05/05/21 12:41 15.0 I & O 05/05/21 05/05/21 05/06/21 14:59 22:59 06:59 Intake Total 230 ml 1775.53 ml 1385.76 ml Output Total 575 ml 670 ml 500 ml Balance -345 ml 1105.53 ml 885.76 ml Physical Exam General: No acute distress, Other (Intubated and sedated) Heart: Regular rate Lungs: Other (Intubated on ventilator) Abdomen: No tenderness Extremities: No clubbing, No cyanosis Skin: No rashes, No breakdown Labs Labs: Laboratory Tests Test 05/05/21 11:47 05/05/21 17:19 05/05/21 23:33 05/06/21 05:00 Glucose (Fingerstick) 297 mg/dL (70-99) 248 mg/dL (70-99) 220 mg/dL (70-99) White Blood Count 10.8 x10^3/uL (4.0-11.0) Red Blood Count 4.13 x10^6/uL (4.30-5.70) Hemoglobin 12.1 g/dL (13.0-17.5) Hematocrit 36.9 % (39.0-53.0) Mean Corpuscular Volume 89 fL (79-100) Mean Corpuscular Hemoglobin 29 pg (25-35) Mean Corpuscular Hemoglobin Concent 33 g/dL (31-37) Red Cell Distribution Width 14.2 % (11.5-14.5) Platelet Count 271 x10^3/uL (140-400) Neutrophils (%) (Auto) 77 % (31-73) Lymphocytes (%) (Auto) 5 % (24-48) Monocytes (%) (Auto) 16 % (0-9) Eosinophils (%) (Auto) 2 % (0-3) Basophils (%) (Auto) 0 % (0-3) Neutrophils # (Auto) 8.3 x10^3/uL (1.8-7.7) Lymphocytes # (Auto) 0.5 x10^3/uL (1.0-4.8) Monocytes # (Auto) 1.7 x10^3/uL (0.0-1.1) Eosinophils # (Auto) 0.2 x10^3/uL (0.0-0.7) Basophils # (Auto) 0.0 x10^3/uL (0.0-0.2) Sodium Level 135 mmol/L (136-145) Potassium Level 4.7 mmol/L (3.5-5.1) Chloride Level 102 mmol/L (98-107) Carbon Dioxide Level 28 mmol/L (21-32) Anion Gap 5 (6-14) Blood Urea Nitrogen 31 mg/dL (8-26) Creatinine 0.9 mg/dL (0.7-1.3) Estimated GFR (Cockcroft-Gault) 90.1 Glucose Level 229 mg/dL (70-99) Calcium Level 8.3 mg/dL (8.5-10.1) Comment Review of Relevant I have reviewed the following items jeanne (where applicable) has been applied. Justifications for Admission Other Justification LUH JANE MD May 06, 2021 08:40
[2021-05-06 09:03] LABS: BASE EXCESS ABG -3 mmol/L (-3-3); HCO3 ABG 22 mmol/L (21-28); PCO2 ABG 41 mmHg (35-46); PO2 ABG 63 mmHg (75-108); SAT O2 ABG 90 % (92-99)
[2021-05-06 09:04] LABS: FIO2 ABG 95
--- NOTE | 2021-05-06 09:16 | PDOC ---
PULMONARY PROGRESS NOTES DATE: 05/06/21 TIME: 09:12 Subjective Patient intubated 05/01/2021 due to worsening hypoxia Currently on pressure control mode, inverse i.e. ratio, 95% FiO2 and 12 of PEEP No overnight concerns per nursing staff. Vitals Vital Signs Date Time Temp Pulse Resp B/P (MAP) Pulse Ox O2 Delivery O2 Flow Rate FiO2 05/06/21 08:30 98 Ventilator 05/06/21 07:00 76 28 102/70 (81) 05/06/21 04:00 98.0 98.0 05/05/21 12:41 15.0 Comments Patient is seen doing the COVID-19 viral pandemic, no paroxysmal breathing pattern, minimal edema. Lungs: Other (Intubated on ventilator) Labs Laboratory Tests Test 05/04/21 10:40 05/04/21 11:13 05/04/21 17:54 05/04/21 23:10 D-Dimer (Pepper) 10.13 ug/mlFEU (0.00-0.50) Glucose (Fingerstick) 259 mg/dL (70-99) 289 mg/dL (70-99) 218 mg/dL (70-99) Test 05/05/21 05:45 05/05/21 05:58 05/05/21 08:35 05/05/21 11:47 White Blood Count 11.3 x10^3/uL (4.0-11.0) Red Blood Count 4.21 x10^6/uL (4.30-5.70) Hemoglobin 12.5 g/dL (13.0-17.5) Hematocrit 37.5 % (39.0-53.0) Mean Corpuscular Volume 89 fL (79-100) Mean Corpuscular Hemoglobin 30 pg (25-35) Mean Corpuscular Hemoglobin Concent 33 g/dL (31-37) Red Cell Distribution Width 14.0 % (11.5-14.5) Platelet Count 262 x10^3/uL (140-400) Neutrophils (%) (Auto) 77 % (31-73) Lymphocytes (%) (Auto) 4 % (24-48) Monocytes (%) (Auto) 17 % (0-9) Eosinophils (%) (Auto) 2 % (0-3) Basophils (%) (Auto) 0 % (0-3) Neutrophils # (Auto) 8.7 x10^3/uL (1.8-7.7) Lymphocytes # (Auto) 0.5 x10^3/uL (1.0-4.8) Monocytes # (Auto) 1.9 x10^3/uL (0.0-1.1) Eosinophils # (Auto) 0.2 x10^3/uL (0.0-0.7) Basophils # (Auto) 0.0 x10^3/uL (0.0-0.2) Sodium Level 136 mmol/L (136-145) Potassium Level 4.7 mmol/L (3.5-5.1) Chloride Level 102 mmol/L (98-107) Carbon Dioxide Level 24 mmol/L (21-32) Anion Gap 10 (6-14) Blood Urea Nitrogen 32 mg/dL (8-26) Creatinine 0.9 mg/dL (0.7-1.3) Estimated GFR (Cockcroft-Gault) 90.1 Glucose Level 217 mg/dL (70-99) Calcium Level 8.4 mg/dL (8.5-10.1) Magnesium Level 2.0 mg/dL (1.8-2.4) Glucose (Fingerstick) 237 mg/dL (70-99) 297 mg/dL (70-99) O2 Saturation 93 % (92-99) Arterial Blood pH 7.41 (7.35-7.45) Arterial Blood pCO2 at Patient Temp 33 mmHg (35-46) Arterial Blood pO2 at Patient Temp 70 mmHg (75-108) Arterial Blood HCO3 21 mmol/L (21-28) Arterial Blood Base Excess -3 mmol/L (-3-3) FiO2 100 Test 05/05/21 17:19 05/05/21 23:33 05/06/21 05:00 05/06/21 08:00 Glucose (Fingerstick) 248 mg/dL (70-99) 220 mg/dL (70-99) White Blood Count 10.8 x10^3/uL (4.0-11.0) Red Blood Count 4.13 x10^6/uL (4.30-5.70) Hemoglobin 12.1 g/dL (13.0-17.5) Hematocrit 36.9 % (39.0-53.0) Mean Corpuscular Volume 89 fL (79-100) Mean Corpuscular Hemoglobin 29 pg (25-35) Mean Corpuscular Hemoglobin Concent 33 g/dL (31-37) Red Cell Distribution Width 14.2 % (11.5-14.5) Platelet Count 271 x10^3/uL (140-400) Neutrophils (%) (Auto) 77 % (31-73) Lymphocytes (%) (Auto) 5 % (24-48) Monocytes (%) (Auto) 16 % (0-9) Eosinophils (%) (Auto) 2 % (0-3) Basophils (%) (Auto) 0 % (0-3) Neutrophils # (Auto) 8.3 x10^3/uL (1.8-7.7) Lymphocytes # (Auto) 0.5 x10^3/uL (1.0-4.8) Monocytes # (Auto) 1.7 x10^3/uL (0.0-1.1) Eosinophils # (Auto) 0.2 x10^3/uL (0.0-0.7) Basophils # (Auto) 0.0 x10^3/uL (0.0-0.2) Sodium Level 135 mmol/L (136-145) Potassium Level 4.7 mmol/L (3.5-5.1) Chloride Level 102 mmol/L (98-107) Carbon Dioxide Level 28 mmol/L (21-32) Anion Gap 5 (6-14) Blood Urea Nitrogen 31 mg/dL (8-26) Creatinine 0.9 mg/dL (0.7-1.3) Estimated GFR (Cockcroft-Gault) 90.1 Glucose Level 229 mg/dL (70-99) Calcium Level 8.3 mg/dL (8.5-10.1) O2 Saturation 90 % (92-99) Arterial Blood pH 7.35 (7.35-7.45) Arterial Blood pCO2 at Patient Temp 41 mmHg (35-46) Arterial Blood pO2 at Patient Temp 63 mmHg (75-108) Arterial Blood HCO3 22 mmol/L (21-28) Arterial Blood Base Excess -3 mmol/L (-3-3) FiO2 95 Laboratory Tests Test 05/05/21 11:47 05/05/21 17:19 05/05/21 23:33 05/06/21 05:00 Glucose (Fingerstick) 297 mg/dL (70-99) 248 mg/dL (70-99) 220 mg/dL (70-99) White Blood Count 10.8 x10^3/uL (4.0-11.0) Red Blood Count 4.13 x10^6/uL (4.30-5.70) Hemoglobin 12.1 g/dL (13.0-17.5) Hematocrit 36.9 % (39.0-53.0) Mean Corpuscular Volume 89 fL (79-100) Mean Corpuscular Hemoglobin 29 pg (25-35) Mean Corpuscular Hemoglobin Concent 33 g/dL (31-37) Red Cell Distribution Width 14.2 % (11.5-14.5) Platelet Count 271 x10^3/uL (140-400) Neutrophils (%) (Auto) 77 % (31-73) Lymphocytes (%) (Auto) 5 % (24-48) Monocytes (%) (Auto) 16 % (0-9) Eosinophils (%) (Auto) 2 % (0-3) Basophils (%) (Auto) 0 % (0-3) Neutrophils # (Auto) 8.3 x10^3/uL (1.8-7.7) Lymphocytes # (Auto) 0.5 x10^3/uL (1.0-4.8) Monocytes # (Auto) 1.7 x10^3/uL (0.0-1.1) Eosinophils # (Auto) 0.2 x10^3/uL (0.0-0.7) Basophils # (Auto) 0.0 x10^3/uL (0.0-0.2) Sodium Level 135 mmol/L (136-145) Potassium Level 4.7 mmol/L (3.5-5.1) Chloride Level 102 mmol/L (98-107) Carbon Dioxide Level 28 mmol/L (21-32) Anion Gap 5 (6-14) Blood Urea Nitrogen 31 mg/dL (8-26) Creatinine 0.9 mg/dL (0.7-1.3) Estimated GFR (Cockcroft-Gault) 90.1 Glucose Level 229 mg/dL (70-99) Calcium Level 8.3 mg/dL (8.5-10.1) Test 05/06/21 08:00 O2 Saturation 90 % (92-99) Arterial Blood pH 7.35 (7.35-7.45) Arterial Blood pCO2 at Patient Temp 41 mmHg (35-46) Arterial Blood pO2 at Patient Temp 63 mmHg (75-108) Arterial Blood HCO3 22 mmol/L (21-28) Arterial Blood Base Excess -3 mmol/L (-3-3) FiO2 95 Comments Chest x-ray reviewed 05/06/2021. Mild increase in bilateral interstitial infiltrates. No significant pleural effusions. Chest x-ray reviewed 05/04/2021. Faint bilateral interstitial infiltrates. Not significantly changed Chest x-ray reviewed 05/01/2021 Bilateral interstitial infiltrates which are diffuse and unchanged Chest x-ray reviewed 04/25/2021. Diffuse bilateral interstitial infiltrates Impression . IMPRESSION: 1. Acute hypoxemic respiratory failure secondary to COVID-19 viral pneumonia. Patient failed 100% FiO2 via BiPAP for days. Patient intubated 05/01/2021. Currently on pressure control inverse ratio ventilation and 100% FiO2 and 12 of PEEP 2. COVID-19 viral pneumonia, acute respiratory distress syndrome. 3. Morbid obesity. 4. Mild progression of bilateral interstitial infiltrates dated 05/06/2021, related to COVID-19 viral pneumonia Plan . Updated 05/06 Continue present pressure control mode, inverse ratio ventilation, 95% FiO2 and 12 of PEEP. Follow ABGs and make necessary adjustments. Status post remdesivir, steroids for total of 10 days. Nutritional support with enteral nutrition. DVT prophylaxis adjusted dosage Discussed with RN and respiratory therapist. D-dimer elevated at 10. We will continue present DVT prophylaxis.Repeat D- dimer in a.m. Discussed with patient's nephew Sergio and updated on clinical condition 05/05/2021 Updated 05/05 Continue present pressure control mode, inverse ratio ventilation and 12 of PEEP. We will wean FiO2 to 95% Follow ABGs and make necessary adjustments. Status post remdesivir, steroids for total of 10 days. Nutritional support with enteral nutrition. DVT prophylaxis adjusted dosage Discussed with RN and respiratory therapist. Chest x-ray with minimal infiltrates. D-dimer elevated at 10. We will continue present DVT prophylaxis. Discussed with patient's nephew Sergio and updated on clinical condition Updated 05/04 Continue present pressure control mode, inverse ratio ventilation and 13 of PEEP. We will wean PEEP to 13 today. Follow ABGs and make necessary adjustments. Status post remdesivir, steroids for total of 10 days. Nutritional support with enteral nutrition. DVT prophylaxis adjusted dosage Discussed with RN and respiratory therapist. Chest x-ray with minimal infiltrates. Severity of hypoxia somewhat out of proportion to the radiographic abnormalities. Will obtain D-dimer today cct 30 min Updated 05/03 Continue present pressure control mode, inverse ratio ventilation and 14 of PEEP. Follow ABGs and make necessary adjustments. Status post remdesivir, steroids for total of 10 days. Nutritional support with enteral nutrition. DVT prophylaxis adjusted dosage Discussed with RN and respiratory therapist. We will reach out to patient's family and updated him about patient's critical condition cct 30 min Updated 05/02 Continue present pressure control mode, inverse ratio ventilation and 14 of PEEP. Follow ABGs and make necessary adjustments. Status post remdesivir, steroids for total of 10 days. Nutritional support with enteral nutrition. DVT prophylaxis adjusted dosage Discussed with RN and respiratory therapist. We will reach out to patient's son and updated him about patient's critical condition cct 30 min ANKUR ROMEO MD May 06, 2021 09:16
[2021-05-06] MEDS: DEXAMETHASONE SOD PHOS 4 MG/ML VIAL IVP SCH (10:21)
--- NOTE | 2021-05-06 16:15 | NUR ---
SS following up with discharge planning. SS reviewed pt chart and discussed with pt RN. Pt is currently on the vent at 95%. COVID19 positive. Pt on IV Doxycycline and IV Decadron. Pt on Fentanyl, Propofol, Versed, and Vec. Not stable. SS will continue to follow for discharge planning.
[2021-05-06] MEDS: MINERAL OIL/PETROLATUM,WHITE OPHTH OINT 3.5GM TUBE. OU PRN (17:38)
[2021-05-06] MEDS: INSULIN GLARGINE SYRINGE. SQ SCH (20:51)
[2021-05-07] VITALS (24 sets, daily range): BP systolic 99–118; BP diastolic 63–77
[2021-05-07] MEDS: INSULIN LISPRO 300 UNITS/3 ML VIAL. SQ SCH ×5 (01:05→23:44)
[2021-05-07] MEDS: DEXMEDETOMIDINE 400 MCG in IV NORMAL SALINE 100ML 96 ML IV PRN ×5 (04:31→23:14)
--- NOTE | 2021-05-07 05:56 | PDOC ---
PULMONARY PROGRESS NOTES DATE: 05/07/21 TIME: 05:55 Subjective Patient intubated 05/01/2021 due to worsening hypoxia Currently on pressure control mode, inverse i.e. ratio, 95% FiO2 and 12 of PEEP on precedex prop versed fentanly on vec gtt Vitals Vital Signs Date Time Temp Pulse Resp B/P (MAP) Pulse Ox O2 Delivery O2 Flow Rate FiO2 05/07/21 05:00 98 Ventilator 05/07/21 05:00 64 28 109/72 (84) 05/07/21 04:00 98.2 98.2 Comments ros unable to obtain sedated on vent Patient is seen doing the COVID-19 viral pandemic, nc at rrr no accessory muscle use abd obese + edema no rash Lungs: Other (Intubated on ventilator) Labs Laboratory Tests Test 05/05/21 05:58 05/05/21 08:35 05/05/21 11:47 05/05/21 17:19 Glucose (Fingerstick) 237 mg/dL (70-99) 297 mg/dL (70-99) 248 mg/dL (70-99) O2 Saturation 93 % (92-99) Arterial Blood pH 7.41 (7.35-7.45) Arterial Blood pCO2 at Patient Temp 33 mmHg (35-46) Arterial Blood pO2 at Patient Temp 70 mmHg (75-108) Arterial Blood HCO3 21 mmol/L (21-28) Arterial Blood Base Excess -3 mmol/L (-3-3) FiO2 100 Test 05/05/21 23:33 05/06/21 05:00 05/06/21 08:00 05/06/21 13:03 Glucose (Fingerstick) 220 mg/dL (70-99) 241 mg/dL (70-99) White Blood Count 10.8 x10^3/uL (4.0-11.0) Red Blood Count 4.13 x10^6/uL (4.30-5.70) Hemoglobin 12.1 g/dL (13.0-17.5) Hematocrit 36.9 % (39.0-53.0) Mean Corpuscular Volume 89 fL (79-100) Mean Corpuscular Hemoglobin 29 pg (25-35) Mean Corpuscular Hemoglobin Concent 33 g/dL (31-37) Red Cell Distribution Width 14.2 % (11.5-14.5) Platelet Count 271 x10^3/uL (140-400) Neutrophils (%) (Auto) 77 % (31-73) Lymphocytes (%) (Auto) 5 % (24-48) Monocytes (%) (Auto) 16 % (0-9) Eosinophils (%) (Auto) 2 % (0-3) Basophils (%) (Auto) 0 % (0-3) Neutrophils # (Auto) 8.3 x10^3/uL (1.8-7.7) Lymphocytes # (Auto) 0.5 x10^3/uL (1.0-4.8) Monocytes # (Auto) 1.7 x10^3/uL (0.0-1.1) Eosinophils # (Auto) 0.2 x10^3/uL (0.0-0.7) Basophils # (Auto) 0.0 x10^3/uL (0.0-0.2) Sodium Level 135 mmol/L (136-145) Potassium Level 4.7 mmol/L (3.5-5.1) Chloride Level 102 mmol/L (98-107) Carbon Dioxide Level 28 mmol/L (21-32) Anion Gap 5 (6-14) Blood Urea Nitrogen 31 mg/dL (8-26) Creatinine 0.9 mg/dL (0.7-1.3) Estimated GFR (Cockcroft-Gault) 90.1 Glucose Level 229 mg/dL (70-99) Calcium Level 8.3 mg/dL (8.5-10.1) O2 Saturation 90 % (92-99) Arterial Blood pH 7.35 (7.35-7.45) Arterial Blood pCO2 at Patient Temp 41 mmHg (35-46) Arterial Blood pO2 at Patient Temp 63 mmHg (75-108) Arterial Blood HCO3 22 mmol/L (21-28) Arterial Blood Base Excess -3 mmol/L (-3-3) FiO2 95 Test 05/06/21 16:55 05/07/21 00:50 05/07/21 05:46 Glucose (Fingerstick) 254 mg/dL (70-99) 227 mg/dL (70-99) 246 mg/dL (70-99) Laboratory Tests Test 05/06/21 08:00 05/06/21 13:03 9/17/21 16:55 05/07/21 00:50 O2 Saturation 90 % (92-99) Arterial Blood pH 7.35 (7.35-7.45) Arterial Blood pCO2 at Patient Temp 41 mmHg (35-46) Arterial Blood pO2 at Patient Temp 63 mmHg (75-108) Arterial Blood HCO3 22 mmol/L (21-28) Arterial Blood Base Excess -3 mmol/L (-3-3) FiO2 95 Glucose (Fingerstick) 241 mg/dL (70-99) 254 mg/dL (70-99) 227 mg/dL (70-99) Test 05/07/21 05:46 Glucose (Fingerstick) 246 mg/dL (70-99) Comments Chest x-ray reviewed 05/06/2021. Mild increase in bilateral interstitial infiltrates. No significant pleural effusions. Chest x-ray reviewed 05/04/2021. Faint bilateral interstitial infiltrates. Not significantly changed Chest x-ray reviewed 05/01/2021 Bilateral interstitial infiltrates which are diffuse and unchanged Chest x-ray reviewed 04/25/2021. Diffuse bilateral interstitial infiltrates Impression . IMPRESSION: 1. Acute hypoxemic respiratory failure secondary to COVID-19 viral pneumonia. Patient failed 100% FiO2 via BiPAP for days. Patient intubated 05/01/2021. Currently on pressure control inverse ratio ventilation and 100% FiO2 and 12 of PEEP 2. COVID-19 viral pneumonia, acute respiratory distress syndrome. 3. Morbid obesity. 4. Mild progression of bilateral interstitial infiltrates dated 05/06/2021, related to COVID-19 viral pneumonia Plan . Updated 05/07 Continue present pressure control mode, inverse ratio ventilation, 95% FiO2 and 12 of PEEP. has edema lasix 20 mg iv x1 Follow ABGs and make necessary adjustments. Status post remdesivir, steroids for total of 10 days. Nutritional support with enteral nutrition. DVT prophylaxis adjusted dosage Discussed with RN and respiratory therapist. D-dimer elevated at 10. We will continue present DVT prophylaxis.Repeat D- dimer 4.7 dr moffett Discussed with patient's nephew Sergio and updated on clinical condition 05/05/2021 Updated 05/06 Continue present pressure control mode, inverse ratio ventilation, 95% FiO2 and 12 of PEEP. Follow ABGs and make necessary adjustments. Status post remdesivir, steroids for total of 10 days. Nutritional support with enteral nutrition. DVT prophylaxis adjusted dosage Discussed with RN and respiratory therapist. D-dimer elevated at 10. We will continue present DVT prophylaxis.Repeat D- dimer in a.m. Discussed with patient's nephew Sergio and updated on clinical condition 05/05/2021 Updated 05/05 Continue present pressure control mode, inverse ratio ventilation and 12 of PEEP. We will wean FiO2 to 95% Follow ABGs and make necessary adjustments. Status post remdesivir, steroids for total of 10 days. Nutritional support with enteral nutrition. DVT prophylaxis adjusted dosage Discussed with RN and respiratory therapist. Chest x-ray with minimal infiltrates. D-dimer elevated at 10. We will continue present DVT prophylaxis. Discussed with patient's nephew Sergio and updated on clinical condition Updated 05/04 Continue present pressure control mode, inverse ratio ventilation and 13 of PEEP. We will wean PEEP to 13 today. Follow ABGs and make necessary adjustments. Status post remdesivir, steroids for total of 10 days. Nutritional support with enteral nutrition. DVT prophylaxis adjusted dosage Discussed with RN and respiratory therapist. Chest x-ray with minimal infiltrates. Severity of hypoxia somewhat out of proportion to the radiographic abnormalities. Will obtain D-dimer today cct 30 min Updated 05/03 Continue present pressure control mode, inverse ratio ventilation and 14 of PEEP. Follow ABGs and make necessary adjustments. Status post remdesivir, steroids for total of 10 days. Nutritional support with enteral nutrition. DVT prophylaxis adjusted dosage Discussed with RN and respiratory therapist. We will reach out to patient's family and updated him about patient's critical condition cct 30 min Updated 05/02 Continue present pressure control mode, inverse ratio ventilation and 14 of PEEP. Follow ABGs and make necessary adjustments. Status post remdesivir, steroids for total of 10 days. Nutritional support with enteral nutrition. DVT prophylaxis adjusted dosage Discussed with RN and respiratory therapist. We will reach out to patient's son and updated him about patient's critical condition cct 30 min [place] ESPITIA MD May 07, 2021 05:56
[2021-05-07] MEDS: NORCURON - VECURONIUM 50 MG in IV NORMAL SALINE 50ML 50 ML IV PRN ×2 (06:04→16:09)
[2021-05-07 07:44] LABS: BASE EXCESS ABG -5 mmol/L (-3-3); HCO3 ABG 20 mmol/L (21-28); PCO2 ABG 39 mmHg (35-46); PO2 ABG 54 mmHg (75-108); SAT O2 ABG 86 % (92-99)
--- NOTE | 2021-05-07 08:04 | PDOC ---
[facility] PROGRESS NOTE Date of Service DOS: DATE: 05/07/21 TIME: 08:01 Chief Complaint Chief Complaint CC: COVID-19 viral pneumonia Acute hypoxemic respiratory failure Morbid obesity History of Present Illness History of Present Illness 04/26/2021 Patient seen and examined in the ICU He is on BiPAP with as needed Vapotherm Has IV remdesivir hanging Discussed with RN Chart reviewed He appears critically ill 04/27/21: Patient was seen and examined in the ICU today. Afebrile, morbidly obese patient. Currently on BiPAP 18/10. O2 saturation while examined was 100%. Discussed with RN who said patient stated he preferred to be on BiPAP over non- rebreather or Vapotherm. His blood sugar was high today and he was given insulin to bring that down. Patient also has history of anxiety so has been given Xanax. Patient complains of upper back pain so has a Lidocaine patch which he says has been working well for that pain. Chart reviewed. 04/28/21: Patient was seen and examined in the ICU. Currently on BiPAP 20/10 with 100% FiO2. His O2 sat was at 99% while being examined. Peralta to bedside in place. Discussed with RN. Chart reviewed. 04/29/21: Patient seen and examined in the ICU. He is currently on BiPAP 20/10 with 100% FiO2. While being examined, the patient had a 97% O2 sat. Peralta to bedside present. Discussed with RN. Chart reviewed. 04/30/21: Patient was seen and examined in the ICU today. Resting with NAD. He is on BiPAP 20/10. FiO2 is at 100%. Rate is 12. Current O2 sat is at 100%. Patient on Clinimix. Peralta to bedside in place. Discussed with RN. Chart reviewed. 05/01/21: Patient seen and examined in the ICU. Currently on BiPAP 20/6 with FiO2 of 100% and rate of 12. O2 sat while being examined was at 88% O2. Peralta to bedside present. Discussed with RN. Chart reviewed. 05/02/2021: Patient seen in the ICU. Febrile overnight, T-max 100.9 F. On vent with FiO2 100%, PEEP 14. Completed remdesivir. Continue steroids to complete 10-day course with slow taper (last day should be 05/05/2021). Continue empiric antibiotics and supportive care. Critical care time 30 minutes spent reviewing charts, reviewing labs, reviewing imaging, discussion with RN. 05/03/2021: Afebrile. On vent with FiO2 100%, PEEP 14. Completed remdesivir. Continue steroids for total of 10 days with slow taper (taper to begin 05/06). Continue empiric antibiotics. Critical care time 30 minutes spent reviewing charts, reviewing labs, reviewing imaging, discussion with RN. 05/04/2021: Afebrile. On vent with FiO2 100%, PEEP 13. Will increase basal insulin for tighter blood glucose control. Completed remdesivir. Continue steroids for total of 10 days with slow taper (taper to begin 05/06). Continue empiric antibiotics. Critical care time 30 minutes spent reviewing charts, reviewing labs, reviewing imaging, discussion with RN. 05/05/2021: Afebrile, on vent with FiO2 100%, PEEP 14. Continue steroids for total of 10 days with slow taper (taper to begin 05/06). Continue empiric antibiotics. Completed remdesivir. Continue to closely monitor blood sugar. Critical care time 30 minutes spent reviewing charts, reviewing labs, reviewing imaging, discussion with RN. 05/06/2021: Afebrile. On vent with FiO2 95%, PEEP 12. Completed 10 days of Decadron; will begin slow taper today and monitor blood sugar. Completed remdesivir. Critical care time 30 minutes spent reviewing charts, reviewing labs, reviewing imaging, discussion with RN. 05/07/2021: No acute vents overnight. Afebrile. On vent with FiO2 95%, PEEP 12. D-dimer improving, 4.72 today. Continue current VTE prophylaxis. Completed 10 days of Decadron; continue slow taper and monitor blood sugar. Completed remdesivir. Critical care time 30 minutes spent reviewing charts, reviewing labs, reviewing imaging, discussion with RN. Vitals/I&O Vitals/I&O: Vital Signs Date Time Temp Pulse Resp B/P (MAP) Pulse Ox O2 Delivery O2 Flow Rate FiO2 05/07/21 07:31 92 Ventilator 05/07/21 06:00 62 28 112/74 (87) 05/07/21 04:00 98.2 98.2 I & O 05/06/21 05/06/21 05/07/21 15:00 23:00 07:00 Intake Total 720 ml 1134 ml 1371 ml Output Total 460 ml 505 ml 600 ml Balance 260 ml 629 ml 771 ml Physical Exam General: No acute distress, Other (Intubated and sedated) Heart: Regular rate Lungs: Other (Intubated on ventilator) Abdomen: No tenderness Extremities: No clubbing, No cyanosis Skin: No rashes, No breakdown Labs Labs: Laboratory Tests Test 05/06/21 13:03 05/06/21 16:55 05/07/21 00:50 05/07/21 05:45 Glucose (Fingerstick) 241 mg/dL (70-99) 254 mg/dL (70-99) 227 mg/dL (70-99) D-Dimer (Pepper) 4.72 ug/mlFEU (0.00-0.50) Test 05/07/21 05:46 Glucose (Fingerstick) 246 mg/dL (70-99) Comment Review of Relevant I have reviewed the following items jeanne (where applicable) has been applied. Medications: Current Medications Medications (Trade) Dose Ordered Sig/Berna Route PRN Reason Start Time Stop Time Status Last Admin Dose Admin Dexamethasone Sodium Phosphate (Decadron) 4 mg DAILY IVP 05/06/21 09:00 05/10/21 08:59 05/06/21 10:21 Multi-Ingred Cream/Lotion/Oil/ Oint (Artificial Tears Eye Ointment) 1 eliu PRN Q1HR PRN OU DRY EYE 05/06/21 17:30 05/06/21 17:38 Justifications for Admission Other Justification LUH JANE MD May 07, 2021 08:04
[2021-05-07] MEDS: MIDAZOLAM 100mg/100ml NS BAG 100 ML IV PRN ×3 (09:08→18:16)
[2021-05-07] MEDS: PROPOFOL 100 ML IV PRN ×3 (09:09→21:06)
[2021-05-07] MEDS: DOXYCYCLINE HYCLATE 100 MG in IV DEXTROSE 5% 100ML 100 ML IV SCH ×2 (09:09→21:11)
[2021-05-07] MEDS: MINERAL OIL/PETROLATUM,WHITE OPHTH OINT 3.5GM TUBE. OU PRN (09:10)
[2021-05-07] MEDS: MULTIVITAMINS,THERAPEUTIC 5 ML ORAL LIQUID. PEG SCH (09:10)
[2021-05-07] MEDS: DEXAMETHASONE SOD PHOS 4 MG/ML VIAL IVP SCH (09:11)
[2021-05-07] MEDS: ENOXAPARIN 40 MG/0.4 ML SYRINGE. SQ SCH ×2 (09:11→21:15)
[2021-05-07] MEDS: FAMOTIDINE 20 MG/2 ML VIAL IVP SCH ×2 (09:11→21:11)
[2021-05-07] MEDS: ASPIRIN CHEWABLE 81 MG TABLET. PO SCH (09:11)
[2021-05-07 09:50] LABS: FIO2 ABG 95/VENT
[2021-05-07] MEDS ORDERED: FUROSEMIDE 20 MG/2 ML VIAL. IVP ONE (10:45)
[2021-05-07] MEDS: INSULIN GLARGINE SYRINGE. SQ SCH (21:12)
[2021-05-08] VITALS (24 sets, daily range): BP systolic 90–123; BP diastolic 58–80
[2021-05-08] MEDS: NORCURON - VECURONIUM 50 MG in IV NORMAL SALINE 50ML 50 ML IV PRN ×3 (00:55→23:59)
[2021-05-08] MEDS: PROPOFOL 100 ML IV PRN ×4 (04:07→21:28)
[2021-05-08] MEDS: DEXMEDETOMIDINE 400 MCG in IV NORMAL SALINE 100ML 96 ML IV PRN ×5 (04:11→18:30)
[2021-05-08] MEDS: MIDAZOLAM 100mg/100ml NS BAG 100 ML IV PRN ×2 (05:39→16:12)
[2021-05-08] MEDS: INSULIN LISPRO 300 UNITS/3 ML VIAL. SQ SCH ×3 (06:00→17:01)
[2021-05-08 06:34] LABS: CALCIUM 8.4 mg/dL (8.5-10.1); CREATININE 0.9 mg/dL (0.7-1.3); GFR 90.1; POTASSIUM 4.5 mmol/L (3.5-5.1)
[2021-05-08 06:51] LABS: BASO # 0.1 x10^3/uL (0.0-0.2); BASO % 1 % (0-3); EOS # 0.2 x10^3/uL (0.0-0.7); EOS % 2 % (0-3); HEMATOCRIT 35.1 % (39.0-53.0); HEMOGLOBIN 11.1 g/dL (13.0-17.5); LYMPH # 0.8 x10^3/uL (1.0-4.8); LYMPH % 7 % (24-48); MEAN CORPUSCULAR HEMOGLOBIN 29 pg (25-35); MEAN CORPUSCULAR HGB CONC 32 g/dL (31-37); MEAN CORPUSCULAR VOLUME 90 fL (79-100); MONO # 1.3 x10^3/uL (0.0-1.1); MONO % 12 % (0-9); NEUT # 8.8 x10^3/uL (1.8-7.7); NEUT % 79 % (31-73); PLATELET COUNT 335 x10^3/uL (140-400); RED BLOOD COUNT 3.89 x10^6/uL (4.30-5.70); RED CELL DISTRIBUTION WIDTH 14.3 % (11.5-14.5); WHITE BLOOD COUNT 11.3 x10^3/uL (4.0-11.0)
--- NOTE | 2021-05-08 07:06 | PDOC ---
PULMONARY PROGRESS NOTES DATE: 05/08/21 TIME: 07:05 Subjective Patient intubated 05/01/2021 due to worsening hypoxia Currently on pressure control mode, inverse i.e. ratio, 100% FiO2 and 12 of PEEP on precedex prop versed fentanly on vec gtt Vitals Vital Signs Date Time Temp Pulse Resp B/P (MAP) Pulse Ox O2 Delivery O2 Flow Rate FiO2 05/08/21 06:00 63 28 101/71 (81) 98 Ventilator 05/08/21 04:00 98.0 98.0 05/07/21 13:07 15.0 Comments ros unable to obtain sedated on vent Patient is seen doing the COVID-19 viral pandemic, nc at rrr no accessory muscle use abd obese + edema no rash Labs Laboratory Tests Test 05/06/21 08:00 05/06/21 13:03 05/06/21 16:55 05/07/21 00:50 O2 Saturation 90 % (92-99) Arterial Blood pH 7.35 (7.35-7.45) Arterial Blood pCO2 at Patient Temp 41 mmHg (35-46) Arterial Blood pO2 at Patient Temp 63 mmHg (75-108) Arterial Blood HCO3 22 mmol/L (21-28) Arterial Blood Base Excess -3 mmol/L (-3-3) FiO2 95 Glucose (Fingerstick) 241 mg/dL (70-99) 254 mg/dL (70-99) 227 mg/dL (70-99) Test 05/07/21 05:45 05/07/21 05:46 05/07/21 07:15 05/07/21 17:35 D-Dimer (Pepper) 4.72 ug/mlFEU (0.00-0.50) Glucose (Fingerstick) 246 mg/dL (70-99) 301 mg/dL (70-99) O2 Saturation 86 % (92-99) Arterial Blood pH 7.34 (7.35-7.45) Arterial Blood pCO2 at Patient Temp 39 mmHg (35-46) Arterial Blood pO2 at Patient Temp 54 mmHg (75-108) Arterial Blood HCO3 20 mmol/L (21-28) Arterial Blood Base Excess -5 mmol/L (-3-3) FiO2 95/vent Test 05/07/21 23:44 05/08/21 05:50 05/08/21 05:58 Glucose (Fingerstick) 199 mg/dL (70-99) 134 mg/dL (70-99) White Blood Count 11.3 x10^3/uL (4.0-11.0) Red Blood Count 3.89 x10^6/uL (4.30-5.70) Hemoglobin 11.1 g/dL (13.0-17.5) Hematocrit 35.1 % (39.0-53.0) Mean Corpuscular Volume 90 fL (79-100) Mean Corpuscular Hemoglobin 29 pg (25-35) Mean Corpuscular Hemoglobin Concent 32 g/dL (31-37) Red Cell Distribution Width 14.3 % (11.5-14.5) Platelet Count 335 x10^3/uL (140-400) Neutrophils (%) (Auto) 79 % (31-73) Lymphocytes (%) (Auto) 7 % (24-48) Monocytes (%) (Auto) 12 % (0-9) Eosinophils (%) (Auto) 2 % (0-3) Basophils (%) (Auto) 1 % (0-3) Neutrophils # (Auto) 8.8 x10^3/uL (1.8-7.7) Lymphocytes # (Auto) 0.8 x10^3/uL (1.0-4.8) Monocytes # (Auto) 1.3 x10^3/uL (0.0-1.1) Eosinophils # (Auto) 0.2 x10^3/uL (0.0-0.7) Basophils # (Auto) 0.1 x10^3/uL (0.0-0.2) Sodium Level 138 mmol/L (136-145) Potassium Level 4.5 mmol/L (3.5-5.1) Chloride Level 105 mmol/L (98-107) Carbon Dioxide Level 30 mmol/L (21-32) Anion Gap 3 (6-14) Blood Urea Nitrogen 34 mg/dL (8-26) Creatinine 0.9 mg/dL (0.7-1.3) Estimated GFR (Cockcroft-Gault) 90.1 Glucose Level 147 mg/dL (70-99) Calcium Level 8.4 mg/dL (8.5-10.1) Laboratory Tests Test 05/07/21 07:15 05/07/21 17:35 05/07/21 23:44 05/08/21 05:50 O2 Saturation 86 % (92-99) Arterial Blood pH 7.34 (7.35-7.45) Arterial Blood pCO2 at Patient Temp 39 mmHg (35-46) Arterial Blood pO2 at Patient Temp 54 mmHg (75-108) Arterial Blood HCO3 20 mmol/L (21-28) Arterial Blood Base Excess -5 mmol/L (-3-3) FiO2 95/vent Glucose (Fingerstick) 301 mg/dL (70-99) 199 mg/dL (70-99) White Blood Count 11.3 x10^3/uL (4.0-11.0) Red Blood Count 3.89 x10^6/uL (4.30-5.70) Hemoglobin 11.1 g/dL (13.0-17.5) Hematocrit 35.1 % (39.0-53.0) Mean Corpuscular Volume 90 fL (79-100) Mean Corpuscular Hemoglobin 29 pg (25-35) Mean Corpuscular Hemoglobin Concent 32 g/dL (31-37) Red Cell Distribution Width 14.3 % (11.5-14.5) Platelet Count 335 x10^3/uL (140-400) Neutrophils (%) (Auto) 79 % (31-73) Lymphocytes (%) (Auto) 7 % (24-48) Monocytes (%) (Auto) 12 % (0-9) Eosinophils (%) (Auto) 2 % (0-3) Basophils (%) (Auto) 1 % (0-3) Neutrophils # (Auto) 8.8 x10^3/uL (1.8-7.7) Lymphocytes # (Auto) 0.8 x10^3/uL (1.0-4.8) Monocytes # (Auto) 1.3 x10^3/uL (0.0-1.1) Eosinophils # (Auto) 0.2 x10^3/uL (0.0-0.7) Basophils # (Auto) 0.1 x10^3/uL (0.0-0.2) Sodium Level 138 mmol/L (136-145) Potassium Level 4.5 mmol/L (3.5-5.1) Chloride Level 105 mmol/L (98-107) Carbon Dioxide Level 30 mmol/L (21-32) Anion Gap 3 (6-14) Blood Urea Nitrogen 34 mg/dL (8-26) Creatinine 0.9 mg/dL (0.7-1.3) Estimated GFR (Cockcroft-Gault) 90.1 Glucose Level 147 mg/dL (70-99) Calcium Level 8.4 mg/dL (8.5-10.1) Test 05/08/21 05:58 Glucose (Fingerstick) 134 mg/dL (70-99) Comments Chest x-ray reviewed 05/06/2021. Mild increase in bilateral interstitial infiltrates. No significant pleural effusions. Chest x-ray reviewed 05/04/2021. Faint bilateral interstitial infiltrates. Not significantly changed Chest x-ray reviewed 05/01/2021 Bilateral interstitial infiltrates which are diffuse and unchanged Chest x-ray reviewed 04/25/2021. Diffuse bilateral interstitial infiltrates Impression . IMPRESSION: 1. Acute hypoxemic respiratory failure secondary to COVID-19 viral pneumonia. Patient failed 100% FiO2 via BiPAP for days. Patient intubated 05/01/2021. Currently on pressure control inverse ratio ventilation and 100% FiO2 and 12 of PEEP 2. COVID-19 viral pneumonia, acute respiratory distress syndrome. 3. Morbid obesity. 4. Mild progression of bilateral interstitial infiltrates dated 05/06/2021, related to COVID-19 viral pneumonia Plan . Updated 05/08 Continue present pressure control mode, inverse ratio ventilation, 100% FiO2 and 12 of PEEP. Follow ABGs and make necessary adjustments. Status post remdesivir, steroids for total of 10 days. Nutritional support with enteral nutrition. DVT prophylaxis adjusted dosage Discussed with RN and respiratory therapist. D-dimer elevated at 10. We will continue present DVT prophylaxis.Repeat D- dimer 4.7 dr moffett Discussed with patient's nephbecca Hill and updated on clinical condition 05/05/2021 Updated 05/07 Continue present pressure control mode, inverse ratio ventilation, 95% FiO2 and 12 of PEEP. has edema lasix 20 mg iv x1 Follow ABGs and make necessary adjustments. Status post remdesivir, steroids for total of 10 days. Nutritional support with enteral nutrition. DVT prophylaxis adjusted dosage Discussed with RN and respiratory therapist. D-dimer elevated at 10. We will continue present DVT prophylaxis.Repeat D- dimer 4.7 dr moffett Discussed with patient's nephbecca Hill and updated on clinical condition Updated 05/06 Continue present pressure control mode, inverse ratio ventilation, 95% FiO2 and 12 of PEEP. Follow ABGs and make necessary adjustments. Status post remdesivir, steroids for total of 10 days. Nutritional support with enteral nutrition. DVT prophylaxis adjusted dosage Discussed with RN and respiratory therapist. D-dimer elevated at 10. We will continue present DVT prophylaxis.Repeat D- dimer in a.m. Discussed with patient's nephew Sergio and updated on clinical condition 05/05/2021 Updated 05/05 Continue present pressure control mode, inverse ratio ventilation and 12 of PEEP. We will wean FiO2 to 95% Follow ABGs and make necessary adjustments. Status post remdesivir, steroids for total of 10 days. Nutritional support with enteral nutrition. DVT prophylaxis adjusted dosage Discussed with RN and respiratory therapist. Chest x-ray with minimal infiltrates. D-dimer elevated at 10. We will continue present DVT prophylaxis. Discussed with patient's nephew Sergio and updated on clinical condition Updated 05/04 Continue present pressure control mode, inverse ratio ventilation and 13 of PEEP. We will wean PEEP to 13 today. Follow ABGs and make necessary adjustments. Status post remdesivir, steroids for total of 10 days. Nutritional support with enteral nutrition. DVT prophylaxis adjusted dosage Discussed with RN and respiratory therapist. Chest x-ray with minimal infiltrates. Severity of hypoxia somewhat out of proportion to the radiographic abnormalities. Will obtain D-dimer today cct 30 min Updated 05/03 Continue present pressure control mode, inverse ratio ventilation and 14 of PEEP. Follow ABGs and make necessary adjustments. Status post remdesivir, steroids for total of 10 days. Nutritional support with enteral nutrition. DVT prophylaxis adjusted dosage Discussed with RN and respiratory therapist. We will reach out to patient's family and updated him about patient's critical condition cct 30 min Updated 05/02 Continue present pressure control mode, inverse ratio ventilation and 14 of PEE P. Follow ABGs and make necessary adjustments. Status post remdesivir, steroids for total of 10 days. Nutritional support with enteral nutrition. DVT prophylaxis adjusted dosage Discussed with RN and respiratory therapist. We will reach out to patient's son and updated him about patient's critical condition cct 30 min [place] ESPITIA MD May 08, 2021 07:06
--- NOTE | 2021-05-08 07:49 | PDOC ---
[facility] PROGRESS NOTE Date of Service DOS: DATE: 05/08/21 TIME: 07:48 Chief Complaint Chief Complaint CC: COVID-19 viral pneumonia Acute hypoxemic respiratory failure Morbid obesity History of Present Illness History of Present Illness 04/26/2021 Patient seen and examined in the ICU He is on BiPAP with as needed Vapotherm Has IV remdesivir hanging Discussed with RN Chart reviewed He appears critically ill 04/27/21: Patient was seen and examined in the ICU today. Afebrile, morbidly obese patient. Currently on BiPAP 18/10. O2 saturation while examined was 100%. Discussed with RN who said patient stated he preferred to be on BiPAP over non- rebreather or Vapotherm. His blood sugar was high today and he was given insulin to bring that down. Patient also has history of anxiety so has been given Xanax. Patient complains of upper back pain so has a Lidocaine patch which he says has been working well for that pain. Chart reviewed. 04/28/21: Patient was seen and examined in the ICU. Currently on BiPAP 20/10 with 100% FiO2. His O2 sat was at 99% while being examined. Peralta to bedside in place. Discussed with RN. Chart reviewed. 04/29/21: Patient seen and examined in the ICU. He is currently on BiPAP 20/10 with 100% FiO2. While being examined, the patient had a 97% O2 sat. Peralta to bedside present. Discussed with RN. Chart reviewed. 04/30/21: Patient was seen and examined in the ICU today. Resting with NAD. He is on BiPAP 20/10. FiO2 is at 100%. Rate is 12. Current O2 sat is at 100%. Patient on Clinimix. Peralta to bedside in place. Discussed with RN. Chart reviewed. 05/01/21: Patient seen and examined in the ICU. Currently on BiPAP 20/6 with FiO2 of 100% and rate of 12. O2 sat while being examined was at 88% O2. Peralta to bedside present. Discussed with RN. Chart reviewed. 05/02/2021: Patient seen in the ICU. Febrile overnight, T-max 100.9 F. On vent with FiO2 100%, PEEP 14. Completed remdesivir. Continue steroids to complete 10-day course with slow taper (last day should be 05/05/2021). Continue empiric antibiotics and supportive care. Critical care time 30 minutes spent reviewing charts, reviewing labs, reviewing imaging, discussion with RN. 05/03/2021: Afebrile. On vent with FiO2 100%, PEEP 14. Completed remdesivir. Continue steroids for total of 10 days with slow taper (taper to begin 05/06). Continue empiric antibiotics. Critical care time 30 minutes spent reviewing charts, reviewing labs, reviewing imaging, discussion with RN. 05/04/2021: Afebrile. On vent with FiO2 100%, PEEP 13. Will increase basal insulin for tighter blood glucose control. Completed remdesivir. Continue steroids for total of 10 days with slow taper (taper to begin 05/06). Continue empiric antibiotics. Critical care time 30 minutes spent reviewing charts, reviewing labs, reviewing imaging, discussion with RN. 05/05/2021: Afebrile, on vent with FiO2 100%, PEEP 14. Continue steroids for total of 10 days with slow taper (taper to begin 05/06). Continue empiric antibiotics. Completed remdesivir. Continue to closely monitor blood sugar. Critical care time 30 minutes spent reviewing charts, reviewing labs, reviewing imaging, discussion with RN. 05/06/2021: Afebrile. On vent with FiO2 95%, PEEP 12. Completed 10 days of Decadron; will begin slow taper today and monitor blood sugar. Completed remdesivir. Critical care time 30 minutes spent reviewing charts, reviewing labs, reviewing imaging, discussion with RN. 05/07/2021: No acute vents overnight. Afebrile. On vent with FiO2 95%, PEEP 12. D-dimer improving, 4.72 today. Continue current VTE prophylaxis. Completed 10 days of Decadron; continue slow taper and monitor blood sugar. Completed remdesivir. Critical care time 30 minutes spent reviewing charts, reviewing labs, reviewing imaging, discussion with RN. 05/08/2021: Afebrile. On vent with FiO2 100%, PEEP 12. No acute events overnight. Completed 10 days of Decadron; continue slow taper (to finish 05/10). Completed remdesivir. Discussed with RN, high tube feed residuals; can hold for now and initiate TPN. Critical care time 30 minutes spent reviewing charts, reviewing labs, reviewing imaging, discussion with RN. Vitals/I&O Vitals/I&O: Vital Signs Date Time Temp Pulse Resp B/P (MAP) Pulse Ox O2 Delivery O2 Flow Rate FiO2 05/08/21 06:00 63 28 101/71 (81) 98 Ventilator 05/08/21 04:00 98.0 98.0 05/07/21 13:07 15.0 I & O 05/07/21 05/07/21 05/08/21 15:00 23:00 07:00 Intake Total 260 ml 1850.12 ml 735 ml Output Total 655 ml 1365 ml 515 ml Balance -395 ml 485.12 ml 220 ml Physical Exam General: No acute distress, Other (Intubated and sedated) Heart: Regular rate Lungs: Other (Intubated on ventilator) Abdomen: No tenderness Extremities: No clubbing, No cyanosis Skin: No rashes, No breakdown Labs Labs: Laboratory Tests Test 05/07/21 17:35 05/07/21 23:44 05/08/21 05:50 05/08/21 05:58 Glucose (Fingerstick) 301 mg/dL (70-99) 199 mg/dL (70-99) 134 mg/dL (70-99) White Blood Count 11.3 x10^3/uL (4.0-11.0) Red Blood Count 3.89 x10^6/uL (4.30-5.70) Hemoglobin 11.1 g/dL (13.0-17.5) Hematocrit 35.1 % (39.0-53.0) Mean Corpuscular Volume 90 fL (79-100) Mean Corpuscular Hemoglobin 29 pg (25-35) Mean Corpuscular Hemoglobin Concent 32 g/dL (31-37) Red Cell Distribution Width 14.3 % (11.5-14.5) Platelet Count 335 x10^3/uL (140-400) Neutrophils (%) (Auto) 79 % (31-73) Lymphocytes (%) (Auto) 7 % (24-48) Monocytes (%) (Auto) 12 % (0-9) Eosinophils (%) (Auto) 2 % (0-3) Basophils (%) (Auto) 1 % (0-3) Neutrophils # (Auto) 8.8 x10^3/uL (1.8-7.7) Lymphocytes # (Auto) 0.8 x10^3/uL (1.0-4.8) Monocytes # (Auto) 1.3 x10^3/uL (0.0-1.1) Eosinophils # (Auto) 0.2 x10^3/uL (0.0-0.7) Basophils # (Auto) 0.1 x10^3/uL (0.0-0.2) Sodium Level 138 mmol/L (136-145) Potassium Level 4.5 mmol/L (3.5-5.1) Chloride Level 105 mmol/L (98-107) Carbon Dioxide Level 30 mmol/L (21-32) Anion Gap 3 (6-14) Blood Urea Nitrogen 34 mg/dL (8-26) Creatinine 0.9 mg/dL (0.7-1.3) Estimated GFR (Cockcroft-Gault) 90.1 Glucose Level 147 mg/dL (70-99) Calcium Level 8.4 mg/dL (8.5-10.1) Comment Review of Relevant I have reviewed the following items jeanne (where applicable) has been applied. Medications: Current Medications Medications (Trade) Dose Ordered Sig/Berna Route PRN Reason Start Time Stop Time Status Last Admin Dose Admin Furosemide (Lasix) 20 mg 1X ONCE IVP 05/07/21 10:45 05/07/21 10:46 DC 05/07/21 12:55 Justifications for Admission Other Justification LUH JANE MD May 08, 2021 07:49
[2021-05-08 08:38] LABS: BASE EXCESS ABG -1 mmol/L (-3-3); HCO3 ABG 23 mmol/L (21-28); PCO2 ABG 35 mmHg (35-46); PO2 ABG 56 mmHg (75-108); SAT O2 ABG 89 % (92-99)
[2021-05-08] MEDS: DOXYCYCLINE HYCLATE 100 MG in IV DEXTROSE 5% 100ML 100 ML IV SCH ×2 (08:46→21:25)
[2021-05-08] MEDS: ASPIRIN CHEWABLE 81 MG TABLET. PO SCH (08:56)
[2021-05-08] MEDS: FAMOTIDINE 20 MG/2 ML VIAL IVP SCH ×2 (08:56→21:25)
[2021-05-08] MEDS: ENOXAPARIN 40 MG/0.4 ML SYRINGE. SQ SCH ×2 (08:56→21:26)
[2021-05-08] MEDS: DEXAMETHASONE SOD PHOS 4 MG/ML VIAL IVP SCH (08:56)
[2021-05-08] MEDS ORDERED: DOCUSATE 100 MG/10 ML SOLUTION. PO PRN (09:00)
[2021-05-08] MEDS: MULTIVITAMINS,THERAPEUTIC 5 ML ORAL LIQUID. PEG SCH (09:02)
[2021-05-08 09:09] LABS: FIO2 ABG 100/VENT
[2021-05-08] MEDS: INSULIN GLARGINE SYRINGE. SQ SCH (21:25)
[2021-05-09] VITALS (21 sets, daily range): BP systolic 66–163; BP diastolic 27–88
[2021-05-09] MEDS: DEXMEDETOMIDINE 400 MCG in IV NORMAL SALINE 100ML 96 ML IV PRN ×3 (00:20→09:11)
[2021-05-09] MEDS: INSULIN LISPRO 300 UNITS/3 ML VIAL. SQ SCH ×4 (00:43→19:42)
[2021-05-09] MEDS: PROPOFOL 100 ML IV PRN ×2 (04:29→08:09)
[2021-05-09] MEDS: MIDAZOLAM 100mg/100ml NS BAG 100 ML IV PRN ×2 (04:30→12:39)
[2021-05-09 06:21] LABS: BASO # 0.2 x10^3/uL (0.0-0.2); BASO % 1 % (0-3); EOS # 0.2 x10^3/uL (0.0-0.7); EOS % 2 % (0-3); HEMATOCRIT 36.1 % (39.0-53.0); HEMOGLOBIN 11.6 g/dL (13.0-17.5); LYMPH # 0.9 x10^3/uL (1.0-4.8); LYMPH % 7 % (24-48); MEAN CORPUSCULAR HEMOGLOBIN 29 pg (25-35); MEAN CORPUSCULAR HGB CONC 32 g/dL (31-37); MEAN CORPUSCULAR VOLUME 90 fL (79-100); MONO # 1.6 x10^3/uL (0.0-1.1); MONO % 13 % (0-9); NEUT # 9.9 x10^3/uL (1.8-7.7); NEUT % 77 % (31-73); PLATELET COUNT 359 x10^3/uL (140-400); RED CELL DISTRIBUTION WIDTH 14.9 % (11.5-14.5); WHITE BLOOD COUNT 12.8 x10^3/uL (4.0-11.0)
[2021-05-09] MEDS: NORCURON - VECURONIUM 50 MG in IV NORMAL SALINE 50ML 50 ML IV PRN ×2 (06:26→11:13)
[2021-05-09 06:34] LABS: CALCIUM 8.4 mg/dL (8.5-10.1); CREATININE 0.8 mg/dL (0.7-1.3); GFR 103.2; POTASSIUM 4.2 mmol/L (3.5-5.1)
--- NOTE | 2021-05-09 07:25 | PDOC ---
PULMONARY PROGRESS NOTES DATE: 05/09/21 TIME: 07:25 Subjective Patient intubated 05/01/2021 due to worsening hypoxia Patient on assist control with inverse ratio 100% FiO2 Vitals Vital Signs Date Time Temp Pulse Resp B/P (MAP) Pulse Ox O2 Delivery O2 Flow Rate FiO2 05/09/21 06:00 85 28 84/57 (66) 90 Ventilator 05/09/21 04:00 98.5 98.5 Comments ros unable to obtain sedated on vent Patient is seen doing the COVID-19 viral pandemic, nc at rrr no accessory muscle use abd obese + edema no rash Labs Laboratory Tests Test 05/07/21 17:35 05/07/21 23:44 05/08/21 05:50 05/08/21 05:58 Glucose (Fingerstick) 301 mg/dL (70-99) 199 mg/dL (70-99) 134 mg/dL (70-99) White Blood Count 11.3 x10^3/uL (4.0-11.0) Red Blood Count 3.89 x10^6/uL (4.30-5.70) Hemoglobin 11.1 g/dL (13.0-17.5) Hematocrit 35.1 % (39.0-53.0) Mean Corpuscular Volume 90 fL (79-100) Mean Corpuscular Hemoglobin 29 pg (25-35) Mean Corpuscular Hemoglobin Concent 32 g/dL (31-37) Red Cell Distribution Width 14.3 % (11.5-14.5) Platelet Count 335 x10^3/uL (140-400) Neutrophils (%) (Auto) 79 % (31-73) Lymphocytes (%) (Auto) 7 % (24-48) Monocytes (%) (Auto) 12 % (0-9) Eosinophils (%) (Auto) 2 % (0-3) Basophils (%) (Auto) 1 % (0-3) Neutrophils # (Auto) 8.8 x10^3/uL (1.8-7.7) Lymphocytes # (Auto) 0.8 x10^3/uL (1.0-4.8) Monocytes # (Auto) 1.3 x10^3/uL (0.0-1.1) Eosinophils # (Auto) 0.2 x10^3/uL (0.0-0.7) Basophils # (Auto) 0.1 x10^3/uL (0.0-0.2) Sodium Level 138 mmol/L (136-145) Potassium Level 4.5 mmol/L (3.5-5.1) Chloride Level 105 mmol/L (98-107) Carbon Dioxide Level 30 mmol/L (21-32) Anion Gap 3 (6-14) Blood Urea Nitrogen 34 mg/dL (8-26) Creatinine 0.9 mg/dL (0.7-1.3) Estimated GFR (Cockcroft-Gault) 90.1 Glucose Level 147 mg/dL (70-99) Calcium Level 8.4 mg/dL (8.5-10.1) Test 05/08/21 08:00 05/08/21 12:52 05/08/21 17:00 05/09/21 00:34 O2 Saturation 89 % (92-99) Arterial Blood pH 7.43 (7.35-7.45) Arterial Blood pCO2 at Patient Temp 35 mmHg (35-46) Arterial Blood pO2 at Patient Temp 56 mmHg (75-108) Arterial Blood HCO3 23 mmol/L (21-28) Arterial Blood Base Excess -1 mmol/L (-3-3) FiO2 100/vent Glucose (Fingerstick) 219 mg/dL (70-99) 228 mg/dL (70-99) 155 mg/dL (70-99) Test 05/09/21 06:00 05/09/21 06:02 White Blood Count 12.8 x10^3/uL (4.0-11.0) Red Blood Count 4.00 x10^6/uL (4.30-5.70) Hemoglobin 11.6 g/dL (13.0-17.5) Hematocrit 36.1 % (39.0-53.0) Mean Corpuscular Volume 90 fL (79-100) Mean Corpuscular Hemoglobin 29 pg (25-35) Mean Corpuscular Hemoglobin Concent 32 g/dL (31-37) Red Cell Distribution Width 14.9 % (11.5-14.5) Platelet Count 359 x10^3/uL (140-400) Neutrophils (%) (Auto) 77 % (31-73) Lymphocytes (%) (Auto) 7 % (24-48) Monocytes (%) (Auto) 13 % (0-9) Eosinophils (%) (Auto) 2 % (0-3) Basophils (%) (Auto) 1 % (0-3) Neutrophils # (Auto) 9.9 x10^3/uL (1.8-7.7) Lymphocytes # (Auto) 0.9 x10^3/uL (1.0-4.8) Monocytes # (Auto) 1.6 x10^3/uL (0.0-1.1) Eosinophils # (Auto) 0.2 x10^3/uL (0.0-0.7) Basophils # (Auto) 0.2 x10^3/uL (0.0-0.2) Sodium Level 136 mmol/L (136-145) Potassium Level 4.2 mmol/L (3.5-5.1) Chloride Level 104 mmol/L (98-107) Carbon Dioxide Level 30 mmol/L (21-32) Anion Gap 2 (6-14) Blood Urea Nitrogen 33 mg/dL (8-26) Creatinine 0.8 mg/dL (0.7-1.3) Estimated GFR (Cockcroft-Gault) 103.2 Glucose Level 156 mg/dL (70-99) Calcium Level 8.4 mg/dL (8.5-10.1) Glucose (Fingerstick) 168 mg/dL (70-99) Laboratory Tests Test 05/08/21 08:00 05/08/21 12:52 05/08/21 17:00 05/09/21 00:34 O2 Saturation 89 % (92-99) Arterial Blood pH 7.43 (7.35-7.45) Arterial Blood pCO2 at Patient Temp 35 mmHg (35-46) Arterial Blood pO2 at Patient Temp 56 mmHg (75-108) Arterial Blood HCO3 23 mmol/L (21-28) Arterial Blood Base Excess -1 mmol/L (-3-3) FiO2 100/vent Glucose (Fingerstick) 219 mg/dL (70-99) 228 mg/dL (70-99) 155 mg/dL (70-99) Test 05/09/21 06:00 05/09/21 06:02 White Blood Count 12.8 x10^3/uL (4.0-11.0) Red Blood Count 4.00 x10^6/uL (4.30-5.70) Hemoglobin 11.6 g/dL (13.0-17.5) Hematocrit 36.1 % (39.0-53.0) Mean Corpuscular Volume 90 fL (79-100) Mean Corpuscular Hemoglobin 29 pg (25-35) Mean Corpuscular Hemoglobin Concent 32 g/dL (31-37) Red Cell Distribution Width 14.9 % (11.5-14.5) Platelet Count 359 x10^3/uL (140-400) Neutrophils (%) (Auto) 77 % (31-73) Lymphocytes (%) (Auto) 7 % (24-48) Monocytes (%) (Auto) 13 % (0-9) Eosinophils (%) (Auto) 2 % (0-3) Basophils (%) (Auto) 1 % (0-3) Neutrophils # (Auto) 9.9 x10^3/uL (1.8-7.7) Lymphocytes # (Auto) 0.9 x10^3/uL (1.0-4.8) Monocytes # (Auto) 1.6 x10^3/uL (0.0-1.1) Eosinophils # (Auto) 0.2 x10^3/uL (0.0-0.7) Basophils # (Auto) 0.2 x10^3/uL (0.0-0.2) Sodium Level 136 mmol/L (136-145) Potassium Level 4.2 mmol/L (3.5-5.1) Chloride Level 104 mmol/L (98-107) Carbon Dioxide Level 30 mmol/L (21-32) Anion Gap 2 (6-14) Blood Urea Nitrogen 33 mg/dL (8-26) Creatinine 0.8 mg/dL (0.7-1.3) Estimated GFR (Cockcroft-Gault) 103.2 Glucose Level 156 mg/dL (70-99) Calcium Level 8.4 mg/dL (8.5-10.1) Glucose (Fingerstick) 168 mg/dL (70-99) Comments Chest x-ray reviewed 05/06/2021. Mild increase in bilateral interstitial infiltrates. No significant pleural effusions. Chest x-ray reviewed 05/04/2021. Faint bilateral interstitial infiltrates. Not significantly changed Chest x-ray reviewed 05/01/2021 Bilateral interstitial infiltrates which are diffuse and unchanged Chest x-ray reviewed 04/25/2021. Diffuse bilateral interstitial infiltrates Impression . IMPRESSION: 1. Acute hypoxemic respiratory failure secondary to COVID-19 viral pneumonia. Status post intubation 05/01 2. COVID-19 viral pneumonia, acute respiratory distress syndrome. 3. Morbid obesity. 4. Mild progression of bilateral interstitial infiltrates dated 05/06/2021, related to COVID-19 viral pneumonia 5. Plan . Updated/05/09 Chest x-ray reviewed, slight pneumothorax on the right side, will proceed with chest tube placement Continue current support Status post remdesivir Steroids for a total of 10 days DVT GI prophylaxis Nutritional support updated 05/08 Continue present pressure control mode, inverse ratio ventilation, 100% FiO2 and 12 of PEEP. Follow ABGs and make necessary adjustments. Status post remdesivir, steroids for total of 10 days. Nutritional support with enteral nutrition. DVT prophylaxis adjusted dosage Discussed with RN and respiratory therapist. D-dimer elevated at 10. We will continue present DVT prophylaxis.Repeat D- dimer 4.7 dr moffett Discussed with patient's nephew Sergio and updated on clinical condition 05/05/2021 Updated 05/07 Continue present pressure control mode, inverse ratio ventilation, 95% FiO2 and 12 of PEEP. has edema lasix 20 mg iv x1 Follow ABGs and make necessary adjustments. Status post remdesivir, steroids for total of 10 days. Nutritional support with enteral nutrition. DVT prophylaxis adjusted dosage Discussed with RN and respiratory therapist. D-dimer elevated at 10. We will continue present DVT prophylaxis.Repeat D- dimer 4.7 dr moffett Discussed with patient's nephbecca Hill and updated on clinical condition 05/05/2021 Updated 05/06 Continue present pressure control mode, inverse ratio ventilation, 95% FiO2 and 12 of PEEP. Follow ABGs and make necessary adjustments. Status post remdesivir, steroids for total of 10 days. Nutritional support with enteral nutrition. DVT prophylaxis adjusted dosage Discussed with RN and respiratory therapist. D-dimer elevated at 10. We will continue present DVT prophylaxis.Repeat D- dimer in a.m. Discussed with patient's nephew Sergio and updated on clinical condition 05/05/2021 Updated 05/05 Continue present pressure control mode, inverse ratio ventilation and 12 of PEEP. We will wean FiO2 to 95% Follow ABGs and make necessary adjustments. Status post remdesivir, steroids for total of 10 days. Nutritional support with enteral nutrition. DVT prophylaxis adjusted dosage Discussed with RN and respiratory therapist. Chest x-ray with minimal infiltrates. D-dimer elevated at 10. We will continue present DVT prophylaxis. Discussed with patient's nephew Sergio and updated on clinical condition Updated 05/04 Continue present pressure control mode, inverse ratio ventilation and 13 of PEEP. We will wean PEEP to 13 today. Follow ABGs and make necessary adjustments. Status post remdesivir, steroids for total of 10 days. Nutritional support with enteral nutrition. DVT prophylaxis adjusted dosage Discussed with RN and respiratory therapist. Chest x-ray with minimal infiltrates. Severity of hypoxia somewhat out of p roportion to the radiographic abnormalities. Will obtain D-dimer today cct 30 min Updated 05/03 Continue present pressure control mode, inverse ratio ventilation and 14 of PEEP. Follow ABGs and make necessary adjustments. Status post remdesivir, steroids for total of 10 days. Nutritional support with enteral nutrition. DVT prophylaxis adjusted dosage Discussed with RN and respiratory therapist. We will reach out to patient's family and updated him about patient's critical condition cct 30 min Updated 05/02 Continue present pressure control mode, inverse ratio ventilation and 14 of PEEP. Follow ABGs and make necessary adjustments. Status post remdesivir, steroids for total of 10 days. Nutritional support with enteral nutrition. DVT prophylaxis adjusted dosage Discussed with RN and respiratory therapist. We will reach out to patient's son and updated him about patient's critical co ndition cct 30 min HEATHER MOLINA MD May 09, 2021 07:25
[2021-05-09] MEDS: MULTIVITAMINS,THERAPEUTIC 5 ML ORAL LIQUID. PEG SCH (08:09)
[2021-05-09] MEDS: DEXAMETHASONE SOD PHOS 4 MG/ML VIAL IVP SCH (08:10)
[2021-05-09] MEDS: ENOXAPARIN 40 MG/0.4 ML SYRINGE. SQ SCH (08:10)
[2021-05-09] MEDS: ASPIRIN CHEWABLE 81 MG TABLET. PO SCH (08:10)
[2021-05-09] MEDS: FAMOTIDINE 20 MG/2 ML VIAL IVP SCH (08:11)
[2021-05-09] MEDS: DOXYCYCLINE HYCLATE 100 MG in IV DEXTROSE 5% 100ML 100 ML IV SCH (08:15)
--- NOTE | 2021-05-09 08:22 | RAD ---
Single view of the chest. 05/09/2021 6:21 AM Indication: Reason: RF/ARDS/COVID 114 / Spl. Instructions: / History: Comparison: Chest radiograph May 06, 2021 Findings: There is a new small right apical pneumothorax. There is no pleural effusion. Interstitial alveolar infiltrates are similar. Endotracheal tube, enteric tube, and right internal jugular central line are stable in appearance. No acute osseous changes are noted. IMPRESSION: 1. New small right apical pneumothorax 2. Interstitial alveolar infiltrates, similar to prior study 3. Support lines and tubes as described findings called to the ICU nurse at 8:25 AM Electronically signed by: Marquis Hightower MD (05/09/2021 8:19 AM) [id number]
[2021-05-09 09:27] LABS: BASE EXCESS ABG -1 mmol/L (-3-3); HCO3 ABG 27 mmol/L (21-28); PCO2 ABG 57 mmHg (35-46)
[2021-05-09 09:31] LABS: FIO2 ABG 100; PO2 ABG < 42 mmHg (75-108); SAT O2 ABG 48 % (92-99)
--- NOTE | 2021-05-09 11:38 | PDOC ---
[facility] [facility] PROGRESS NOTE Date of Service DOS: DATE: 05/09/21 TIME: 11:37 Chief Complaint Chief Complaint CC: COVID-19 viral pneumonia Acute hypoxemic respiratory failure Morbid obesity History of Present Illness History of Present Illness 04/26/2021 Patient seen and examined in the ICU He is on BiPAP with as needed Vapotherm Has IV remdesivir hanging Discussed with RN Chart reviewed He appears critically ill 04/27/21: Patient was seen and examined in the ICU today. Afebrile, morbidly obese patient. Currently on BiPAP 18/10. O2 saturation while examined was 100%. Discussed with RN who said patient stated he preferred to be on BiPAP over non- rebreather or Vapotherm. His blood sugar was high today and he was given insulin to bring that down. Patient also has history of anxiety so has been given Xanax. Patient complains of upper back pain so has a Lidocaine patch which he says has been working well for that pain. Chart reviewed. 04/28/21: Patient was seen and examined in the ICU. Currently on BiPAP 20/10 with 100% FiO2. His O2 sat was at 99% while being examined. Peralta to bedside in place. Discussed with RN. Chart reviewed. 04/29/21: Patient seen and examined in the ICU. He is currently on BiPAP 20/10 with 100% FiO2. While being examined, the patient had a 97% O2 sat. Peralta to bedside present. Discussed with RN. Chart reviewed. 04/30/21: Patient was seen and examined in the ICU today. Resting with NAD. He is on BiPAP 20/10. FiO2 is at 100%. Rate is 12. Current O2 sat is at 100%. Patient on Clinimix. Peralta to bedside in place. Discussed with RN. Chart reviewed. 05/01/21: Patient seen and examined in the ICU. Currently on BiPAP 20/6 with FiO2 of 100% and rate of 12. O2 sat while being examined was at 88% O2. Peralta to bedside present. Discussed with RN. Chart reviewed. 05/02/2021: Patient seen in the ICU. Febrile overnight, T-max 100.9 F. On vent with FiO2 100%, PEEP 14. Completed remdesivir. Continue steroids to complete 10-day course with slow taper (last day should be 05/05/2021). Continue empiric antibiotics and supportive care. Critical care time 30 minutes spent reviewing charts, reviewing labs, reviewing imaging, discussion with RN. 05/03/2021: Afebrile. On vent with FiO2 100%, PEEP 14. Completed remdesivir. Continue steroids for total of 10 days with slow taper (taper to begin 05/06). Continue empiric antibiotics. Critical care time 30 minutes spent reviewing charts, reviewing labs, reviewing imaging, discussion with RN. 05/04/2021: Afebrile. On vent with FiO2 100%, PEEP 13. Will increase basal insulin for tighter blood glucose control. Completed remdesivir. Continue steroids for total of 10 days with slow taper (taper to begin 05/06). Continue empiric antibiotics. Critical care time 30 minutes spent reviewing charts, reviewing labs, reviewing imaging, discussion with RN. 05/05/2021: Afebrile, on vent with FiO2 100%, PEEP 14. Continue steroids for total of 10 days with slow taper (taper to begin 05/06). Continue empiric antibiotics. Completed remdesivir. Continue to closely monitor blood sugar. Critical care time 30 minutes spent reviewing charts, reviewing labs, reviewing imaging, discussion with RN. 05/06/2021: Afebrile. On vent with FiO2 95%, PEEP 12. Completed 10 days of Decadron; will begin slow taper today and monitor blood sugar. Completed remdesivir. Critical care time 30 minutes spent reviewing charts, reviewing labs, reviewing imaging, discussion with RN. 05/07/2021: No acute vents overnight. Afebrile. On vent with FiO2 95%, PEEP 12. D-dimer improving, 4.72 today. Continue current VTE prophylaxis. Completed 10 days of Decadron; continue slow taper and monitor blood sugar. Completed remdesivir. Critical care time 30 minutes spent reviewing charts, reviewing labs, reviewing imaging, discussion with RN. 05/08/2021: Afebrile. On vent with FiO2 100%, PEEP 12. No acute events overnight. Completed 10 days of Decadron; continue slow taper (to finish 05/10). Completed remdesivir. Discussed with RN, high tube feed residuals; can hold for now and initiate TPN. Critical care time 30 minutes spent reviewing charts, reviewing labs, reviewing imaging, discussion with RN. 05/09 Patient evaluated at bedside. Remains intubated and sedated. Chest x-ray this morning showed no new pneumothorax, planning for chest tube placement later today. Continue TPN. Continue COVID treatment otherwise. Vent settings remain relatively high. Plan of care discussed with bedside RN. Vitals/I&O Vitals/I&O: Vital Signs Date Time Temp Pulse Resp B/P (MAP) Pulse Ox O2 Delivery O2 Flow Rate FiO2 05/09/21 11:00 111 119/72 (88) 81 Ventilator 05/09/21 10:07 15.0 05/09/21 08:00 97.9 97.9 05/09/21 06:00 28 I & O 05/08/21 05/08/21 05/09/21 15:00 23:00 07:00 Intake Total 240 ml 1021.98 ml 1551 ml Output Total 530 ml 550 ml 470 ml Balance -290 ml 471.98 ml 1081 ml Physical Exam General: No acute distress, Other (Intubated and sedated) Heart: Regular rate Abdomen: No tenderness Extremities: No clubbing, No cyanosis Skin: No rashes, No breakdown Labs Labs: Laboratory Tests Test 05/08/21 12:52 05/08/21 17:00 05/09/21 00:34 05/09/21 06:00 Glucose (Fingerstick) 219 mg/dL (70-99) 228 mg/dL (70-99) 155 mg/dL (70-99) White Blood Count 12.8 x10^3/uL (4.0-11.0) Red Blood Count 4.00 x10^6/uL (4.30-5.70) Hemoglobin 11.6 g/dL (13.0-17.5) Hematocrit 36.1 % (39.0-53.0) Mean Corpuscular Volume 90 fL (79-100) Mean Corpuscular Hemoglobin 29 pg (25-35) Mean Corpuscular Hemoglobin Concent 32 g/dL (31-37) Red Cell Distribution Width 14.9 % (11.5-14.5) Platelet Count 359 x10^3/uL (140-400) Neutrophils (%) (Auto) 77 % (31-73) Lymphocytes (%) (Auto) 7 % (24-48) Monocytes (%) (Auto) 13 % (0-9) Eosinophils (%) (Auto) 2 % (0-3) Basophils (%) (Auto) 1 % (0-3) Neutrophils # (Auto) 9.9 x10^3/uL (1.8-7.7) Lymphocytes # (Auto) 0.9 x10^3/uL (1.0-4.8) Monocytes # (Auto) 1.6 x10^3/uL (0.0-1.1) Eosinophils # (Auto) 0.2 x10^3/uL (0.0-0.7) Basophils # (Auto) 0.2 x10^3/uL (0.0-0.2) Sodium Level 136 mmol/L (136-145) Potassium Level 4.2 mmol/L (3.5-5.1) Chloride Level 104 mmol/L (98-107) Carbon Dioxide Level 30 mmol/L (21-32) Anion Gap 2 (6-14) Blood Urea Nitrogen 33 mg/dL (8-26) Creatinine 0.8 mg/dL (0.7-1.3) Estimated GFR (Cockcroft-Gault) 103.2 Glucose Level 156 mg/dL (70-99) Calcium Level 8.4 mg/dL (8.5-10.1) Test 05/09/21 06:02 05/09/21 09:00 Glucose (Fingerstick) 168 mg/dL (70-99) O2 Saturation 48 % (92-99) Arterial Blood pH 7.29 (7.35-7.45) Arterial Blood pCO2 at Patient Temp 57 mmHg (35-46) Arterial Blood pO2 at Patient Temp < 42 mmHg (75-108) Arterial Blood HCO3 27 mmol/L (21-28) Arterial Blood Base Excess -1 mmol/L (-3-3) FiO2 100 Comment Review of Relevant I have reviewed the following items jeanne (where applicable) has been applied. Justifications for Admission Other Justification JANET RODRIGUEZ MD May 09, 2021 11:38
[2021-05-09] MEDS ORDERED: NOREPINEPHRINE VIAL 8 MG in IV DEXTROSE 5% 250 ML IV PRN ×2 (12:30→17:30)
--- NOTE | 2021-05-09 13:46 | PDOC4 ---
PROCEDURE Procedure Right-sided 24 chest tube placement Indication spontaneous pneumothorax on mechanical support high PEEP COVID-19 viral pneumonia/ARDS Timeout was performed prior to inserting chest tube. Patient was prepped in sterile fashion. An incision was made mid axillary approximately fourth fifth intercostal space. Utilizing a Kayce I I performed a blunt dissection, down to the intercostal space. Upon identifying the intercostal space a Kayce was utilized to enter the subpleural space. There was minimal amount of air that escape from the subpleural space. A 24 [place] tube was inserted with no resistance. It was sutured at the skin with interrupted sutures. It was secured the with Vaseline gauze and tape. Patient tolerated procedure well with no immediate complications there was a continuous air leak once attached to the Pleur-vac, patient tolerated procedure well with no immediate complication HEATHER MOLINA MD May 09, 2021 13:46
--- NOTE | 2021-05-09 16:04 | RAD ---
Single view of the chest. 05/09/2021 10:29 AM Indication: Reason: chest tube placmenet / Spl. Instructions: / History: Comparison: Chest radiograph, earlier today Findings: There is a right-sided thoracostomy tube with tip in apex. There is a small right pneumotho rax. There is an endotracheal tube in place with tip 6 cm above the adebayo. There is a right-sided ce ntral line tip projecting over the expected region of the cavoatrial junction. An enteric tube is not ed to be in place extending below the diaphragm. Patchy interstitial and alveolar infiltrates are sim ilar to comparison study. No acute osseous changes are noted in the interim. IMPRESSION: 1. New right-sided thoracostomy tube with tip in the apex. Small right pneumothorax is similar. 2. Otherwise stable support lines and tubes 3. Diffuse pulmonary infiltrates, similar to comparison exam Electronically signed by: Marquis Hightower MD (05/09/2021 4:01 PM) [id number]
[2021-05-09] MEDS ORDERED: PHENYLEPHRINE INJ 50 MG in IV NORMAL SALINE 250ML 250 ML IV PRN (16:15)
--- NOTE | 2021-05-09 16:38 | NUR ---
SS following up with discharge planning. SS reviewed pt chart and discussed with pt RN. Pt is currently on the vent at 100%. COVID19 positive. Pt on IV Decadron and IV Doxycycline. Pt on Vec, Fentanyl, Versed, and Phenylephrine. Not stable. SS will continue to follow for discharge planning.
[2021-05-09] MEDS ORDERED: EPINEPHrine SYRINGE 1 MG/10 ML SYRINGE ONE (17:12)
[2021-05-09] MEDS ORDERED: CALCIUM CHLORIDE 1,000 MG/10 ML DISP.SYRIN ONE (17:12)
[2021-05-09] MEDS ORDERED: SODIUM BICARB ADULT 8.4% 50 MEQ/50 ML DISP.SYRIN. ONE (17:12)
[2021-05-09 17:36] LABS: BASE EXCESS ABG -18 mmol/L (-3-3); HCO3 ABG 16 mmol/L (21-28)
[2021-05-09 17:41] LABS: PCO2 ABG 88 mmHg (35-46); PO2 ABG 47 mmHg (75-108)
[2021-05-09 17:42] LABS: FIO2 ABG 100; SAT O2 ABG 57 % (92-99)
--- NOTE | 2021-05-09 17:50 | RAD ---
XR CHEST 1V 5:31 PM CLINICAL INDICATIONS: Reason: post code / Spl. Instructions: / History: COMPARISON: May 09, 2021 performed at 10:35 AM FINDINGS/ IMPRESSION: There've been no interval tube or line changes. No pneumothorax is seen. Diffuse bilatera l lung infiltrates or pulmonary edema are unchanged given differences in technique. Heart size and me diastinum are stable. No pleural effusion is seen. Electronically signed by: Burak Kauffman MD (05/09/2021 5:48 PM) [id number]
[2021-05-09] MEDS ORDERED: NOREPINEPHRINE VIAL 32 MG in IV D5W 250ML IV PRN (18:30)
--- NOTE | 2021-05-09 18:30 | PHYS DOC ---
CODE REPORT CODE REPORT Physician code documentation: I was called to the room for Mr. Brandt, a 46-year-old male who is hospitalized with ARDS in the setting of COVID-19 pneumonia. Prior to arrest I was told he was on 100% FiO2, PEEP 14 and continuing to sat in the 70s. He suffered a right-sided pneumothorax and is s/p chest tube placement earlier today. Patient was recently transitioned from norepinephrine drip to phenylephrine drip prior to arrest. Arrest was reportedly bradycardia/PEA at 1712. Chest compressions were begun. Received bicarb x2, calcium x1, and epinephrine x3 during the course of his arrest. He was found to have ROSC at 1719. Breath sounds were present bilaterally. Follow-up chest x-ray showed chest tube is in good position, without recurrent pneumothorax. Phenylephrine was discontinued and norepinephrine drip was restarted. O2 sats were unfortunately in the 20s and 30s with good waveform following his ROSC. Arrest ultimately most likely 2/2 hypoxia. I asked nursing staff to draw a stat BMP and ABG prior to returning to the ED. RAFAELA CARTER MD May 09, 2021 18:29
[2021-05-09 18:37] LABS: CALCIUM 8.5 mg/dL (8.5-10.1); CREATININE 2.3 mg/dL (0.7-1.3); GFR 30.5
[2021-05-09 19:08] LABS: POTASSIUM 6.4 mmol/L (3.5-5.1)
[2021-05-09] MEDS ORDERED: DEXTROSE 50% 25 GM / 50ML DISP.SYRIN. IV ONE (19:15)
[2021-05-09] MEDS ORDERED: CALCIUM GLUCONATE 1,000 MG/10 ML VIAL. IVP ONE (19:15)
[2021-05-09] MEDS ORDERED: INSULIN REGULAR 100 UNIT/ML 3ML VIAL. IV ONE (19:15)
[2021-05-09] MEDS ORDERED: NORMAL SALINE IV ONE (19:30)
[2021-05-09] MEDS ORDERED: INSULIN REGULAR IV ONE (19:30)
--- NOTE | 2021-05-09 19:41 | NUR ---
7A-7P: Persistent hypoxia worsening after placement of chest tube apical area right lung noted on todays cxr.#[address] De Oliveira,_ 20 ,no bubbling noted in chamber. Approx 20 ml serous sang drainage. Bilateral rise and fall w cxr verification of trochar placement. ABGs noted per MD-no new orders. BP labile w levo started +/- 1330. Tachyarrhythmia [address] Hua informed. Meds per order w little rate change noted Gtt started then Dcd after cardiology consult. Informed per MD "HR is refractory to oxygenation"Orders noted. Levo stopped w start of phenylephrine. Gradual slowing of HR - from 144-110. Slight improvement SPO2. Sudden drop in NBP w slowing of HR to PEA. 15 min code w ROSC. Family notified of grave situation. Repeat code approx 20 min after #1 w family notified at that time. No decision for "Comfort Care". Encouraged to call for updates and any change in thought process . Pupils fixed/ & nonresponsive, Doppler peripheral pulses. Ordered labs and pending. See freq VS on chart -hard copy condition serious w information provided to family.
--- NOTE | 2021-05-09 20:02 | NUR ---
Note: tube feed stopped 1200,no bowel sounds,abd firm. To suction w 400 out. Tube feed not restarted on 7A shift.
--- NOTE | 2021-05-09 21:05 | NUR ---
At shift change, patient continuously deteriorating. Attempted to turn up levo per protocol from 0.7 mcg/kg/min starting at 1914 until 1949 (Levo ended at 0.9 mcg/kg/min). No improvement in BP despite pressor increase. Patient coded x2, but after 2 rounds of CPR and a few Epi patient had pulse both times. Dr. De Oliveira was notified, order received to do 1 round of compressions with no medications next time he coded. Patient coded, one round of CPR performed, ROSC not achieved. Patient at 1954. Dr. De Oliveira notified of at 1999, Dr. Bravo notified of at 2009. Patient's son notified, questions answered and he stated he would call his brother to discuss the home options. [facility] notified at 2049--not a candidate R/T COVID. 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
== END 2021-05-09 19:55 | DRG 207 ==
LOC: 1 WEST ICU 18:03
PROVIDERS: ADMIT Family Medicine; ATTEND Family Medicine
PROC: XW033E5 Introduction of Remdesivir Anti-infective into Peripheral Vein, Percutaneous Approach, New Technology Group 5 (ICD-10-PCS; 2021-04-25)
PROC: 5A09557 Assistance with Respiratory Ventilation, Greater than 96 Consecutive Hours, Continuous Positive Airway Pressure (ICD-10-PCS; 2021-04-25)
PROC: 5A1935Z Respiratory Ventilation, Less than 24 Consecutive Hours (ICD-10-PCS; 2021-04-27)
PROC: 5A1955Z Respiratory Ventilation, Greater than 96 Consecutive Hours (ICD-10-PCS; principal; 2021-05-01)
PROC: 0BH17EZ Insertion of Endotracheal Airway into Trachea, Via Natural or Artificial Opening (ICD-10-PCS; 2021-05-01)
PROC: 02H633Z Insertion of Infusion Device into Right Atrium, Percutaneous Approach (ICD-10-PCS; 2021-05-01)
PROC: 0W9930Z Drainage of Right Pleural Cavity with Drainage Device, Percutaneous Approach (ICD-10-PCS; 2021-05-09)
DX: U07.1 COVID-19 (principal); J12.82 Pneumonia due to coronavirus disease 2019; J96.01 Acute respiratory failure with hypoxia; J93.83 Other pneumothorax; Z68.43 Body mass index [BMI] 50.0-59.9, adult; E66.01 Morbid (severe) obesity due to excess calories; Z82.49 Family history of ischemic heart disease and other diseases of the circulatory system; F41.9 Anxiety disorder, unspecified; Z79.899 Other long term (current) drug therapy; I46.9 Cardiac arrest, cause unspecified; I50.9 Heart failure, unspecified
CPT/HCPCS: 36415; 36600; 71045; 80048; 82805; 82962; 83036; 83735; 85007; 85025; 85027; 85379; 94002; 94003; 94660; 94760; J0171; J0330; J0610; J0696; J1100; J1650; J1815; J1940; J2250; J2704; J3010; J3490; J7050; J7060; G0378; J7030